=== PATIENT | female | born 1960 | race African-American/Black ===

== ENCOUNTER 2016-12-21 07:24 | Day surgery (SDC) | payer MEDICAID ==
[~2016-12-21 07:24] MED LIST: BUPIVACAINE HCL 0.75% INJ/PF (7.5 MG/1 ML) 10 ML SDV OS PRN; FENTANYL CITRATE INJ/PF 100 MCG/2 ML AMPUL ONE; KETOROLAC TROMETHAMINE 0.45% 4 DROP/0.4 ML DROPERETTE OS PRN; MIDAZOLAM 2 MG/2 ML INJ ONE
[2016-12-21] MEDS ORDERED: LIDOCAINE 1% INJ-PF (10 MG/ML) 30 ML SDV ONE (07:41)
[2016-12-21] MEDS ORDERED: CHONDR SU A NA/HYALUR INTRAOC KIT (SURGICARE) ONE (07:41)
[2016-12-21] MEDS ORDERED: EPINEPHRINE INJ/PF 1 MG/1 ML AMPULE ONE (07:41)
[2016-12-21] MEDS: CYCLOPENTOLATE 0.2%/PHENYLEPHRINE 1% OPH SOLN 2 ML OS PRN ×3 (07:47→08:07)
[2016-12-21] MEDS: BESIFLOXACIN HCL 0.6% OPH SUSP 5 ML BOTTLE OS PRN ×4 (07:47→08:52)
[2016-12-21] MEDS: TROPICAMIDE 1% OPH SOLN 3 ML OS PRN ×3 (07:47→08:07)
[2016-12-21] MEDS: TETRACAINE HCL 0.5% OPH SOLN 2 ML OS PRN ×3 (07:48→08:27)
--- NOTE | 2016-12-24 20:39 | [facility] DISCHARGE SUMMARY E ---
[facility] Discharge Summary NAME: PANCHO ARCE AGE: 56Y ADMITTED: 12/21/2016 DISCHARGED: 12/21/2016 HISTORY OF PRESENT ILLNESS AND HOSPITAL COURSE: This is a 56-year-old female who underwent cataract extraction of the left eye. DIAGNOSIS: Cataract, left eye. HOSPITAL COURSE: She underwent surgery because she was having trouble seeing fine print. DISCHARGE INSTRUCTIONS: 1. She should be on a regular diet. 2. No bending at her waist and no heavy lifting. 3. She should use her Besivance, Ilevro, and Durezol at 3 p.m. and 8 p.m. and sleep with a rigid shield. 4. I will see her for her one-day postoperative tomorrow. DICTATING PHYSICIAN: PAM CRWALEY M.D. [id number] PHY#: [id number] ID: [id number] JOB#: [id number] ACCT: [id number] cc:PAM CRAWLEY M.D. >
--- NOTE | 2016-12-24 20:39 | [facility] OPERATIVE REPORT E ---
[facility] Operative Report NAME: PANCHO ARCE AGE: 56Y DATE OF SURGERY: 12/21/2016 ROOM: PREOPERATIVE DIAGNOSIS: Cataract, left eye. POSTOPERATIVE DIAGNOSIS: Cataract, left eye. OPERATION: Cataract extraction with intraocular lens implant of the left eye. SURGEON: PAM CRAWLEY M.D. ANESTHESIA: Topical. PROCEDURE: After obtaining appropriate consent, the patient's left eye was prepped and draped in sterile fashion as well as the surgeon in a sterile manner and cataract surgery was started. First a paracentesis blade was used to make a small side-port incision. Viscoelastic was used to inflate the anterior chamber. Next a 2.4 mm incision was made with the paracentesis blade. A continuous capsulorrhexis incision was made using a cystotome and Utrata forceps. Following this hydrodissection was carried out to make the lens fully loose and mobile and it was rotated 90 degrees. Following this, a zkqgop-tsn-vltrkvy technique was used to phacoemulsify the lens with a CDE of 5.23. The remaining cortex was removed with irrigation/aspiration. Provisc was instilled into the capsular bag to inflate the bag. A SN60WF, 22.5 diopter lens was placed. The remaining viscoelastic material was removed with irrigation/aspiration. Following this, a 10-0 nylon suture was used to close the incision and it was found to be watertight. Vigamox was instilled in the eye and a protective shield was placed over the eye. The patient returned to the postoperative recovery in stable condition. DICTATING PHYSICIAN: PAM CRAWLEY M.D. [id number] PHY#: [id number] ID: [id number] JOB#: [id number] ACCT: [id number] cc:PAM CRAWLEY M.D. >
== END 2016-12-21 09:35 | disposition home or self-care (01) ==
LOC: SC 07:24
PROVIDERS: ATTEND Internal Medicine
PROC: 08RK3JZ Replacement of Left Lens with Synthetic Substitute, Percutaneous Approach (ICD-10-PCS; principal; 2016-12-21 08:30)
DX: H25.12 Age-related nuclear cataract, left eye (principal); I10 Essential (primary) hypertension; G43.909 Migraine, unspecified, not intractable, without status migrainosus; Z87.891 Personal history of nicotine dependence; Z79.899 Other long term (current) drug therapy; Z79.51 Long term (current) use of inhaled steroids
CPT/HCPCS: 66984; V2632; J2250; J3490 ×4; J0171; J3010; 142

== ENCOUNTER 2017-01-18 07:28 | Day surgery (SDC) | payer MEDICAID ==
[~2017-01-18 07:28] MED LIST changes: -BUPIVACAINE HCL 0.75% INJ/PF (7.5 MG/1 ML) 10 ML SDV OS PRN; -FENTANYL CITRATE INJ/PF 100 MCG/2 ML AMPUL ONE; +KETOROLAC TROMETHAMINE 0.45% 4 DROP/0.4 ML DROPERETTE OD PRN; -KETOROLAC TROMETHAMINE 0.45% 4 DROP/0.4 ML DROPERETTE OS PRN; -MIDAZOLAM 2 MG/2 ML INJ ONE
[2017-01-18] MEDS ORDERED: EPINEPHRINE INJ/PF 1 MG/1 ML AMPULE ONE (09:17)
[2017-01-18] MEDS ORDERED: LIDOCAINE 1% INJ-PF (10 MG/ML) 30 ML SDV ONE (09:17)
[2017-01-18] MEDS ORDERED: CHONDR SU A NA/HYALUR INTRAOC KIT (SURGICARE) ONE (09:17)
[2017-01-18] MEDS: TETRACAINE HCL 0.5% OPH SOLN 2 ML OD PRN ×3 (09:57→10:32)
[2017-01-18] MEDS: CYCLOPENTOLATE 0.2%/PHENYLEPHRINE 1% OPH SOLN 2 ML OD PRN ×3 (09:58→10:16)
[2017-01-18] MEDS: TROPICAMIDE 1% OPH SOLN 3 ML OD PRN ×3 (09:58→10:16)
[2017-01-18] MEDS: BESIFLOXACIN HCL 0.6% OPH SUSP 5 ML BOTTLE OD PRN ×3 (09:59→11:00)
[2017-01-18] MEDS ORDERED: FENTANYL CITRATE INJ/PF 100 MCG/2 ML AMPUL ONE (10:12)
[2017-01-18] MEDS ORDERED: MIDAZOLAM 2 MG/2 ML INJ ONE (10:12)
--- NOTE | 2017-01-18 22:04 | [facility] OPERATIVE REPORT E ---
[facility] Operative Report NAME: PANCHO ARCE AGE: 56Y DATE OF SURGERY: 01/18/2017 ROOM: PREOPERATIVE DIAGNOSIS: Cataract, right eye. POSTOPERATIVE DIAGNOSIS: Cataract, right eye. OPERATION: Cataract extraction with intraocular lens implant of the right eye. SURGEON: PAM CRAWLEY M.D. ANESTHESIA: Topical. PROCEDURE: After obtaining appropriate consent, the patient's right eye was prepped and draped in sterile fashion as well as the surgeon in a sterile manner and cataract surgery was started. First a paracentesis blade was used to make a small side-port incision. Viscoelastic was used to inflate the anterior chamber. Next a 2.4 mm incision was made with the paracentesis blade. A continuous capsulorrhexis incision was made using a cystotome and Utrata forceps. Following this hydrodissection was carried out to make the lens fully loose and mobile and it was rotated 90 degrees. Following this, a nijgim-orb-bovwwve technique was used to phacoemulsify the lens with a CDE of 3.36. The remaining cortex was removed with irrigation/aspiration. Provisc was instilled into the capsular bag to inflate the bag. A SN60WF, 22.0 diopter lens was placed. The remaining viscoelastic material was removed with irrigation/aspiration. Following this, a 10-0 nylon suture was used to close the incision and it was found to be watertight. Vigamox was instilled in the eye and a protective shield was placed over the eye. The patient returned to the postoperative recovery in stable condition. DICTATING PHYSICIAN: PAM CRAWLEY M.D. [id number] [id number] PHY#: [id number] ID: [id number] JOB#: [id number] ACCT: [id number] cc:PAM CRAWLEY M.D. >
--- NOTE | 2017-01-18 22:09 | [facility] DISCHARGE SUMMARY E ---
[facility] Discharge Summary NAME: PANCHO ARCE AGE: 56Y ADMITTED: 01/18/2017 DISCHARGED: 01/18/2017 HISTORY OF PRESENT ILLNESS AND HOSPITAL COURSE: This is a 66-year-old female who underwent cataract extraction of the right eye. DIAGNOSIS: Cataract, right eye. HOSPITAL COURSE: She underwent surgery because she was having difficulty reading road signs and the newspaper. DISCHARGE INSTRUCTIONS: 1. She should be on a regular diet. 2. No bending at her waist and no heavy lifting. 3. She should use her Besivance, Ilevro, and Durezol at 3 p.m. and 8 p.m. and sleep with a rigid shield. 4. I will see her for her one-day postoperative tomorrow. DICTATING PHYSICIAN: PAM CRAWLEY M.D. [id number] PHY#: [id number] ID: [id number] JOB#: [id number] ACCT: [id number] cc:PAM CRAWLEY M.D. >
== END 2017-01-18 12:01 | disposition home or self-care (01) ==
LOC: SC 07:28
PROVIDERS: ATTEND Internal Medicine
PROC: 08RJ3JZ Replacement of Right Lens with Synthetic Substitute, Percutaneous Approach (ICD-10-PCS; principal; 2017-01-18 11:00)
DX: H25.11 Age-related nuclear cataract, right eye (principal); K21.9 Gastro-esophageal reflux disease without esophagitis; B02.33 Zoster keratitis; H43.813 Vitreous degeneration, bilateral; Z96.1 Presence of intraocular lens; I10 Essential (primary) hypertension; J45.909 Unspecified asthma, uncomplicated; G43.909 Migraine, unspecified, not intractable, without status migrainosus; G40.909 Epilepsy, unspecified, not intractable, without status epilepticus; Z79.899 Other long term (current) drug therapy; Z87.891 Personal history of nicotine dependence
CPT/HCPCS: 66984; V2632; J2250; J3490 ×4; J0171; J3010; 142

== ENCOUNTER 2017-07-01 13:38 | Emergency (ER) | payer MEDICAID ==
[2017-07-01] MEDS ORDERED: IPRATROPIUM/ALBUTEROL 0.5-2.5 MG/3 ML AMPUL NEB ONE (15:12)
[2017-07-01] MEDS ORDERED: PREDNISONE 20 MG TABLET PO ONE (15:12)
--- NOTE | 2017-07-01 15:28 | ER Document Report ---
HPI - HPI Patient complains to provider of: Cold symptoms Onset: Last week Onset/Duration: Persistent Quality of pain: Achy Pain Level: 4 Context: Patient presents complaining of cold symptoms for the past week. Patient states she has a sore throat when she coughs. Cough has been nonproductive. Patient denies any fever, nausea, vomiting or diarrhea. Patient does report a nosebleed at home 2 episodes. No active bleeding at this time. Associated Symptoms: Body/muscle aches, Nonproductive cough, Rhinnorhea, Sore throat. denies: Earache, Fever, Nausea Exacerbated by: Denies Relieved by: Denies Similar symptoms previously: Yes Recently seen / treated by doctor: No - ROS ROS below otherwise negative: Yes Systems Reviewed and Negative: Yes All other systems reviewed and negative - CONSTITUTIONAL Constitutional: DENIES: Fever, Chills - EENT EENT: REPORTS: Sore Throat, Nasal Drainage-Clear, Congestion - CARDIOVASCULAR Cardiovascular: DENIES: Chest pain - RESPIRATORY Respiratory: REPORTS: Coughing. DENIES: Trouble Breathing - GASTROINTESTINAL Gastrointestinal: DENIES: Nausea, Patient vomiting - REPRODUCTIVE Reproductive: DENIES: : - MUSCULOSKELETAL Musculoskeletal: DENIES: Back Pain - DERM Skin Color: Normal Skin Problems: None Past Medical History - General Information source: Patient - Social History Smoking Status: Current Every Day Smoker Smoking Education Provided: Yes - For at least 3 minutes Frequency of alcohol use: None Drug Abuse: None Occupation: None Family History: Reviewed & Not Pertinent, Arthritis, CAD, CVA, DM, Hyperlipidemia, Hypertension - Past Medical History Cardiac Medical History: Reports: Hx Hypertension Denies: Hx Heart Attack Pulmonary Medical History: Reports: Hx Asthma - INHALER Neurological Medical History: Reports: Hx Migraine, Hx Seizures - LAST WHEN 15 YRS OLD,CAUSE UNK. Denies: Hx Cerebrovascular Accident Renal/ Medical History: Reports: Hx Kidney Stones GI Medical History: Reports: Hx Gastroesophageal Reflux Disease. Denies: Hx Hepatitis, Hx Hiatal Hernia, Hx Pancreatitis, Hx Ulcer Musculoskeltal Medical History: Reports Hx Arthritis, Reports Hx Musculoskeletal Deformity, Reports Hx Musculoskeletal Trauma Psychiatric Medical History: Reports: Hx Anxiety, Hx Bipolar Disorder, Hx Depression, Hx Schizophrenia Traumatic Medical History: Reports: Hx Fractures - RT ankle ,denies sugery , reports cast application only Infectious Medical History: Denies: Hx Hepatitis Past Surgical History: Reports: Hx Abdominal Surgery, Hx Appendectomy - 1993, "emergency", Hx Hysterectomy, Hx Orthopedic Surgery - right patella replacement. Denies: Hx Mastectomy, Hx Open Heart Surgery, Hx Pacemaker - Immunizations Immunizations up to date: No Hx Diphtheria, Pertussis, Tetanus Vaccination: No - ukn Vertical Provider Document - CONSTITUTIONAL Agree With Documented VS: Yes Exam Limitations: No Limitations General Appearance: WD/WN, No Apparent Distress - INFECTION CONTROL TRAVEL OUTSIDE OF THE [place] IN LAST 30 DAYS: No - HEENT HEENT: Atraumatic, Normal ENT Exam, Normocephalic - NECK Neck: Normal Inspection, Supple. negative: Lymphadenopathy-Left, Lymphadenopathy-Right - RESPIRATORY Respiratory: No Respiratory Distress, Chest Non-Tender, Wheezing - mild with cough O2 Sat by Pulse Oximetry: 98 - CARDIOVASCULAR Cardiovascular: Regular Rate, Regular Rhythm, No Murmur - BACK Back: Normal Inspection - MUSCULOSKELETAL/EXTREMETIES Musculoskeletal/Extremeties: MAEW, FROM - NEURO Level of Consciousness: Awake, Alert, Appropriate Motor/Sensory: No Motor Deficit - DERM Integumentary: Warm, Dry, No Rash Course - Re-evaluation Re-evalutation: 07/01/17 15:51 Patient with decreased wheezing after nebulizer treatment. Patient without any findings concerning for pneumonia. Patient advised of worsening signs or symptoms that she should return mainly for. Patient verbalized understanding and agrees with plan of care. Smoking cessation handout provided the patient - Vital Signs Vital signs: Temp Pulse Resp BP Pulse Ox 98.2 F 80 18 124/71 98 07/01/17 14:26 07/01/17 14:26 07/01/17 14:26 07/01/17 14:26 07/01/17 14:26 Discharge - Discharge Clinical Impression: Upper respiratory infection Qualifiers: URI type: unspecified URI Qualified Code(s): J06.9 - Acute upper respiratory infection, unspecified Asthma Qualifiers: Asthma severity: mild Asthma persistence: unspecified Asthma complication type : unspecified Qualified Code(s): J45.998 - Other asthma Condition: Stable Disposition: HOME, SELF-CARE Additional Instructions: Return immediately for any new or worsening symptoms Followup with your primary care provider, call tomorrow to make a followup appointment UPPER RESPIRATORY ILLNESS: You have a viral infection of the respiratory passages -- a "cold." This common infection causes nasal congestion, drainage, and often sore throat and cough. It is highly contagious. The disease usually lasts about 10 to 14 days. There is no "cure" for the viral infection -- it must run its course. If there is a complication, such as bacterial infection in the nose, sinuses, middle ear, or bronchial tubes, antibiotics may be required. The antibiotics won't affect the virus. Drink plenty of fluids. A humidifier may help. An expectorant medication or decongestant may make you more comfortable. Use acetaminophen or ibuprofen for fever or aches. See the doctor if fever persists over two days, if there is any significant worsening of your symptoms, or if you simply fail to improve as expected. BRONCHOSPASM: You have tightness in the bronchial tubes, called bronchospasm. This often occurs with bronchial infections. Allergies, inhaled chemicals, and polluted or cold air can also provoke bronchospasm. It's more likely in patients with asthma in the family. Emergency treatment of bronchospasm may include adrenaline shots or bronchodilator aerosol. You may feel lightheaded and have a rapid pulse for an hour or two. Rest and get plenty of fluids. At home, we'll treat you with a bronchodilator inhaler. Antibiotics and corticosteroids may be required for some patients. Until you recover, avoid chemical fumes, dusts, pollens, and exercising in very cold or dry air. If you smoke, stop now!! If you develop a fever, increased wheezing, chest pain, or severe shortness of breath, you should contact the doctor immediately. INHALED BRONCHODILATORS: You have received a treatment of and/or prescription for an inhaled bronchodilator -- a medication which stimulates the airways in the lung to dilate. This improves the flow of air in asthma, bronchitis, and emphysema. These medicines have some similarity to adrenaline, and can cause similar side effects: shakiness, racing heart, and a sense of nervousness. These side effects decrease with time. Contact your doctor if these side effects are severe. Do not over-use the medicine. Too-frequent use of the inhaler may make it ineffective. Call your doctor if the inhaler is not controlling your symptoms at the prescribed doses. STEROID MEDICATION: You have been given an injection of or oral medicine of the cortisone/ steroid class. This medication is used to control inflammation or allergy. Maxime t is usually only given for a short period of time, until the acute process subsides. There are usually no side effects from short-term use of cortisone-like medications. Some persons feel an increased sense of well-being and are not sleepy at bedtime. Long-term use of cortisone medications is best avoided, unless required for a severe condition. If your condition does not remit, or relapses after the course of corticosteroid medication, you should consult your physician. USE OF ACETAMINOPHEN (Tylenol): Acetaminophen may be taken for pain relief or fever control. It's much safer than aspirin, offering a wider range of "safe" dosages. It is safe during . Some brand names are Tylenol, Panadol, Datril, Anacin 3, Tempra, and Liquiprin. Acetaminophen can be repeated every four hours. The following are maximum recommended dosages: >89 pounds or adults 650 mg to 900 mg Acetaminophen can be repeated every four hours. Maximum dose not to exceed 4000 mg a day. SMOKING: If you smoke, you should stop smoking. The tar and chemicals in cigarette smoke are harmful. Smoking has been shown to cause: emphysema chronic bronchitis lung cancer mouth and throat cancer stomach and pancreas cancer premature aging defects In addition, smoking increases ear and lung infections in children of smokers. FOLLOW-UP CARE: If you have been referred to a physician for follow-up care, call the physician s office for an appointment as you were instructed or within the next two days. If you experience worsening or a significant change in your symptoms, notify the physician immediately or return to the Emergency Department at any time for re-evaluation. Prescriptions: Benzonatate [Tessalon Perle 100 mg Capsule] 100 mg PO Q8HP PRN #20 cap PRN Reason: Prednisone [Deltasone 20 mg Tablet] 3 tab PO DAILY 4 Days tablet Forms: Smoking Cessation Education Referrals: SNEHAL VERA MD [ACTIVE STAFF] - 07/03/17
[2017-07-01 16:11] VITALS: BP 133/60
== END 2017-07-01 16:11 | disposition home or self-care (01) ==
LOC: ER 13:38
DX: J06.9 Acute upper respiratory infection, unspecified (principal); J45.998 Other asthma; J02.9 Acute pharyngitis, unspecified; R05 Cough; R04.0 Epistaxis; M79.1 Myalgia; F17.200 Nicotine dependence, unspecified, uncomplicated
CPT/HCPCS: 94640; 99283; J7512; J7620

== ENCOUNTER 2017-10-06 11:47 | Emergency (ER) | payer OTHER, MEDICAID ==
[2017-10-06 11:54] VITALS: BP 132/63
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
== END 2017-10-06 14:22 | disposition home or self-care (01) ==
LOC: ER 11:47
DX: S80.01XA Contusion of right knee, initial encounter (principal); S80.02XA Contusion of left knee, initial encounter; M25.571 Pain in right ankle and joints of right foot; M25.561 Pain in right knee; M25.562 Pain in left knee; I10 Essential (primary) hypertension; M79.89 Other specified soft tissue disorders; V87.7XXA Person injured in collision between other specified motor vehicles (traffic), initial encounter; F17.210 Nicotine dependence, cigarettes, uncomplicated; J45.909 Unspecified asthma, uncomplicated
CPT/HCPCS: 99283; 99406

== ENCOUNTER → 2018-01-30 | Outpatient (CLI) | payer MEDICAID ==
--- NOTE | 2018-01-31 09:07 | RADIOLOGY REPORT (SQ) ---
EXAM DESCRIPTION: U/S THYROID/SFT TISS HD NECK COMPLETED DATE/TIME: 01/30/2018 5:24 pm REASON FOR STUDY: E07.89 OTHER SPECIFIED DISORDERS OF THYROID E07.89 OTHER SPECIFIED DISORDERS OF T HYROID COMPARISON: None. TECHNIQUE: Dynamic and static nunez-scale images acquired of the thyroid gland. Selected additional c olor/power Doppler images recorded. All images stored to PACS. LIMITATIONS: None. FINDINGS: The thyroid gland is heterogeneous in echotexture but grossly normal in size. The right lobe thyroid is 4.5 x 2.4 x 2.2 cm in size. Along the medial aspect right lower pole gland , a 2.3 x 1.5 x 1 cm nodule is present with color flow. No calcifications. No cystic change. The left lobe thyroid is 4.6 x 2.7 x 2.6 cm in size. Along the anterior aspect left lobe thyroid, a 2.3 x 1.8 x 1 cm nodule is present with internal color flow. No calcifications. No cystic change. Thyroid isthmus is 6 mm in thickness. 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 TECHNICAL DOCUMENTATION: JOB ID: [id number] [employer]- All Rights Reserved Reading location - IP/workstation name: [email or web address]
== END ==
LOC: RAD 17:50
PROVIDERS: ATTEND Otolaryngology
DX: E04.2 Nontoxic multinodular goiter (principal)
CPT/HCPCS: 76536

== ENCOUNTER → 2018-02-14 | Outpatient (CLI) | payer MEDICAID ==
[2018-02-14 16:12] LABS: FREE T4 (FREE THYROXINE) 1.08 ng/dL (0.78-2.19)
[2018-02-14 16:26] LABS: THYROID STIMULATING HORMONE 0.3 uIU/mL (0.47-4.68)
== END ==
LOC: LAB 13:44
PROVIDERS: ATTEND Otolaryngology
DX: E07.89 Other specified disorders of thyroid (principal); E04.2 Nontoxic multinodular goiter
CPT/HCPCS: 36415; 84439; 84443; 86376

== ENCOUNTER 2018-02-23 10:35 | Emergency (ER) | payer MEDICAID ==
[2018-02-23] MEDS ORDERED: METOCLOPRAMIDE HCL ORAL SOLN 10 MG/10 ML UDCUP PO ONE (11:04)
[2018-02-23] MEDS ORDERED: NORMAL SALINE 1000 ML 1,000 ML IV ONE (11:04)
[2018-02-23] MEDS ORDERED: LIDOCAINE 2% VISCOUS SOLN 20 ML UDCUP PO ONE (11:04)
[2018-02-23] MEDS ORDERED: MAG HYDROX/AL HYDROX/SIMETH SUSP 30 ML UDCUP PO ONE (11:04)
--- NOTE | 2018-02-23 11:09 | RADIOLOGY REPORT (SQ) ---
EXAM DESCRIPTION: CHEST SINGLE VIEW COMPLETED DATE/TIME: 02/23/2018 11:02 am REASON FOR STUDY: Chest Pain COMPARISON: 07/01/2014. EXAM PARAMETERS: NUMBER OF VIEWS: One view. TECHNIQUE: Single frontal radiographic view of the chest acquired. RADIATION DOSE: NA LIMITATIONS: None. FINDINGS: LUNGS AND PLEURA: No opacities, masses or pneumothorax. No pleural effusion. MEDIASTINUM AND HILAR STRUCTURES: No masses. Contour normal. HEART AND VASCULAR STRUCTURES: Heart normal in size. Normal vasculature. BONES: No acute findings. HARDWARE: None in the chest. OTHER: No other significant finding. IMPRESSION: NO ACUTE RADIOGRAPHIC FINDING IN THE CHEST. TECHNICAL DOCUMENTATION: JOB ID: [id number] [employer]- All Rights Reserved Reading location - IP/workstation name: [email or web address]
[2018-02-23 11:22] LABS: ABSOLUTE EOSINOPHILS # (AUTO) 0.1 10^3/uL (0.0-0.6); ABSOLUTE LYMPHOCYTES (AUTO) 1.1 10^3/uL (0.5-4.7); ABSOLUTE MONOCYTES (AUTO) 0.7 10^3/uL (0.1-1.4); ABSOLUTE NEUT (AUTO) 6.3 10^3/uL (1.7-8.2); BASOPHILS % (AUTO) 0.3 % (0-2); HEMATOCRIT 36.2 % (36.0-47.0); HEMOGLOBIN 12.2 g/dL (12.0-15.5); LYMPHOCYTES % (AUTO) 13.4 % (13-45); MEAN CORPUSCULAR HEMOGLOBIN 28.8 pg (27.0-33.4); MEAN CORPUSCULAR HGB CONC 33.8 g/dL (32.0-36.0); MEAN CORPUSCULAR VOLUME 85 fl (80-97); MONOCYTES % (AUTO) 8.1 % (3-13); PLATELET COUNT 208 10^3/uL (150-450); RED BLOOD COUNT 4.24 10^6/uL (3.72-5.28); RED CELL DISTRIBUTION WIDTH 14.2 % (11.5-14.0); SEGMENTED NEUTROPHILS % (AUTO) 77.2 % (42-78); TOTAL CELLS COUNTED % (AUTO) 100 %; WHITE BLOOD COUNT 8.1 10^3/uL (4.0-10.5)
[2018-02-23 11:40] LABS: ALANINE AMINOTRANSFERASE 12 U/L (9-52); ALKALINE PHOSPHATASE 112 U/L (38-126); ANION GAP 16 (5-19); ASPARTATE AMINO TRANSFERASE 18 U/L (14-36); BILIRUBIN,DIRECT 0.4 mg/dL (0.0-0.4); BILIRUBIN,TOTAL 0.5 mg/dL (0.2-1.3); BLOOD UREA NITROGEN 17 mg/dL (7-20); CARBON DIOXIDE 24 mmol/L (22-30); CHLORIDE 103 mmol/L (98-107); CREATINE KINASE 54 U/L (30-135); GLUCOSE 92 mg/dL (75-110); LIPASE 54.5 U/L (23-300); POTASSIUM 4.1 mmol/L (3.6-5.0); SODIUM 143.1 mmol/L (137-145); TOTAL PROTEIN 9.1 g/dL (6.3-8.2)
[2018-02-23 11:58] LABS: CREATINE KINASE MB < 0.22 ng/mL (<4.55); TROPONIN I < 0.012 ng/mL
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
[2018-02-23 12:44] VITALS: BP 107/63
--- NOTE | 2018-02-23 20:43 | EKG REPORT ---
SEVERITY:- ABNORMAL ECG - SINUS RHYTHM APCs : Confirmed by: Anabelle Orozco 23-Feb-2018 20:43:17
== END 2018-02-23 12:48 | disposition home or self-care (01) ==
LOC: ER 10:35
DX: R07.9 Chest pain, unspecified (principal); I10 Essential (primary) hypertension; Z87.442 Personal history of urinary calculi; Z90.710 Acquired absence of both cervix and uterus
CPT/HCPCS: 93005; 99285; 36415; 82553; 82550; 83690; 83735; 85025; 80053; 84484; 71045; 93010; J3490 ×3; J7030

== ENCOUNTER → 2018-03-12 | Outpatient (CLI) | payer MEDICAID ==
--- NOTE | 2018-03-12 11:29 | RADIOLOGY REPORT (SQ) ---
EXAM DESCRIPTION: UPPER GI/SM BOWEL COMPLETED DATE/TIME: 03/12/2018 10:25 am REASON FOR STUDY: EPIGASTIC PAIN R10.13 EPIGASTRIC PAIN COMPARISON: CT chest 02/23/2018 CT abdomen pelvis 08/26/2015 TECHNIQUE: Under fluoroscopic guidance, patient ingested effervescent granules followed by thick an d thin barium. Fluoroscopic spot images and routine radiographic images acquired and stored on PACS . Following evaluation of esophagus and stomach, additional barium administered with serial delayed ab dominal radiographs until colonic identification. Fluoroscopic images recorded of the terminal ileu m. 12 MM BARIUM TABLET GIVEN: Yes No significant delay in passage. FLUOROSCOPY TIME: 1 minutes 53 seconds 30 digital radiographic images saved to PACS. LIMITATIONS: None. FINDINGS: Optomechanical Engineer film demonstrates a normal bowel gas pattern. No ectopic calcifications. Bony stru ctures unremarkable. NEUROMUSCULAR COORDINATION OF SWALLOW: Normal. No aspiration. ESOPHAGEAL MOTILITY: Normal peristalsis. No esophageal spasm. ESOPHAGEAL MUCOSA: Normal mucosa without masses or ulceration. GASTRO-ESOPHAGEAL JUNCTION: No hiatal hernia. Unprovoked gastroesophageal reflux to the mid 3rd of t he esophagus STOMACH: Normal without masses or ulcerations. GASTRIC OUTLET: No delay in emptying. Normal pylorus. DUODENAL BULB: Normal distention. No spasm or ulceration. DUODENUM: Mucosa normal. No extrinsic masses or malrotation. PROXIMAL SMALL BOWEL: Normal as visualized. JEJUNUM: Normal mucosal pattern. No dilatation, segmentation, strictures or masses. ILEUM: Normal mucosal pattern. No dilatation, segmentation, strictures or masses. TERMINAL ILEUM AND ILEO-CECAL VALVE: Normal mucosal pattern without cobble-stoning or stricture. Nor mal compression. PROXIMAL COLON: Incompletely imaged. No abnormality. NON-GI TRACT STRUCTURES: No significant finding. OTHER: No other significant finding. IMPRESSION: No hiatal hernia. Unprovoked gastroesophageal reflux to the mid 3rd of the esophagus. Otherwise unremarkable esophagram/ upper GI/small bowel follow-through COMMENT: Quality ID [id number]: Final reports for procedures using fluoroscopy that document radiation exp osure indices, or exposure time and number of fluorographic images (if radiation exposure indices are not available) TECHNICAL DOCUMENTATION: JOB ID: [id number] [employer]- All Rights Reserved Reading location - IP/workstation name: [facility]
== END ==
LOC: RAD 08:54
PROVIDERS: ATTEND Internal Medicine
DX: R10.13 Epigastric pain (principal); K21.9 Gastro-esophageal reflux disease without esophagitis
CPT/HCPCS: 74249

== ENCOUNTER 2018-10-03 15:29 | Observation (INO) | payer MEDICAID ==
[2018-10-03] MEDS ORDERED: HEPARIN SODIUM,PORCINE/D5W 25,000 UNIT/250 ML RTUINJ IV PRN (18:12)
[2018-10-03] MEDS ORDERED: NITROGLYCERIN/D5W 50 MG/250 ML RTUINJ IV PRN (18:13)
[2018-10-03] MEDS ORDERED: NITROGLYCERIN/D5W 50 MG/250 ML RTUINJ IV ONE (18:16)
[2018-10-03 18:26] LABS: ALANINE AMINOTRANSFERASE 15 U/L (9-52); ALBUMIN 4.1 g/dL (3.5-5.0); ALKALINE PHOSPHATASE 134 U/L (38-126); ANION GAP 11 (5-19); ASPARTATE AMINO TRANSFERASE 21 U/L (14-36); BILIRUBIN,DIRECT 0.3 mg/dL (0.0-0.4); BILIRUBIN,TOTAL 0.3 mg/dL (0.2-1.3); BLOOD UREA NITROGEN 20 mg/dL (7-20); CALCIUM 9.2 mg/dL (8.4-10.2); CARBON DIOXIDE 27 mmol/L (22-30); CHLORIDE 96 mmol/L (98-107); CREATINE KINASE 64 U/L (30-135); GLUCOSE 94 mg/dL (75-110); POTASSIUM 3.4 mmol/L (3.6-5.0); SODIUM 134.2 mmol/L (137-145); TOTAL PROTEIN 9.2 g/dL (6.3-8.2)
[2018-10-03 18:29] LABS: HEMATOCRIT 36.9 % (36.0-47.0); HEMOGLOBIN 12.5 g/dL (12.0-15.5); MEAN CORPUSCULAR HEMOGLOBIN 28.6 pg (27.0-33.4); MEAN CORPUSCULAR HGB CONC 33.8 g/dL (32.0-36.0); MEAN CORPUSCULAR VOLUME 85 fl (80-97); PLATELET COUNT 237 10^3/uL (150-450); RED BLOOD COUNT 4.36 10^6/uL (3.72-5.28); RED CELL DISTRIBUTION WIDTH 14.1 % (11.5-14.0); WHITE BLOOD COUNT 4.8 10^3/uL (4.0-10.5)
[2018-10-03 18:37] LABS: ABSOLUTE LYMPHOCYTES# (MANUAL) 0.8 10^3/uL (0.5-4.7); ABSOLUTE MONOCYTES # (MANUAL) 0.5 10^3/uL (0.1-1.4); ABSOLUTE NEUTROPHILS# (MANUAL) 3.4 10^3/uL (1.7-8.2); BASOPHILS % (MANUAL) 0 % (0-2); EOSINOPHILS % (MANUAL) 2 % (0-6); LYMPHOCYTES % (MANUAL) 17 % (13-45); MONOCYTES % (MANUAL) 10 % (3-13); SEGMENTED NEUTROPHILS % (MAN) 71 % (42-78); TOTAL CELLS COUNTED 100
[2018-10-03 18:37] LABS: CREATINE KINASE MB 0.25 ng/mL (<4.55)
[2018-10-03 18:38] LABS: ANISOCYTOSIS SLIGHT; PLATELET COMMENT ADEQUATE; TOXIC GRANULATION SLIGHT
[2018-10-03 18:45] LABS: FREE T4 (FREE THYROXINE) 1.86 ng/dL (0.78-2.19)
[2018-10-03 18:46] LABS: TROPONIN I < 0.012 ng/mL
[2018-10-03 18:59] LABS: THYROID STIMULATING HORMONE 0.38 uIU/mL (0.47-4.68)
[2018-10-03] MEDS ORDERED: HEPARIN SOD (PORCINE) 1,000 UNIT/ML 10 ML VIAL IV ONE (19:00)
[2018-10-03] MEDS ORDERED: ATORVASTATIN CALCIUM 80 MG TABLET PO ONE ×2 (19:00→22:15)
[2018-10-03 19:28] LABS: INTERNATIONAL RATION (INR) 0.94; PROTHROMBIN TIME 13.1 SEC (11.4-15.4)
[2018-10-03 19:29] LABS: PARTIAL THROMBOPLASTIN TIME 27.9 SEC (23.5-35.8)
--- NOTE | 2018-10-03 19:45 | EKG REPORT ---
SEVERITY:- ABNORMAL ECG - SINUS RHYTHM LVH W/ REPOL ABNORMALITIES, POSSIBLE ISCHEMIA NONSPECIFIC ST-T CHANGES ANTERIOR LEADS : Confirmed by: Sergio Sánchez MD 03-Oct-2018 19:44:47
[2018-10-03 20:16] LABS: APPEARANCE,URINE CLEAR; BILIRUBIN,URINE NEGATIVE (NEGATIVE); COLOR,URINE STRAW; GLUCOSE, URINE NEGATIVE (NEGATIVE); KETONES,URINE NEGATIVE (NEGATIVE); LEUKOCYTE ESTERASE,URINE LARGE (NEGATIVE); NITRITE,URINE NEGATIVE (NEGATIVE); PROTEIN,URINE NEGATIVE (NEGATIVE); URINE SPECIFIC GRAVITY 1.008; UROBILINOGEN,URINE NEGATIVE mg/dL (<2.0)
[2018-10-03] MEDS ORDERED: HEPARIN SOD (PORCINE) 1,000 UNIT/ML 10 ML VIAL IV PRN (21:12)
[2018-10-03 21:42] LABS: UR PRO/CREAT RATIO RESULT 0.5 mg/mg (0.0-0.2); URINE CREATININE 37.5 mg/dL (15-278); URINE PROTEIN 19.7 mg/dL (<12)
--- NOTE | 2018-10-03 21:46 | RADIOLOGY REPORT (SQ) ---
EXAM DESCRIPTION: Chest one view CLINICAL HISTORY: 58 years Female, chest pain; abnormal EKG COMPARISON: 02/23/2018 FINDINGS: Lungs are clear, with no focal infiltrate, pneumothorax, or pleural effusion. Mediastinum is within normal limits for this positioning. Bony structures are unremarkable. IMPRESSION: 1. No acute pulmonary findings.
[2018-10-03] MEDS: ASPIRIN 81 MG TABLET, CHEWABLE PO SCH (22:06)
[2018-10-03] MEDS: METOPROLOL TARTRATE 25 MG TABLET PO SCH (22:06)
--- NOTE | 2018-10-03 22:27 | PDOC H&P ---
History of Present Illness Admission Date/PCP: 10/03/18 15:29 SNEHAL VERA MD History of Present Illness: PANCHO ARCE is a 58 year old female,She came to the office today for eval uation of chest pain, the chest pain is retrosternal, described as tightness, in the office a 12-lead EKG was done, it was sinus rhythm, There was inverted T wave in precordial leads. Patient is a poor historian, she stated in the office that the chest pain felt like she was bloated like gas she did not relate the chest pain to exertion or emotion that would suggest ischemic chest pain at the same time she did not relate the chest pain to food intake that was in the office, I did a 12-lead EKG in the office that was sinus rhythm with inverted T waves in precordial leads. When she arrived into the hospital she told the RN nurse that the pain was pressure-like and intermittent the twelve-lead EKG that was done was sinus rhythm but now demonstrated deep symmetrical inversion of T waves in precordial leads, ultrasound of the gall bladder was done as well,it showed multiple gallstones Past Medical History Cardiac Medical History: Reports: Hypertension Pulmonary Medical History: Reports: Asthma - INHALER Neurological Medical History: Reports: Migraine, Seizures - LAST WHEN 15 YRS OLD,CAUSE UNK GI Medical History: Reports: Gastroesophageal Reflux Disease Musculoskeltal Medical History: Reports: Arthritis Psychiatric Medical History: Reports: Bipolar Disorder, Depression Past Surgical History Past Surgical History: Reports: Appendectomy - 1993, "emergency", Hysterectomy, Orthopedic Surgery - right patella replacement, Other - Cataracts Social History Smoking Status: Current Every Day Smoker Cigarettes Packs Per Day: 0.5 Number of Years Smokin Frequency of Alcohol Use: Occasional Hx Recreational Drug Use: No Drugs: None Hx Prescription Drug Abuse: Yes Family History Family History: Arthritis, CAD, CVA, DM, Hyperlipidemia, Hypertension. denies: COPD, Malignancy, Thyroid Disfunction Parental Family History Reviewed: Yes Children Family History Reviewed: Yes Sibling(s) Family History Reviewed.: Yes Medication/Allergy Home Medications: Amlodipine Besylate [Norvasc 10 mg Tablet] 10 mg PO DAILY 10/04/18 Butalb/Acetaminophen/Caffeine [Fioricet (50-325-40 mg) Tablet] 1 tab PO Q4HP PRN 10/04/18 Citalopram Hydrobromide [Celexa 20 mg Tablet] 20 mg PO DAILY 10/04/18 Clonidine HCl [Catapres 0.1 mg Tablet] 0.1 mg PO QHS 10/04/18 Hydrochlorothiazide [Hydrodiuril 25 mg Tablet] 25 mg PO DAILY 10/04/18 Omeprazole 40 mg PO DAILY 10/04/18 Paliperidone [Invega 6 mg Tab.er] 6 mg PO DAILY 10/04/18 Allergies/Adverse Reactions: No Known Allergies Allergy (Verified 07/01/17 13:43) Review of Systems Constitutional: ABSENT: chills, fever(s), headache(s), weight gain, weight loss Eyes: ABSENT: visual disturbances Ears: ABSENT: hearing changes Cardiovascular: PRESENT: chest pain. ABSENT: dyspnea on exertion, edema, orthropnea, palpitations Respiratory: ABSENT: cough, hemoptysis Gastrointestinal: ABSENT: abdominal pain, constipation, diarrhea, hematemesis, hematochezia, nausea, vomiting Genitourinary: ABSENT: dysuria, hematuria Musculoskeletal: ABSENT: joint swelling Integumentary: ABSENT: rash, wounds Neurological: ABSENT: abnormal gait, abnormal speech, confusion, dizziness, focal weakness, syncope Psychiatric: ABSENT: anxiety, depression, homidical ideation, suicidal ideation Endocrine: ABSENT: cold intolerance, heat intolerance, menstrual abnormalities, polydipsia, polyuria Hematologic/Lymphatic: ABSENT: easy bleeding, easy bruising, lymphadenopathy Physical Exam Vital Signs: Temp Pulse Resp BP Pulse Ox 98.0 F 88 20 115/71 99 10/03/18 20:23 10/03/18 20:23 10/03/18 20:23 10/03/18 21:00 10/03/18 20:23 Intake & Output 10/02/18 10/03/18 10/04/18 06:59 06:59 06:59 Intake Total 2 Balance 2 Weight 99.4 kg General appearance: PRESENT: no acute distress, well-developed, well-nourished Head exam: PRESENT: atraumatic, normocephalic Eye exam: PRESENT: conjunctiva pink, EOMI, PERRLA Ear exam: PRESENT: normal external ear exam Mouth exam: PRESENT: moist, tongue midline Neck exam: PRESENT: full ROM Respiratory exam: PRESENT: clear to auscultation melisa Cardiovascular exam: PRESENT: RRR, +S1, +S2 Pulses: PRESENT: normal dorsalis pedis pul, +2 pedal pulses bilateral Vascular exam: PRESENT: normal capillary refill GI/Abdominal exam: PRESENT: normal bowel sounds, soft Rectal exam: PRESENT: deferred Neurological exam: PRESENT: alert, CN II-XII grossly intact Psychiatric exam: PRESENT: appropriate affect, normal mood Skin exam: PRESENT: dry, intact, warm Results Laboratory Results: 10/03/18 18:20 10/03/18 17:50 10/03/18 10/03/18 10/03/18 17:50 17:50 17:50 WBC Cancelled RBC Cancelled Hgb Cancelled Hct Cancelled MCV Cancelled MCH Cancelled MCHC Cancelled RDW Cancelled Plt Count Cancelled Seg Neutrophils % Cancelled Lymphocytes % Cancelled Monocytes % Cancelled Eosinophils % Cancelled Basophils % Cancelled Absolute Neutrophils Cancelled Absolute Lymphocytes Cancelled Absolute Monocytes Cancelled Absolute Eosinophils Cancelled Absolute Basophils Cancelled Sodium 134.2 L Potassium 3.4 L Chloride 96 L Carbon Dioxide 27 Anion Gap 11 BUN 20 Creatinine 0.81 Est GFR ( Amer) > 60 Est GFR (Non-Af Amer) > 60 Glucose 94 Calcium 9.2 Total Bilirubin 0.3 AST 21 ALT 15 Alkaline Phosphatase 134 H Total Protein 9.2 H Albumin 4.1 TSH 0.38 L Free T4 1.86 Urine Color Urine Appearance Urine pH Ur Specific [place] Urine Protein Urine Glucose (UA) Urine Ketones Urine Blood Urine Nitrite Ur Leukocyte Esterase Urine WBC (Auto) Urine RBC (Auto) 10/03/18 10/03/18 18:20 19:05 WBC 4.8 RBC 4.36 Hgb 12.5 Hct 36.9 MCV 85 MCH 28.6 MCHC 33.8 RDW 14.1 H Plt Count 237 Seg Neutrophils % Not Reportable Lymphocytes % Not Reportable Monocytes % Not Reportable Eosinophils % Not Reportable Basophils % Not Reportable Absolute Neutrophils Not Reportable Absolute Lymphocytes Not Reportable Absolute Monocytes Not Reportable Absolute Eosinophils Not Reportable Absolute Basophils Not Reportable Sodium Potassium Chloride Carbon Dioxide Anion Gap BUN Creatinine Est GFR ( Amer) Est GFR (Non-Af Amer) Glucose Calcium Total Bilirubin AST ALT Alkaline Phosphatase Total Protein Albumin TSH Free T4 Urine Color STRAW Urine Appearance CLEAR Urine pH 6.0 Ur Specific [place] 1.008 Urine Protein NEGATIVE Urine Glucose (UA) NEGATIVE Urine Ketones NEGATIVE Urine Blood SMALL H Urine Nitrite NEGATIVE Ur Leukocyte Esterase LARGE H Urine WBC (Auto) 16 Urine RBC (Auto) 2 10/03/18 10/03/18 17:50 17:50 Creatine Kinase 64 CK-MB (CK-2) 0.25 Troponin I < 0.012 Impressions: Chest X-Ray 10/03/18 21:05 IMPRESSION: 1. No acute pulmonary findings. Assessment & Plan - Diagnosis (1) Unstable angina Is this a current diagnosis for this admission?: Yes Plan: The chest pain is very suspicious for ischemic heart disease with a background of abnormal EKG with symmetric T wave inversion, she will be treated with IV heparin, aspirin, nitroglycerin infusion. She has gallstones but there is no evidence of inflammation of the gallbladder
[2018-10-04 03:32] LABS: CREATINE KINASE MB < 0.22 ng/mL (<4.55); TROPONIN I < 0.012 ng/mL
[2018-10-04] MEDS: ACETAMINOPHEN 325 MG TABLET PO PRN ×2 (03:54→16:17)
[2018-10-04] MEDS: METOPROLOL TARTRATE 25 MG TABLET PO SCH ×3 (06:23→21:31)
[2018-10-04] MEDS: ASPIRIN 81 MG TABLET, CHEWABLE PO SCH (09:47)
--- NOTE | 2018-10-04 09:53 | RADIOLOGY REPORT (SQ) ---
EXAM DESCRIPTION: U/S ABDOMEN LIMITED W/O DOP COMPLETED DATE/TIME: 10/03/2018 9:57 pm REASON FOR STUDY: chest pain, abnormal EKG COMPARISON: 04/29/2013 CT abdomen pelvis, 08/13/2015 TECHNIQUE: Dynamic and static grayscale images acquired of the abdomen and recorded on PACS. Additio nal selected color Doppler and spectral images recorded. LIMITATIONS: None. FINDINGS: PANCREAS: No masses. Visualized pancreatic duct normal caliber. LIVER: Redemonstrated hyperechoic region of the lateral left lobe of the liver in keeping with hypode nsity seen on prior CT dated 2015 and likely focal fatty deposition. Echotexture normal. LIVER VASCULATURE: Normal directional flow of the main portal vein and hepatic veins. GALLBLADDER: Multiple gallstones. Normal wall thickness. No pericholecystic fluid. ULTRASOUND-DETECTED SILVA'S SIGN: Negative. INTRAHEPATIC DUCTS AND COMMON DUCT: CBD and intrahepatic ducts normal caliber. No filling defects. INFERIOR VENA CAVA: Normal flow. AORTA: No aneurysm. RIGHT KIDNEY: Normal size. Normal echogenicity. No solid or suspicious masses. No hydronephrosis. No calcifications. PERITONEAL AND RIGHT PLEURAL SPACE: No ascites or effusions. OTHER: No other significant findings. IMPRESSION: 1. Cholelithiasis without evidence of acute cholecystitis. No gallbladder wall thicken ing. No pericholecystic fluid. No biliary ductal dilation. Negative sonographic Silva's sign. Co nsider CT or MRI to further evaluate unexplained pain. 2. Redemonstrated hyperechoic region of the lateral left lobe of the liver in keeping with hypodensi ty seen on prior CT dated 2015 and likely focal fat deposition. TECHNICAL DOCUMENTATION: JOB ID: [id number]- All Rights Reserved Reading location - IP/workstation name: [email or web address]
[2018-10-04 11:16] LABS: APPEARANCE,URINE CLEAR; BILIRUBIN,URINE NEGATIVE (NEGATIVE); COLOR,URINE YELLOW; GLUCOSE, URINE NEGATIVE (NEGATIVE); KETONES,URINE NEGATIVE (NEGATIVE); LEUKOCYTE ESTERASE,URINE LARGE (NEGATIVE); NITRITE,URINE NEGATIVE (NEGATIVE); PROTEIN,URINE NEGATIVE (NEGATIVE); URINE SPECIFIC GRAVITY 1.012
[2018-10-04 11:17] LABS: CREATINE KINASE MB 0.26 ng/mL (<4.55)
[2018-10-04 11:21] LABS: TROPONIN I < 0.012 ng/mL
--- NOTE | 2018-10-04 18:34 | EKG REPORT ---
SEVERITY:- ABNORMAL ECG - SINUS ARRHYTHMIA, RATE 67-75 MULTIFORM ATRIAL PREMATURE COMPLEXES ABNORMAL T, CONSIDER ISCHEMIA, ANT-LAT LEADS : Confirmed by: Sergio Sánchez MD 04-Oct-2018 18:34:10
[2018-10-04] MEDS: HYDROCHLOROTHIAZIDE 25 MG TABLET PO SCH (19:59)
[2018-10-04] MEDS: PALIPERIDONE 6 MG TAB.ER.24 PO SCH (19:59)
[2018-10-04] MEDS: PANTOPRAZOLE SODIUM 40 MG TABLET.DR PO SCH (19:59)
[2018-10-04] MEDS: AMLODIPINE BESYLATE 10 MG TABLET PO SCH (19:59)
[2018-10-04] MEDS: CITALOPRAM HYDROBROMIDE 20 MG TABLET PO SCH (19:59)
[2018-10-04] MEDS: ATORVASTATIN CALCIUM 80 MG TABLET PO SCH (21:31)
[2018-10-04] MEDS: CLONIDINE HCL 0.1 MG TABLET PO SCH (21:31)
--- NOTE | 2018-10-04 21:40 | PDOC PROGRESS REPORT ---
Subjective Progress Note for:: 10/04/18 Subjective:: Patient was seen by the bedside, she is presently chest pain-free, 3 sets of cardiac enzymes negative for acute NE, the intravenous nitro will be discontinued, IV heparin be discontinued hopefully she can get a stress test before discharge Reason For Visit: CHEST PAIN,ABNORMAL EKG Physical Exam Vital Signs: Temp Pulse Resp BP Pulse Ox 98.3 F 78 18 109/65 99 10/04/18 20:17 10/04/18 20:17 10/04/18 20:17 10/04/18 20:17 10/04/18 20:17 Intake & Output 10/03/18 10/04/18 10/05/18 06:59 06:59 06:59 Intake Total 318 1122 Output Total 500 500 Balance -182 622 Weight 100 kg General appearance: PRESENT: no acute distress Eye exam: PRESENT: PERRLA Respiratory exam: PRESENT: clear to auscultation melisa Cardiovascular exam: PRESENT: +S1, +S2 GI/Abdominal exam: PRESENT: soft Neurological exam: PRESENT: alert Results Laboratory Results: 10/03/18 18:20 10/03/18 17:50 10/03/18 10/03/18 10/04/18 17:50 18:20 02:12 WBC 4.8 RBC 4.36 Hgb 12.5 Hct 36.9 MCV 85 MCH 28.6 MCHC 33.8 RDW 14.1 H Plt Count 237 Seg Neutrophils % Not Reportable Lymphocytes % Not Reportable Monocytes % Not Reportable Eosinophils % Not Reportable Basophils % Not Reportable Absolute Neutrophils Not Reportable Absolute Lymphocytes Not Reportable Absolute Monocytes Not Reportable Absolute Eosinophils Not Reportable Absolute Basophils Not Reportable Total Protein Cancelled Albumin Cancelled Lipase Urine Color Urine Appearance Urine pH Ur Specific [place] Urine Protein Urine Glucose (UA) Urine Ketones Urine Blood Urine Nitrite Ur Leukocyte Esterase Urine WBC (Auto) Urine RBC (Auto) Stool Occult Blood 10/04/18 10/04/18 10/04/18 10:31 10:35 13:30 WBC RBC Hgb Hct MCV MCH MCHC RDW Plt Count Seg Neutrophils % Lymphocytes % Monocytes % Eosinophils % Basophils % Absolute Neutrophils Absolute Lymphocytes Absolute Monocytes Absolute Eosinophils Absolute Basophils Total Protein Albumin Lipase 175.3 Urine Color YELLOW Urine Appearance CLEAR Urine pH 6.0 Ur Specific [place] 1.012 Urine Protein NEGATIVE Urine Glucose (UA) NEGATIVE Urine Ketones NEGATIVE Urine Blood SMALL H Urine Nitrite NEGATIVE Ur Leukocyte Esterase LARGE H Urine WBC (Auto) 24 Urine RBC (Auto) 3 Stool Occult Blood NEGATIVE 10/03/18 10/03/18 10/04/18 17:50 17:50 02:12 Creatine Kinase 64 62 CK-MB (CK-2) 0.25 Troponin I < 0.012 10/04/18 10/04/18 10/04/18 02:12 10:31 10:31 Creatine Kinase 72 CK-MB (CK-2) < 0.22 0.26 Troponin I < 0.012 < 0.012 Impressions: Abdomen Ultrasound 10/03/18 00:00 IMPRESSION: 1. Cholelithiasis without evidence of acute cholecystitis. No gallbladder wall thickening. No pericholecystic fluid. No biliary ductal dilation. Negative sonographic Silva's sign. Consider CT or MRI to further evaluate unexplained pain. 2. Redemonstrated hyperechoic region of the lateral left lobe of the liver in keeping with hypodensity seen on prior CT dated 2015 and likely focal fat deposition. Chest X-Ray 10/03/18 21:05 IMPRESSION: 1. No acute pulmonary findings. Assessment & Plan - Diagnosis (1) Unstable angina Is this a current diagnosis for this admission?: Yes Plan: Discontinue IV heparin, nitroglycerin, continue aspirin (2) Hyperproteinemia Is this a current diagnosis for this admission?: Yes Plan: We need to rule out paraproteinemia, protein electrophoresis is ordered (3) Cholelithiases Qualifiers: Cholelithiasis location: gallbladder Cholecystitis presence: without cholecystitis Biliary obstruction: without biliary obstruction Qualified Code(s): K80.20 - Calculus of gallbladder without cholecystitis without obstruction Is this a current diagnosis for this admission?: Yes
[2018-10-05] MEDS: PANTOPRAZOLE SODIUM 40 MG TABLET.DR PO SCH (10:27)
[2018-10-05] MEDS: HYDROCHLOROTHIAZIDE 25 MG TABLET PO SCH (10:27)
[2018-10-05] MEDS: METOPROLOL TARTRATE 25 MG TABLET PO SCH ×2 (10:27→21:15)
[2018-10-05] MEDS: CITALOPRAM HYDROBROMIDE 20 MG TABLET PO SCH (10:27)
[2018-10-05] MEDS: PALIPERIDONE 6 MG TAB.ER.24 PO SCH (10:28)
[2018-10-05] MEDS: ASPIRIN 81 MG TABLET, CHEWABLE PO SCH (10:28)
[2018-10-05] MEDS: AMLODIPINE BESYLATE 10 MG TABLET PO SCH (10:28)
--- NOTE | 2018-10-05 16:42 | PDOC PROGRESS REPORT ---
Subjective Progress Note for:: 10/05/18 Subjective:: Patient was seen by the bedside she presented with chest pain, she is a very poor historian difficult to make a definitive diagnosis on the basis of history taking, the etiology of the chest pain could be from the multiple gallstones or it could be ischemic chest pain. The EKG that was done demonstrated deep symmetrical T with inversion that suggest ischemia. She is presently chest pain-free she was treated on admission with IV heparin and also IV nitroglycerin infusion, acute MD rule out, IV heparin discontinued, patient will require a Cardiolite stress test on Sunday if negative consultation will be requested from surgery for interval cholecystectomy Reason For Visit: CHEST PAIN Physical Exam Vital Signs: Temp Pulse Resp BP Pulse Ox 98.3 F 72 20 106/72 99 10/05/18 11:04 10/05/18 11:04 10/05/18 11:04 10/05/18 11:04 10/05/18 11:04 Intake & Output 10/04/18 10/05/18 10/06/18 06:59 06:59 06:59 Intake Total 318 1509 Output Total 500 1000 Balance -182 509 Weight 100 kg 100.1 kg General appearance: PRESENT: no acute distress Eye exam: PRESENT: PERRLA Respiratory exam: PRESENT: clear to auscultation melisa Cardiovascular exam: PRESENT: +S1, +S2 GI/Abdominal exam: PRESENT: soft Neurological exam: PRESENT: alert Results Laboratory Results: 10/03/18 18:20 10/03/18 17:50 10/03/18 10/03/18 10/04/18 17:50 17:50 02:12 Creatine Kinase 64 62 CK-MB (CK-2) 0.25 Troponin I < 0.012 10/04/18 10/04/18 10/04/18 02:12 10:31 10:31 Creatine Kinase 72 CK-MB (CK-2) < 0.22 0.26 Troponin I < 0.012 < 0.012 Impressions: Abdomen Ultrasound 10/03/18 00:00 IMPRESSION: 1. Cholelithiasis without evidence of acute cholecystitis. No gallbladder wall thickening. No pericholecystic fluid. No biliary ductal dilation. Negative sonographic Silva's sign. Consider CT or MRI to further evaluate unexplained pain. 2. Redemonstrated hyperechoic region of the lateral left lobe of the liver in keeping with hypodensity seen on prior CT dated 2015 and likely focal fat deposi tion. Chest X-Ray 10/03/18 21:05 IMPRESSION: 1. No acute pulmonary findings. Assessment & Plan - Diagnosis (1) Unstable angina Is this a current diagnosis for this admission?: Yes (2) Hyperproteinemia Is this a current diagnosis for this admission?: Yes Plan: We need to rule out paraproteinemia, protein electrophoresis is ordered (3) Cholelithiases Qualifiers: Cholelithiasis location: gallbladder Cholecystitis presence: without cholecystitis Biliary obstruction: without biliary obstruction Qualified Code(s): K80.20 - Calculus of gallbladder without cholecystitis without obstruction Is this a current diagnosis for this admission?: Yes
[2018-10-05] MEDS: ACETAMINOPHEN 325 MG TABLET PO PRN (20:13)
[2018-10-05] MEDS: CLONIDINE HCL 0.1 MG TABLET PO SCH (21:15)
[2018-10-05] MEDS: ATORVASTATIN CALCIUM 80 MG TABLET PO SCH (21:15)
[2018-10-06] MEDS: PANTOPRAZOLE SODIUM 40 MG TABLET.DR PO SCH (10:17)
[2018-10-06] MEDS: PALIPERIDONE 6 MG TAB.ER.24 PO SCH (10:17)
[2018-10-06] MEDS: CITALOPRAM HYDROBROMIDE 20 MG TABLET PO SCH (10:17)
[2018-10-06] MEDS: ASPIRIN 81 MG TABLET, CHEWABLE PO SCH (10:17)
[2018-10-06] MEDS: METOPROLOL TARTRATE 25 MG TABLET PO SCH ×2 (10:17→21:12)
[2018-10-06] MEDS: HYDROCHLOROTHIAZIDE 25 MG TABLET PO SCH (10:17)
[2018-10-06] MEDS: AMLODIPINE BESYLATE 10 MG TABLET PO SCH (10:17)
[2018-10-06] MEDS: BUTALB/ACETAMINOPHEN/CAFFEINE 1 TAB EACH PO PRN ×2 (14:28→22:32)
--- NOTE | 2018-10-06 19:54 | PDOC PROGRESS REPORT ---
Subjective Progress Note for:: 10/06/18 Subjective:: Patient was seen by the bedside she presented with chest pain, she is a very poor historian difficult to make a definitive diagnosis on the basis of history taking, the etiology of the chest pain could be from the multiple gallstones or it could be ischemic chest pain. The EKG that was done demonstrated deep symmetrical T with inversion that suggest ischemia. She is presently chest pain-free she was treated on admission with IV heparin and also IV nitroglycerin infusion, acute AL rule out, IV heparin discontinued, patient will require a Cardiolite stress test on Sunday if negative consultation will be requested from surgery for interval cholecystectomy Reason For Visit: CHEST PAIN Physical Exam Vital Signs: Temp Pulse Resp BP Pulse Ox 97.4 F 76 20 102/64 98 10/06/18 16:38 10/06/18 16:38 10/06/18 16:38 10/06/18 16:38 10/06/18 16:38 Intake & Output 10/05/18 10/06/18 10/07/18 06:59 06:59 06:59 Intake Total 1509 1000 Output Total 1000 Balance 509 1000 Weight 100.1 kg 98.6 kg General appearance: PRESENT: no acute distress Eye exam: PRESENT: PERRLA Respiratory exam: PRESENT: clear to auscultation melisa Cardiovascular exam: PRESENT: +S1, +S2 Neurological exam: PRESENT: alert, CN II-XII grossly intact Results Laboratory Results: 10/03/18 18:20 10/03/18 17:50 10/03/18 10/03/18 10/04/18 17:50 17:50 02:12 Creatine Kinase 64 62 CK-MB (CK-2) 0.25 Troponin I < 0.012 10/04/18 10/04/18 10/04/18 02:12 10:31 10:31 Creatine Kinase 72 CK-MB (CK-2) < 0.22 0.26 Troponin I < 0.012 < 0.012 Impressions: Abdomen Ultrasound 10/03/18 00:00 IMPRESSION: 1. Cholelithiasis without evidence of acute cholecystitis. No gallbladder wall thickening. No pericholecystic fluid. No biliary ductal dilation. Negative sonographic Silva's sign. Consider CT or MRI to further evaluate unexplained pain. 2. Redemonstrated hyperechoic region of the lateral left lobe of the liver in keeping with hypodensity seen on prior CT dated 2015 and likely focal fat deposition. Chest X-Ray 10/03/18 21:05 IMPRESSION: 1. No acute pulmonary findings. Assessment & Plan - Diagnosis (1) Unstable angina Is this a current diagnosis for this admission?: Yes (2) Hyperproteinemia Is this a current diagnosis for this admission?: Yes (3) Cholelithiases Qualifiers: Cholelithiasis location: gallbladder Cholecystitis presence: without cholecystitis Biliary obstruction: without biliary obstruction Qualified Code(s): K80.20 - Calculus of gallbladder without cholecystitis without obstruction Is this a current diagnosis for this admission?: Yes
[2018-10-06] MEDS: ATORVASTATIN CALCIUM 80 MG TABLET PO SCH (21:12)
[2018-10-06] MEDS: CLONIDINE HCL 0.1 MG TABLET PO SCH (21:12)
[2018-10-06 22:00] LABS: ANION GAP 10 (5-19); BLOOD UREA NITROGEN 18 mg/dL (7-20); CALCIUM 9.3 mg/dL (8.4-10.2); CARBON DIOXIDE 26 mmol/L (22-30); CHLORIDE 98 mmol/L (98-107); GLUCOSE 109 mg/dL (75-110); SODIUM 133.8 mmol/L (137-145)
[2018-10-06] MEDS ORDERED: POTASSIUM CHLORIDE 10 MEQ CAPSULE.ER PO ONE (23:00)
[2018-10-07 05:53] LABS: HEMOGLOBIN 12.6 g/dL (12.0-15.5); MEAN CORPUSCULAR HEMOGLOBIN 28.9 pg (27.0-33.4); MEAN CORPUSCULAR HGB CONC 34.1 g/dL (32.0-36.0); MEAN CORPUSCULAR VOLUME 85 fl (80-97); PLATELET COUNT 233 10^3/uL (150-450); RED BLOOD COUNT 4.37 10^6/uL (3.72-5.28); RED CELL DISTRIBUTION WIDTH 13.8 % (11.5-14.0); WHITE BLOOD COUNT 3.8 10^3/uL (4.0-10.5)
[2018-10-07 06:12] LABS: ANION GAP 10 (5-19); BLOOD UREA NITROGEN 17 mg/dL (7-20); CALCIUM 9.6 mg/dL (8.4-10.2); CARBON DIOXIDE 26 mmol/L (22-30); CHLORIDE 100 mmol/L (98-107); GLUCOSE 100 mg/dL (75-110); POTASSIUM 3.8 mmol/L (3.6-5.0)
[2018-10-07] MEDS: AMLODIPINE BESYLATE 10 MG TABLET PO SCH (11:21)
[2018-10-07] MEDS: HYDROCHLOROTHIAZIDE 25 MG TABLET PO SCH (11:21)
[2018-10-07] MEDS: PANTOPRAZOLE SODIUM 40 MG TABLET.DR PO SCH (11:21)
[2018-10-07] MEDS: PALIPERIDONE 6 MG TAB.ER.24 PO SCH (11:21)
[2018-10-07] MEDS: METOPROLOL TARTRATE 25 MG TABLET PO SCH ×2 (11:21→22:59)
[2018-10-07] MEDS: ASPIRIN 81 MG TABLET, CHEWABLE PO SCH (11:21)
[2018-10-07] MEDS: CITALOPRAM HYDROBROMIDE 20 MG TABLET PO SCH (11:21)
[2018-10-07] MEDS: ACETAMINOPHEN 325 MG TABLET PO PRN (13:20)
[2018-10-07] MEDS ORDERED: REGADENOSON INJ 0.4 MG/5 ML DISP.SYRIN IV ONE (15:17)
[2018-10-07 15:37] LABS: ALBUMIN UR 25.2 % (.); ALPHA-1-GLOBULIN URINE 6.3 % (.); ALPHA-2-GLOBULIN URINE 15.8 % (.); GAMMA GLOBULIN URINE 28.1 % (.); M-SPIKE % UR Not Observed % (Not Observ); PROTEIN TOTAL URINE 5.4 mg/dL (Not Estab.)
--- NOTE | 2018-10-07 17:03 | Physician Advisory Note ---
Physician Advisor ProgressNote .: Pursuant to the plan for [facility], I have reviewed the medical record for this patient. Physician Advisor Statement: 58yo SHAYNA pt w/HTN, asthma, bipolar dep, in w/CP assoc'd w/precordial T inversions, felt to be [place], high suspicion for ischemic CAD. Tx'd initially w/IV heparin/NTG, + ASA, high dose Lipitor. Hyponatremia present, but not stated to be acute - unclear whether felt to be signif or not significant. Mult gallstones w/out definite evidence of inflammation. Total serum protein very high - attg ordered UPEP looking for paraproteinemia. Also ordered stress testing. Day 2: CE's neg, restarted usual BP meds, added metoprolol. Awaiting results UPEP, & awaiting stress testing. That PM, attg ordered EKG due to rhythm change. EKG showed multifocal PACs, cont'd T inversions ant-lat leads. Day 3 (10/05, [facility]): Attg re-ordered stress testing, documented this was urgent & needed to be done before d/c. Day 4 (10/06, [place]): Still waiting for stress testing, results UPEP (send-out lab). That PM, nurse documented PAC's more frequent. Attg ordered labs. K was 3.0. Ordered KCl 40mEq & repeat labs in AM. Day 5: stress testing, hem ck ordered (reason?) Please document: 1. Do you need results of UPEP before pt will be safe for d/c? Why/why not? 2. Has there been a clinical/patient reason pt couldn't have stress test on 10/04, or 10/05, or 10/06? Or was this due to facility logistical issues on Sunday & lack of stress testing capability on weekend? 3. The specific acute dysrhythmia on 10/06 PM, w/cause & assoc'd concerns/tx/re- eval [To explain medical necessity] 4. Whether the hyponatremia is acute or chronic, & signif (i.e. you wanted to re-ck it or do something different due to it) or insignif. Status/medical necessity: All time spent just waiting for stress testing that a pt was ready for do not count r.e. status. However, in this case, pt developed "increasing PACs" per nurse on 4/7PM, required eval (BMP) & tx (KCL) & f/u (repeat labs in AM). Therefore, pt clearly had medical need for further care that prolonged her stay. Appropriate for change to Inpatient status after all. Thanks, CK
--- NOTE | 2018-10-07 21:08 | PDOC CONSULTATION ---
Consultation Consult Date: 10/07/18 Consult reason:: chest pain History of Present Illness Admission Date/PCP: 10/03/18 15:29 SNEHAL VERA MD History of Present Illness: PANCHO ARCE is a 58 year old female admitted for chest pain and EKG changes. Extensive cardiac workup was negative including thallium scan. An US of the gallbladder was done and it was significant for cholelithiasis only, uncomplicated. During the interview, she reported to have suffered from GERD in the past with relieve after the is of oral PPI. Currently, she is pain free. Past Medical History Cardiac Medical History: Reports: Hypertension Denies: Atrial Fibrillation, Congestive Heart Failure, Coronary Artery Disease, Myocardial Infarction, Hyperlipidema, Peripheral Vascular Disease, He art Murmur Pulmonary Medical History: Reports: Asthma - INHALER Neurological Medical History: Reports: Migraine, Seizures - LAST WHEN 15 YRS OLD,CAUSE UNK GI Medical History: Reports: Gastroesophageal Reflux Disease Denies: Crohn's Disease, Hepatitis, Hiatal Hernia Musculoskeltal Medical History: Reports: Arthritis Denies: Fibromyalgia Psychiatric Medical History: Reports: Bipolar Disorder, Depression Denies: Post Traumatic Stress Disorder Hematology: Denies: Anemia, Sickle Cell Disease Past Surgical History Past Surgical History: Reports: Appendectomy - 1993, "emergency", Hysterectomy, Orthopedic Surgery - right patella replacement, Other - Cataracts Denies: Amputation, Section, Cholecystectomy, Colostomy, Coronary Artery Bypass Graft, Gastric Bypass Surgery, Herniorrhaphy, Mastectomy, Pacemaker, Tonsillectomy, Tubal Ligation Social History Smoking Status: Current Every Day Smoker Cigarettes Packs Per Day: 0.5 Number of Years Smokin Frequency of Alcohol Use: Occasional Hx Recreational Drug Use: No Drugs: None Hx Prescription Drug Abuse: Yes Family History Family History: Arthritis, CAD, CVA, DM, Hyperlipidemia, Hypertension. denies: COPD, Malignancy, Thyroid Disfunction Parental Family History Reviewed: No Children Family History Reviewed: No Sibling(s) Family History Reviewed.: No Medication/Allergy Home Medications: Amlodipine Besylate [Norvasc 10 mg Tablet] 10 mg PO DAILY 10/04/18 Butalb/Acetaminophen/Caffeine [Fioricet (50-325-40 mg) Tablet] 1 tab PO Q4HP PRN 10/04/18 Citalopram Hydrobromide [Celexa 20 mg Tablet] 20 mg PO DAILY 10/04/18 Clonidine HCl [Catapres 0.1 mg Tablet] 0.1 mg PO QHS 10/04/18 Hydrochlorothiazide [Hydrodiuril 25 mg Tablet] 25 mg PO DAILY 10/04/18 Omeprazole 40 mg PO DAILY 10/04/18 Paliperidone [Invega 6 mg Tab.er] 6 mg PO DAILY 10/04/18 Allergies/Adverse Reactions: No Known Allergies Allergy (Verified 07/01/17 13:43) Physical Exam Vital Signs: Temp Pulse Resp BP Pulse Ox 98.0 F 74 16 105/62 98 10/07/18 15:42 10/07/18 15:42 10/07/18 15:42 10/07/18 16:00 10/07/18 15:42 Intake & Output 10/06/18 10/07/18 10/08/18 06:59 06:59 06:59 Intake Total 1000 1074 355 Balance 1000 1074 355 Weight 98.6 kg 99.3 kg General appearance: PRESENT: no acute distress Head exam: PRESENT: atraumatic Eye exam: PRESENT: EOMI Mouth exam: PRESENT: moist, neck supple Neck exam: PRESENT: full ROM Respiratory exam: PRESENT: clear to auscultation melisa Cardiovascular exam: PRESENT: RRR GI/Abdominal exam: PRESENT: Silva's sign - negative, negative palpation of the RUQ or epigastrium, normal bowel sounds, soft Neurological exam: PRESENT: alert, awake, oriented to person, oriented to situation Psychiatric exam: PRESENT: appropriate affect Skin exam: PRESENT: warm Results Laboratory Results: 10/07/18 05:07 10/07/18 05:07 10/06/18 10/07/18 10/07/18 21:25 05:07 05:07 WBC 3.8 L RBC 4.37 Hgb 12.6 Hct 37.0 MCV 85 MCH 28.9 MCHC 34.1 RDW 13.8 Plt Count 233 Sodium 133.8 L 136.0 L Potassium 3.0 L* 3.8 Chloride 98 100 Carbon Dioxide 26 26 Anion Gap 10 10 BUN 18 17 Creatinine 1.01 0.77 Est GFR ( Amer) > 60 > 60 Est GFR (Non-Af Amer) 56 L > 60 Glucose 109 100 Calcium 9.3 9.6 10/03/18 10/03/18 10/04/18 17:50 17:50 02:12 Creatine Kinase 64 62 CK-MB (CK-2) 0.25 Troponin I < 0.012 10/04/18 10/04/18 10/04/18 02:12 10:31 10:31 Creatine Kinase 72 CK-MB (CK-2) < 0.22 0.26 Troponin I < 0.012 < 0.012 Impressions: Abdomen Ultrasound 10/03/18 00:00 IMPRESSION: 1. Cholelithiasis without evidence of acute cholecystitis. No gallbladder wall thickening. No pericholecystic fluid. No biliary ductal dilation. Negative sonographic Silva's sign. Consider CT or MRI to further evaluate unexplained pain. 2. Redemonstrated hyperechoic region of the lateral left lobe of the liver in keeping with hypodensity seen on prior CT dated 2015 and likely focal fat deposition. Chest X-Ray 10/03/18 21:05 IMPRESSION: 1. No acute pulmonary findings. Assessment & Plan - Diagnosis (1) Chest pain Qualifiers: Chest pain type: precordial pain Qualified Code(s): R07.2 - Precordial pain Is this a current diagnosis for this admission?: Yes (2) GERD (gastroesophageal reflux disease) Qualifiers: Esophagitis presence: esophagitis presence not specified Qualified Code(s): K21.9 - Gastro-esophageal reflux disease without esophagitis Is this a current diagnosis for this admission?: Yes - Plan Summary Plan Summary: A/ 58 F with hx of chest pain, admitted for cardiac workup, negative US of the gallbladder shows cholelithiasis and is negative for Silva's sign or other gallbladder complications Blood work WNL P/ EGD with biopsy tomorrow Procedure, risks, benefits, complications were discussed with the patient, her questions were answered, and she decided to proceed. The patient will be able to be discharged to home as per Dr. SARAH after the procedure She will need an esophagogram as outpatient
--- NOTE | 2018-10-07 22:00 | PDOC PROGRESS REPORT ---
Subjective Progress Note for:: 10/07/18 Subjective:: Patient was admitted for the management of chest pain she underwent Cardiolite Lexiscan stress test today negative for acute reversibility, she also has multiple gallstones, consultation was obtained from surgery for interval cholecystectomy. She was seen by the surgeon, the surgeon felt symptom is probably from acid reflux, she is scheduled for upper GI endoscopy in a.m. Reason For Visit: CHEST PAIN Physical Exam Vital Signs: Temp Pulse Resp BP Pulse Ox 97.7 F 73 20 104/65 99 10/07/18 19:34 10/07/18 19:34 10/07/18 19:34 10/07/18 19:34 10/07/18 19:34 Intake & Output 10/06/18 10/07/18 10/08/18 06:59 06:59 06:59 Intake Total 1000 1074 355 Balance 1000 1074 355 Weight 98.6 kg 99.3 kg General appearance: PRESENT: no acute distress Eye exam: PRESENT: PERRLA Respiratory exam: PRESENT: clear to auscultation melisa Cardiovascular exam: PRESENT: +S1, +S2 GI/Abdominal exam: PRESENT: soft Neurological exam: PRESENT: alert Results Laboratory Results: 10/07/18 05:07 10/07/18 05:07 10/06/18 10/07/18 10/07/18 21:25 05:07 05:07 WBC 3.8 L RBC 4.37 Hgb 12.6 Hct 37.0 MCV 85 MCH 28.9 MCHC 34.1 RDW 13.8 Plt Count 233 Sodium 133.8 L 136.0 L Potassium 3.0 L* 3.8 Chloride 98 100 Carbon Dioxide 26 26 Anion Gap 10 10 BUN 18 17 Creatinine 1.01 0.77 Est GFR ( Amer) > 60 > 60 Est GFR (Non-Af Amer) 56 L > 60 Glucose 109 100 Calcium 9.3 9.6 10/03/18 10/03/18 10/04/18 17:50 17:50 02:12 Creatine Kinase 64 62 CK-MB (CK-2) 0.25 Troponin I < 0.012 10/04/18 10/04/18 10/04/18 02:12 10:31 10:31 Creatine Kinase 72 CK-MB (CK-2) < 0.22 0.26 Troponin I < 0.012 < 0.012 Impressions: Abdomen Ultrasound 10/03/18 00:00 IMPRESSION: 1. Cholelithiasis without evidence of acute cholecystitis. No gallbladder wall thickening. No pericholecystic fluid. No biliary ductal dilation. Negative sonographic Silva's sign. Consider CT or MRI to further evaluate unexplained pain. 2. Redemonstrated hyperechoic region of the lateral left lobe of the liver in keeping with hypodensity seen on prior CT dated 2015 and likely focal fat deposition. Chest X-Ray 10/03/18 21:05 IMPRESSION: 1. No acute pulmonary findings. Assessment & Plan - Diagnosis (1) Unstable angina Is this a current diagnosis for this admission?: Yes Plan: Resolved (2) Hyperproteinemia Is this a current diagnosis for this admission?: Yes (3) Cholelithiases Qualifiers: Cholelithiasis location: gallbladder Cholecystitis presence: without cholecystitis Biliary obstruction: without biliary obstruction Qualified Code(s): K80.20 - Calculus of gallbladder without cholecystitis without obstruction Is this a current diagnosis for this admission?: Yes Plan: Seen by the surgeon scheduled for upper endoscopy in the morning
--- NOTE | 2018-10-07 22:39 | DRAGON STRESS TEST REPORT ---
Intravenous Lexiscan Cardiolite stress test using single photon emmision computerized tomography. Date of procedure: 10/07/2018. Ordering Provider: Dr. Sanders. Patient's status: Inpatient. Indication: Chest pain. Coronary risk factors: Age, hypertension, dyslipidemia, tobacco abuse disorder, and family history of coronary artery disease. Resting EKG: Sinus Rhythm. T inversion in anterior leads. Stress EKG: No changes of ischemia. Reason for termination: Protocol. Conclusions: Normal EKG and hemodynamic response to IV Lexiscan. Nuclear data: At rest the patient was given 10.78 millicuries of technetium 99m sestamibi injected intravenously. As per protocol rest non gated SPECT images were obtained. Subsequently the patient was given intravenous Lexiscan at a dose of 0.4 mg in 5 mL intravenously, followed by flush with normal saline. Subsequently the stress dose of 32.5 millicuries of technetium 99m sestamibi was injected intravenously. As per protocol stress gated images were obtained. Nuclear interpretation: Review of images showed that this is a poor quality study with there being liver contamination artifact and bowel contamination artifact of the inferior wall and breast attenuation artifact of the anterior wall. There is a small perfusion defect involving the left ventricle apex in both the rest and stress images, with normal motion contraction and thickening by gated study. Hence this is deemed to be a soft tissue attenuation artifact. The rest of the segments of the myocardium had normal perfusion at rest, and normal perfusion post stress with IV Lexiscan. All segments of the myocardium had normal motion, contraction, and thickening by gated study. T. I D. ratio was normal at 1.11. There is no transient ischemic dilatation of the left ventricle. Computer read rest, and stress left ventricular ejection fraction were 61 %, and 55 %, respectively. Visually both the stress and rest ejection fractions were normal, and greater than 60 %. Conclusion: 1. There is no scintigraphic evidence of Lexiscan induced myocardial ischemia. 2. There is no scintigraphic evidence of myocardial infarction/scar. Recommendations: 1. Correlate clinically 2. Aggressive risk factor modification, and treating the underlying co- morbidities. [facility]
[2018-10-07] MEDS: CLONIDINE HCL 0.1 MG TABLET PO SCH (22:59)
[2018-10-07] MEDS: ATORVASTATIN CALCIUM 80 MG TABLET PO SCH (22:59)
[2018-10-07] MEDS: NORMAL SALINE 1000 ML 1,000 ML IV PRN (23:07)
--- NOTE | 2018-10-08 07:39 | PDOC PROGRESS REPORT ---
Subjective Progress Note for:: 10/08/18 Subjective:: There is a 58-year-old female with complaints of chest pain. Patient also reports reflux type symptoms. Her chest pain is worse after eating and laying flat. She denies chest pain at this time, however she has not eaten anything this morning. The patient denies headache, nausea, vomiting, shortness of breath, fevers, chills, malaise, fatigue. Reason For Visit: CHEST PAIN Physical Exam Vital Signs: Temp Pulse Resp BP Pulse Ox 98.0 F 67 20 106/58 L 96 10/08/18 03:44 10/08/18 03:44 10/08/18 03:44 10/08/18 03:44 10/08/18 03:44 Intake & Output 10/07/18 10/08/18 10/09/18 06:59 06:59 06:59 Intake Total 1074 355 Balance 1074 355 Weight 99.3 kg 100.5 kg General appearance: PRESENT: no acute distress, cooperative Head exam: PRESENT: atraumatic, normocephalic Eye exam: PRESENT: EOMI, PERRLA. ABSENT: scleral icterus Neck exam: ABSENT: meningismus, tenderness, thyromegaly, tracheal deviation Cardiovascular exam: PRESENT: RRR Pulses: PRESENT: normal radial pulses GI/Abdominal exam: PRESENT: soft. ABSENT: distended, tenderness Rectal exam: PRESENT: deferred Extremities exam: ABSENT: clubbing Musculoskeletal exam: ABSENT: deformity Neurological exam: PRESENT: alert, awake, oriented to person, oriented to place, oriented to time, oriented to situation, CN II-XII grossly intact Psychiatric exam: ABSENT: agitated, anxious, depressed Focused psych exam: ABSENT: delusional Skin exam: ABSENT: cyanosis, erythema, jaundice Results Laboratory Results: 10/07/18 05:07 10/07/18 05:07 10/03/18 10/03/18 10/04/18 17:50 17:50 02:12 Creatine Kinase 64 62 CK-MB (CK-2) 0.25 Troponin I < 0.012 10/04/18 10/04/18 10/04/18 02:12 10:31 10:31 Creatine Kinase 72 CK-MB (CK-2) < 0.22 0.26 Troponin I < 0.012 < 0.012 Impressions: Abdomen Ultrasound 10/03/18 00:00 IMPRESSION: 1. Cholelithiasis without evidence of acute cholecystitis. No gallbladder wall thickening. No pericholecystic fluid. No biliary ductal dilation. Negative sonographic Silva's sign. Consider CT or MRI to further evaluate unexplained pain. 2. Redemonstrated hyperechoic region of the lateral left lobe of the liver in keeping with hypodensity seen on prior CT dated 2015 and likely focal fat dep osition. Chest X-Ray 10/03/18 21:05 IMPRESSION: 1. No acute pulmonary findings. Assessment & Plan - Diagnosis (1) Chest pain Qualifiers: Chest pain type: precordial pain Qualified Code(s): R07.2 - Precordial pain Is this a current diagnosis for this admission?: Yes (2) Cholelithiases Qualifiers: Cholelithiasis location: gallbladder Cholecystitis presence: without cholecystitis Biliary obstruction: without biliary obstruction Qualified Code(s): K80.20 - Calculus of gallbladder without cholecystitis without obstruction Is this a current diagnosis for this admission?: Yes (3) GERD (gastroesophageal reflux disease) Qualifiers: Esophagitis presence: esophagitis presence not specified Qualified Code(s): K21.9 - Gastro-esophageal reflux disease without esophagitis Is this a current diagnosis for this admission?: Yes - Plan Summary Plan Summary: This a 58-year-old female with chest pain. A cardiac source has been effe ctively ruled out. The patient has gallstones, and symptoms consistent with reflux. Plan for EGD today to image her esophagus and gastric mucosa. If this is completely normal, her symptoms may be related to cholelithiasis. Risks/benefits discussed, informed consent obtained, and all questions answered. We will reassess symptoms after EGD. Patient may require cholecystectomy on this hospital admission.
[2018-10-08] MEDS: NORMAL SALINE 1000 ML 1,000 ML IV PRN (08:36)
[2018-10-08] MEDS ORDERED: PROPOFOL INJ 200 MG/20 ML VIAL IV ONE (11:07)
[2018-10-08] MEDS ORDERED: ONDANSETRON HCL INJ/PF 4 MG/2 ML SDV IV PRN (11:10)
--- NOTE | 2018-10-08 12:03 | Operative Report ---
Nonrecallable Operative Report DATE OF SURGERY: 10/08/18 PREOPERATIVE DIAGNOSIS: Abdominal pain, chest pain POSTOPERATIVE DIAGNOSIS: 1. Severe gastritis with shallow gastric ulcers. 2. Duodenitis. 3. Reflux esophagitis OPERATION: EGD with biopsy SURGEON: SARITHA HEBERT ANESTHESIA: LMAC TISSUE REMOVED OR ALTERED: 1. Antrum biopsy. 2. Duodenal bulb. 3. Distal esophagus COMPLICATIONS: None apparent ESTIMATED BLOOD LOSS: Minimal PROCEDURE: Procedure in detail: After informed consent was obtained, the patient was brought to the operating room and laid in the left lateral decubitus position. The endoscope was passed down the oropharynx, down the esophagus, into the stomach. The stomach was insufflated with air. Immediately there was noted to be a dense inflammatory reaction with shallow gastric ulcerations in the antrum. The scope was pushed through the first portion of the duodenum and into the second portion of the duodenum. The second portion of the duodenum appeared normal. The scope was pulled back into the duodenal bulb, where duodenitis was identified. Biopsy was taken at the most affected portion of the duodenum. The scope was withdrawn back into the antrum. Several biopsies were performed in the antrum, in and around the gastric ulcers. A retroflexion maneuver was then performed in the stomach. No large hiatal hernias could be identified. The scope was straightened, and pulled into the distal esophagus. A large amount of ulceration was found in the distal esophagus. Biopsy was taken in the distal esophagus, to rule out Mann's metaplasia. The scope was then withdrawn up the remainder of the esophagus. The remainder of the esophagus was smooth in contour without masses, lesions, ulcerations, or other abnormalities. Scope was pulled out the oropharynx, and the procedure was concluded. All sponge, instrument, and needle counts were correct x2. Condition: Stable.
[2018-10-08] MEDS: METOPROLOL TARTRATE 25 MG TABLET PO SCH (12:42)
[2018-10-08] MEDS: HYDROCHLOROTHIAZIDE 25 MG TABLET PO SCH (12:42)
[2018-10-08] MEDS: AMLODIPINE BESYLATE 10 MG TABLET PO SCH (12:42)
[2018-10-08] MEDS: ASPIRIN 81 MG TABLET, CHEWABLE PO SCH (12:42)
[2018-10-08] MEDS: PANTOPRAZOLE SODIUM 40 MG TABLET.DR PO SCH (12:42)
[2018-10-08] MEDS: CITALOPRAM HYDROBROMIDE 20 MG TABLET PO SCH (12:42)
[2018-10-08] MEDS: PALIPERIDONE 6 MG TAB.ER.24 PO SCH (12:43)
--- NOTE | 2018-10-08 12:46 | PDOC DISCHARGE SUMMARY ---
General - Admit/Disc Date/PCP Admission Date/Primary Care Provider: 10/03/18 15:29 SNEHAL VERA MD Discharge Date: 10/08/18 - Discharge Diagnosis (1) Gastric ulcer Is this a current diagnosis for this admission?: Yes (2) Unstable angina Is this a current diagnosis for this admission?: Yes (3) Hyperproteinemia Is this a current diagnosis for this admission?: Yes (4) Cholelithiases Is this a current diagnosis for this admission?: Yes - Additional Information Resuscitation Status: Full Code Home Medications: Amlodipine Besylate [Norvasc 10 mg Tablet] 10 mg PO DAILY 10/04/18 Butalb/Acetaminophen/Caffeine [Fioricet (50-325-40 mg) Tablet] 1 tab PO Q4HP PRN 10/04/18 Citalopram Hydrobromide [Celexa 20 mg Tablet] 20 mg PO DAILY 10/04/18 Clonidine HCl [Catapres 0.1 mg Tablet] 0.1 mg PO QHS 10/04/18 Hydrochlorothiazide [Hydrodiuril 25 mg Tablet] 25 mg PO DAILY 10/04/18 Omeprazole 40 mg PO DAILY 10/04/18 Paliperidone [Invega 6 mg Tab.er] 6 mg PO DAILY 10/04/18 Atorvastatin Calcium [Lipitor 80 mg Tablet] 80 mg PO QHS tablet 10/08/18 Metoprolol Tartrate [Lopressor 25 mg Tablet] 25 mg PO Q12H tablet 10/08/18 History of Present Illness History of Present Illness: PANCHO ARCE is a 58 year old female,She came to the office today for evaluation of chest pain, the chest pain is retrosternal, described as tightness, in the office a 12-lead EKG was done, it was sinus rhythm, There was inverted T wave in precordial leads. Patient is a poor historian, she stated in the office that the chest pain felt like she was bloated like gas she did not relate the chest pain to exertion or emotion that would suggest ischemic chest pain at the same time she did not relate the chest pain to food intake that was in the office, I did a 12-lead EKG in the office that was sinus rhythm with inverted T waves in precordial leads. When she arrived into the hospital she told the RN nurse that the pain was pressure-like and intermittent the twelve- lead EKG that was done was sinus rhythm but now demonstrated deep symmetrical inversion of T waves in precordial leads, ultrasound of the gall bladder was done as well,it showed multiple gallstones Hospital Course Hospital Course: Patient was admitted for the management of epigastric pain, the differential diagnosis includes unstable angina, cholelithiasis, gastric ulcer,. She was initially treated empirically for unstable angina, the twelve-lead EKG that was done showed symmetrical inverted T waves in precordial leads, she rule out for CA with serial cardiac enzymes, she was chest pain-free. Consultation was requested from surgery because of the cholelithiasis that was found on ultrasound, she also underwent EGD upper endoscopy today that showed gastric ulc ers. She also had Cardiolite Lexiscan stress test that was negative for any acute reversibility The plan is for patient to have outpatient interval cholecystectomy Physical Exam Vital Signs: Temp Pulse Resp BP Pulse Ox 97.7 F 63 16 116/92 H 99 10/08/18 07:40 10/08/18 07:40 10/08/18 07:40 10/08/18 07:40 10/08/18 07:40 Intake & Output 10/07/18 10/08/18 10/09/18 06:59 06:59 06:59 Intake Total 1074 355 948 Balance 1074 355 948 Weight 99.3 kg 100.5 kg General appearance: PRESENT: no acute distress Head exam: PRESENT: atraumatic, normocephalic Eye exam: PRESENT: conjunctiva pink, EOMI, PERRLA Ear exam: PRESENT: normal external ear exam Mouth exam: PRESENT: moist, tongue midline Neck exam: PRESENT: full ROM Respiratory exam: PRESENT: clear to auscultation melisa Cardiovascular exam: PRESENT: RRR, +S1, +S2 Pulses: PRESENT: normal dorsalis pedis pul, +2 pedal pulses bilateral Vascular exam: PRESENT: normal capillary refill GI/Abdominal exam: PRESENT: normal bowel sounds, soft Rectal exam: PRESENT: deferred Neurological exam: PRESENT: alert, CN II-XII grossly intact Psychiatric exam: PRESENT: appropriate affect, normal mood Skin exam: PRESENT: dry, intact, warm Results Laboratory Results: 10/07/18 05:07 10/07/18 05:07 10/03/18 10/03/18 10/04/18 17:50 17:50 02:12 Creatine Kinase 64 62 CK-MB (CK-2) 0.25 Troponin I < 0.012 10/04/18 10/04/18 10/04/18 02:12 10:31 10:31 Creatine Kinase 72 CK-MB (CK-2) < 0.22 0.26 Troponin I < 0.012 < 0.012 Impressions: Abdomen Ultrasound 10/03/18 00:00 IMPRESSION: 1. Cholelithiasis without evidence of acute cholecystitis. No gallbladder wall thickening. No pericholecystic fluid. No biliary ductal dilation. Negative sonographic Silva's sign. Consider CT or MRI to further evaluate unexplained pain. 2. Redemonstrated hyperechoic region of the lateral left lobe of the liver in keeping with hypodensity seen on prior CT dated 2015 and likely focal fat d eposition. Chest X-Ray 10/03/18 21:05 IMPRESSION: 1. No acute pulmonary findings. Qualifiers - * PATIENT BEING DISCHARGED WITH ANY OF THE FOLLOWING DIAGNOSIS: No
[2018-10-08] MEDS ORDERED: SUCRALFATE 1 GM TABLET PO SCH (16:00)
[2018-10-08 16:04] VITALS: BP 98/55
[2018-10-08 16:38] LABS: A/G RATIO. 0.7 (0.7-1.7); ALBUMIN 3 3.3 g/dL (2.9-4.4); ALPHA-1-GLOBULIN 0.3 g/dL (0.0-0.4); BETA GLOBULIN 1.1 g/dL (0.7-1.3); GAMMA GLOBULINS 2.7 g/dL (0.4-1.8); IMMUNOGLOBULIN A 543 mg/dL (87-352); IMMUNOGLOBULIN G 2855 mg/dL (700-1600); IMMUNOGLOBULIN M 82 mg/dL (26-217); MONOCLONAL-SPIKE Not Observed g/dL (Not Observ); PROTEIN TOTAL SERUM 8.4 g/dL (6.0-8.5)
[2018-10-08] MEDS ORDERED: FAMOTIDINE 20 MG TABLET PO SCH (22:00)
== END 2018-10-08 14:43 | disposition home or self-care (01) ==
LOC: 3S 15:29 → UNDOADMIN 15:29 → INTOOBSV 15:29
PROVIDERS: ADMIT Internal Medicine; ATTEND Internal Medicine
PROC: 0DB68ZX Excision of Stomach, Via Natural or Artificial Opening Endoscopic, Diagnostic (ICD-10-PCS; 2018-10-08)
PROC: 0DB38ZX Excision of Lower Esophagus, Via Natural or Artificial Opening Endoscopic, Diagnostic (ICD-10-PCS; 2018-10-08)
PROC: 0DB98ZX Excision of Duodenum, Via Natural or Artificial Opening Endoscopic, Diagnostic (ICD-10-PCS; principal; 2018-10-08 11:00)
DX: K25.9 Gastric ulcer, unspecified as acute or chronic, without hemorrhage or perforation (principal); I20.0 Unstable angina; E88.09 Other disorders of plasma-protein metabolism, not elsewhere classified; K80.20 Calculus of gallbladder without cholecystitis without obstruction; K29.80 Duodenitis without bleeding; K22.10 Ulcer of esophagus without bleeding; K31.9 Disease of stomach and duodenum, unspecified; K21.0 Gastro-esophageal reflux disease with esophagitis; I10 Essential (primary) hypertension; F17.200 Nicotine dependence, unspecified, uncomplicated; R94.31 Abnormal electrocardiogram [ECG] [EKG]; Z79.899 Other long term (current) drug therapy; Z90.49 Acquired absence of other specified parts of digestive tract; Z90.710 Acquired absence of both cervix and uterus; Z82.49 Family history of ischemic heart disease and other diseases of the circulatory system
CPT/HCPCS: 43239; 36415 ×5; 84439; 82553 ×2; 82550 ×2; 83690; 84156; 84443; 82570; 85025; 85027; 85610; 85730 ×3; 82272; 80048 ×2; 80053; 81001 ×2; 84484 ×2; 86320; 84166; 88342 ×2; 88305 ×2; 93017; 71045; 76705; 78452; 93005 ×2; 93010 ×2; G0378 ×5; G0379; A9500; J2785; J3490 ×40; J1644 ×2; J7030 ×2; J2704; Q9969; 731

== ENCOUNTER 2018-12-11 11:02 | Day surgery (SDC) | payer MEDICAID ==
[2018-12-04 10:59] LABS: HEMATOCRIT 39.3 % (36.0-47.0); HEMOGLOBIN 13.2 g/dL (12.0-15.5); MEAN CORPUSCULAR HEMOGLOBIN 28.5 pg (27.0-33.4); MEAN CORPUSCULAR HGB CONC 33.5 g/dL (32.0-36.0); MEAN CORPUSCULAR VOLUME 85 fl (80-97); PLATELET COUNT 232 10^3/uL (150-450); RED BLOOD COUNT 4.62 10^6/uL (3.72-5.28); WHITE BLOOD COUNT 5.5 10^3/uL (4.0-10.5)
[2018-12-04 11:36] LABS: ALANINE AMINOTRANSFERASE 10 U/L (9-52); ALBUMIN 4.2 g/dL (3.5-5.0); ALKALINE PHOSPHATASE 119 U/L (38-126); AMYLASE 70 U/L (30-110); ANION GAP 14 (5-19); ASPARTATE AMINO TRANSFERASE 16 U/L (14-36); BILIRUBIN,DIRECT 0.3 mg/dL (0.0-0.4); BILIRUBIN,TOTAL 0.5 mg/dL (0.2-1.3); BLOOD UREA NITROGEN 18 mg/dL (7-20); CALCIUM 9.5 mg/dL (8.4-10.2); CARBON DIOXIDE 27 mmol/L (22-30); CHLORIDE 101 mmol/L (98-107); GLUCOSE 96 mg/dL (75-110); POTASSIUM 3.4 mmol/L (3.6-5.0); SODIUM 141.6 mmol/L (137-145); TOTAL PROTEIN 9.3 g/dL (6.3-8.2)
[~2018-12-11 11:02] MED LIST changes: +ACETAMINOPHEN 325 MG TABLET PO PRN; +CEFAZOLIN 1 GM/D5W RTU 1 GM/50 ML RTUPB IV PRN; -KETOROLAC TROMETHAMINE 0.45% 4 DROP/0.4 ML DROPERETTE OD PRN; +LACTATED RINGERS 1000 ML IV PRN; +LIDOCAINE 0.5% INJ-PF (5 MG/ML) 50 ML SDV SUBCUT PRN
[2018-12-11] MEDS ORDERED: CEFAZOLIN 1 GM/D5W RTU 1 GM/50 ML RTUPB IV ONE (12:25)
[2018-12-11] MEDS ORDERED: BUPIVACAINE HCL 0.25 % INJ/PF (2.5 MG/1 ML) 30 ML VIAL ONE (13:57)
[2018-12-11] MEDS ORDERED: ROCURONIUM BROMIDE INJ 50 MG/5 ML VIAL IV ONE (14:17)
[2018-12-11] MEDS ORDERED: METOCLOPRAMIDE HCL INJ/PF 10 MG/2 ML SDV ONE (14:17)
[2018-12-11] MEDS ORDERED: ONDANSETRON HCL INJ/PF 4 MG/2 ML SDV ONE (14:17)
[2018-12-11] MEDS ORDERED: DEXAMETHASONE SOD PHOSPHATE INJ 4 MG/1 ML VIAL ONE (14:17)
[2018-12-11] MEDS ORDERED: SUCCINYLCHOLINE CHLORIDE INJ 200 MG/10 ML VIAL ONE (14:17)
[2018-12-11] MEDS ORDERED: GLYCOPYRROLATE 1 MG/5 ML SYRINGE ONE (14:17)
[2018-12-11] MEDS ORDERED: LIDOCAINE 2% INJ-PF (20 MG/ML) 2 ML AMPUL ONE (14:17)
--- NOTE | 2018-12-11 15:41 | EKG REPORT ---
SEVERITY:- ABNORMAL ECG - SINUS RHYTHM MULTIPLE ATRIAL PREMATURE COMPLEXES FIRST DEGREE AV BLOCK dIFFUSE NONSPECIFIC ST-T CHANGES : Confirmed by: Sergio Sánchez MD 11-Dec-2018 15:39:46
[2018-12-11] MEDS ORDERED: FENTANYL CITRATE INJ/PF 250 MCG/5 ML AMPULE ONE (16:19)
[2018-12-11] MEDS ORDERED: MIDAZOLAM 2 MG/2 ML INJ ONE (16:19)
[2018-12-11] MEDS ORDERED: EPHEDRINE SULFATE INJ 50 MG/1 ML AMPULE ONE (16:20)
[2018-12-11] MEDS ORDERED: DEXMEDETOMIDINE INJ 80 MCG/20 ML VIAL IV ONE (16:20)
[2018-12-11] MEDS ORDERED: ACETAMINOPHEN 1,000 MG/100 ML RTUPB IV ONE (16:20)
[2018-12-11] MEDS ORDERED: PROPOFOL INJ 200 MG/20 ML VIAL IV ONE (16:20)
[2018-12-11] MEDS ORDERED: MEPERIDINE HCL/PF INJ 25 MG/1 ML DISP.SYRIN IV PRN (16:58)
[2018-12-11] MEDS ORDERED: MORPHINE SULFATE 10 MG/ML INJ IV PRN (16:58)
[2018-12-11] MEDS ORDERED: DIPHENHYDRAMINE HCL 50 MG/ML VIAL IV PRN (16:58)
[2018-12-11] MEDS ORDERED: FENTANYL CITRATE INJ/PF 100 MCG/2 ML AMPUL IV PRN ×3 (16:58)
[2018-12-11] MEDS ORDERED: PROMETHAZINE HCL INJ 25 MG/1 ML VIAL IV PRN ×2 (16:58)
[2018-12-11] MEDS ORDERED: ONDANSETRON HCL INJ/PF 4 MG/2 ML SDV IV PRN (16:58)
--- NOTE | 2018-12-11 17:38 | Operative Report ---
Operative Report DATE OF SURGERY: 12/11/18 PREOPERATIVE DIAGNOSIS: Chronic cholecystitis with cholelithiasis POSTOPERATIVE DIAGNOSIS: Same OPERATION: Laparoscopic cholecystectomy SURGEON: JIM ADAME SUPPLIER QUALITY ENGINEER: GISSELL CAMPOS ANESTHESIA: GA TISSUE REMOVED OR ALTERED: gallbladder with contents COMPLICATIONS: None ESTIMATED BLOOD LOSS: Scant INTRAOPERATIVE FINDINGS: See below PROCEDURE: After obtaining informed consent, the patient was taken to the operating room. General Anesthesia was induced; the arms were extended, and the abdomen was exposed, and prepped and draped in a sterile fashion. Instrumentation was set up for laparoscopic cholecystectomy. Surgical plan and surgical timeout were conducted. A vertical incision was made above the umbilicus, and a verres needle was inserted uneventfully into the peritoneal cavity. Pneumoperitoneum was established. The verres needle was removed and a 5 mm trocar was inserted and a 5 mm flexible laparoscope was inserted. Visualization of the peritoneal cavity confirmed safe uneventful entry. There was a small capri made in the right lobe of liver, anterior surface with minimal venous bleeding. Surgicel was applied and bleeding abated. This was related to trocar during insertion of a subcostal 5 mm port.. Under direct visualization 2 additional 5 mm ports were established, one in the subxiphoid position and second in the subcostal position. The adhesions between the gallbladder, and the greater omentum the gastroduodenal area were all taken down using combination of blunt and electrocautery dissection under excellent visualization. Visualization of the hepatobiliary anatomy revealed no anatomic variations. A grasper was placed on the fundus of the gallbladder and the gallbladder is elevated over the right surface of the liver; a second grasper was used to grasp the infundibulum of the gallbladder. The neck of the gallbladder and junction with the cystic duct was dissected out. The Cystic artery was in its usual location medial and cephalad to the cystic duct. The cystic artery was surrounded with a right angle clamp, clipped twice proximally and divided with laparoscopic scissors. We now opened the triangle of Calot by dividing the peritoneal reflection on both the medial and lateral sides of the cystic duct infundibular junction. The critical view was obtained. Photos were taken; we now milked the cystic duct of any possible stones, clipped the cystic duct approximately 2 times once distally and divided with scissors. The gallbladder was now removed from the undersurface of the liver using hook cautery dissection. Graspers were repositioned gallbladder was placed in Endobag, and the gallbladder was removed uneventfully from the abdominal cavity through the super umbilical port site incision. The specimen was examined, then passed off to pathology for permanent analysis. We returned to the peritoneal cavity check for bleeding, and evidence of bile leak, and there was none. We Confirmed satisfactory placement of clips on cystic duct and cystic artery were secured . At this point we felt the operation was complete. The subcutaneous tissue was then anesthetized with quarter percent Marcaine Sponge and needle counts are correct. The supraumbilical port site was closed with a single 0 Vicryl suture using the suture passer all under direct visualization. Closure was felt to be secure. All ports removed under direct visualization pneumoperitoneum evacuated, and 5 mm port wounds closed with 3-0 Vicryl suture, benzoin and Steri-Strips. The patient was extubated, and taken to the recovery room in stable condition. The physician preschool assistant teacher, Ms. Villalpando, provided assistance during this case by: Assisting and port insertion, retracting tissue, instillation of local anesthesia and closure of skin incisions.
[2018-12-11] MEDS ORDERED: OXYCODONE-ACETAMINOPHEN 5-325 MG TABLET PO PRN (17:43)
--- NOTE | 2018-12-11 17:43 | Discharge Summary ---
Discharge Summary (SDC) - Discharge Final Diagnosis: cholelithiasis Date of Surgery: 12/11/18 Discharge Date: 12/11/18 Condition: Good Forms: ASU Anesthesia D/C Instruction, Discharge POC-Surgical Service Treatment or Instructions: [facility] [address], [place] [address] Discharge Instructions: Laparoscopic Surgery 1. General Information: a. DO NOT DRIVE a car or operate dangerous machinery for 3-4 days or while taking narcotic pain pills. b. DO NOT consume alcohol, tranquilizers, sleeping medications or any non- prescribed medications for 24 hours unless approved by your doctor or as long as taking narcotic prescription medications. c. DO NOT make important decisions or sign any important papers for the first 24 hours after surgery. d. When discharged home the same day of surgery have a responsible person with you for the first night. 2. Activity Restrictions: 2 weeks . a. NO heavy lifting, straining abdominal muscles, bending over a lot, yard work, house work, or sports for [address] for 3-4 days. c. It is fine to go for walks, up and down steps, ride in a car. d. Elevate your head when sleeping/resting. 3. Treatment: a. You may shower 24 hours after surgery, no baths or swimming for 2 weeks. Remove band-aids or dressings before shower but leave paper strips (steri- strips) on the skin to fall off on their own. If still on at postoperative visit they will be removed then. b. Drainage of fluid or blood is not unusual from an incision. If occurs, you can clean with peroxide and cotton ball daily and cover with dry gauze until the wound seals. c. If a lot of bleeding occurs, you can hold pressure with a gauze or cloth over the site for 10 minutes and it will usually stop. If bleeding continues you will need to call for possible evaluation in office or emergency room. 4. Medications: a. _Toradol_ may be taken for pain as needed, one tablet every 6 hours. b. You should resume all normal medications unless a change is specified by your doctors. 5. Diet: Begin with clear liquids and may progress to your normal diet if not nauseated. No high fat, high protein foods the day of surgery. 6. The following may occur after laparoscopic surgery: a. Shoulder or upper back ache from retained gas that should resolve in 1-2 days b. Soreness and bruising at incision sites will resolve with time. c. Scrotal swelling (labia in women) and bruising is often seen after hernia surgery. d. Sore throat e. Fatigue may last days to weeks. f. Difficulty urinating may occur and may need to come into emergency room for urinary catheter placement. 7. Notify Physician If: a. Worsening or pain not improved with pain medication b. Persistent nausea and vomiting c. Fever above 101 d. Persistent bleeding or swelling at operative site e. Unable to urinate and uncomfortable bladder 6-8 hours after surgery 8..Follow Up Care: a. Schedule a follow up appointment with your doctor for 2 weeks. In the event of any postoperative problems or questions or you may call the office during business hours or the On-Call physician evenings and weekends at [facility]. [facility] I understand the instructions for my postoperative care as described above and a copy has been given to me. Patient/Significant Other Witness Date Prescriptions: Ketorolac Tromethamine [Toradol 10 mg Tablet] 10 mg PO Q6HP PRN #20 tablet PRN Reason: Referrals: JIM GARCIA MD [ACTIVE STAFF] - 12/23/18 9:15 am Discharge Diet: Other (Comments) - small bland portions then progress Discharge Activity: Activity As Tolerated, No Lifting Over 10 Pounds Report the Following to Your Physician Immediately: Nausea, Vomiting, Increase in Pain, Fever over 101 Degrees, Unusual Bleeding, Redness, Swelling, Warmth, Drainage-Foul Smelling
[2018-12-11] MEDS ORDERED: OXYCODONE-ACETAMINOPHEN 5-325 MG TABLET ONE (18:44)
[2018-12-11 19:51] VITALS: BP 117/88
== END 2018-12-11 19:45 | disposition home or self-care (01) ==
LOC: OROUT 11:02
PROVIDERS: ATTEND Surgery
DX: K80.10 Calculus of gallbladder with chronic cholecystitis without obstruction (principal); J45.909 Unspecified asthma, uncomplicated; I10 Essential (primary) hypertension; R51 Headache; F17.210 Nicotine dependence, cigarettes, uncomplicated; Z79.891 Long term (current) use of opiate analgesic; Z79.899 Other long term (current) drug therapy; Z79.82 Long term (current) use of aspirin; Z79.51 Long term (current) use of inhaled steroids
CPT/HCPCS: 36415 ×2; 82150; 84132; 85027; 80076; 80048; 88304 ×2; 93005; 93010; 00790; 47562; J2250; J0690; J3490 ×3; J1100; J3010; J2765; J0330; J2405; S0020; J2704; J0131; 790

== ENCOUNTER → 2019-08-18 | Outpatient (CLI) | payer MEDICAID ==
[2019-08-18 11:34] LABS: ABSOLUTE EOSINOPHILS # (AUTO) 0.1 10^3/uL (0.0-0.6); ABSOLUTE LYMPHOCYTES (AUTO) 1.1 10^3/uL (0.5-4.7); ABSOLUTE MONOCYTES (AUTO) 0.4 10^3/uL (0.1-1.4); ABSOLUTE NEUT (AUTO) 3.2 10^3/uL (1.7-8.2); BASOPHILS % (AUTO) 0.9 % (0-2); EOSINOPHILS % (AUTO) 1.8 % (0-6); HEMATOCRIT 38.8 % (36.0-47.0); HEMOGLOBIN 12.9 g/dL (12.0-15.5); LYMPHOCYTES % (AUTO) 22.2 % (13-45); MEAN CORPUSCULAR HEMOGLOBIN 28.7 pg (27.0-33.4); MEAN CORPUSCULAR HGB CONC 33.2 g/dL (32.0-36.0); MEAN CORPUSCULAR VOLUME 87 fl (80-97); PLATELET COUNT 216 10^3/uL (150-450); RED BLOOD COUNT 4.48 10^6/uL (3.72-5.28); SEGMENTED NEUTROPHILS % (AUTO) 67.1 % (42-78); TOTAL CELLS COUNTED % (AUTO) 100 %; WHITE BLOOD COUNT 4.8 10^3/uL (4.0-10.5)
[2019-08-18 11:55] LABS: ALKALINE PHOSPHATASE 121 U/L (38-126); ANION GAP 7 (5-19); ASPARTATE AMINO TRANSFERASE 30 U/L (14-36); BILIRUBIN,TOTAL 0.3 mg/dL (0.2-1.3); BLOOD UREA NITROGEN 21 mg/dL (7-20); CARBON DIOXIDE 28 mmol/L (22-30); CHLORIDE 101 mmol/L (98-107); CHOLESTEROL 180.79 mg/dL (0-200); GLUCOSE 88 mg/dL (75-110); POTASSIUM 4.4 mmol/L (3.6-5.0); TOTAL PROTEIN 8.8 g/dL (6.3-8.2); TRIGLYCERIDES 93 mg/dL (<150)
[2019-08-18 12:06] LABS: DIRECT LDL 115 mg/dL (<100)
== END ==
LOC: OD 11:01
PROVIDERS: ATTEND Physician Assistant
DX: F20.9 Schizophrenia, unspecified (principal); Z79.899 Other long term (current) drug therapy
CPT/HCPCS: 36415; 80053; 80061; 83036; 85025

== ENCOUNTER 2020-01-01 14:20 | Emergency (ER) | payer SELFPAY ==
[2020-01-01] MEDS ORDERED: NORMAL SALINE 1000 ML 1,000 ML IV ONE (16:22)
[2020-01-01] MEDS ORDERED: ONDANSETRON HCL INJ/PF 4 MG/2 ML SDV IV ONE (16:23)
--- NOTE | 2020-01-01 16:23 | ER Document Report ---
ED General - General Mode of Arrival: Medic Information source: Patient, Emergency Med Personnel TRAVEL OUTSIDE OF THE [place] IN LAST 30 DAYS: No - HPI Onset: Last week Onset/Duration: Gradual, Persistent Quality of pain: Achy, Dull Severity: Mild Pain Level: 1 Associated symptoms: Diarrhea, Nausea, Vomiting Exacerbated by: Food Relieved by: Denies Similar symptoms previously: Yes Recently seen / treated by doctor: No - Related Data Home Medications: meclizine <SULEMA WESTON - Last Filed: 01/01/20 20:23> <PATIENCE YADAV - Last Filed: 01/02/20 00:54> - General Chief Complaint: Nausea/Vomiting/Diarrhea Stated Complaint: NAUSEA, VOMITING Time Seen by Provider: 01/01/20 16:04 Primary Care Provider: HI RODRÍGUEZ PA-C [Primary Care Provider] - Follow up as needed Notes: Patient is a 59-year-old female presenting to the emergency department chief complaint of nausea vomiting and diarrhea since Sunday. Patient states she has a prior history of acid reflux and hypertension she does smoke cigarettes however denies alcohol denies sick contacts denies bad food exposure. Patient states she has tried broth and water and that also does not settle and she ends up vomiting it back up. (SULEMA WESTON) - Related Data Allergies/Adverse Reactions: No Known Allergies Allergy (Verified 12/11/18 11:22) Past Medical History - General Information source: Patient - Social History Smoking Status: Current Every Day Smoker Cigarette use (# per day): Yes Chew tobacco use (# tins/day): No Smoking Education Provided: Yes Frequency of alcohol use: None Drug Abuse: None Lives with: Family Family History: Arthritis, CAD, CVA, DM, Hyperlipidemia, Hypertension. denies: COPD, Malignancy, Thyroid Disfunction Patient has suicidal ideation: No Patient has homicidal ideation: No - Past Medical History Cardiac Medical History: Reports: Hx Hypertension Denies: Hx Atrial Fibrillation, Hx Congestive Heart Failure, Hx Coronary Artery Disease, Hx Heart Attack, Hx Hypercholesterolemia, Hx Peripheral Vascular Disease, Hx Heart Murmur Pulmonary Medical History: Reports: Hx Asthma - MILD Denies: Hx Bronchitis, Hx COPD, Hx Pneumonia Neurological Medical History: Reports: Hx Migraine, Hx Seizures - OVER 20YRS AGO ONLY ONCE. Denies: Hx Cerebrovascular Accident Renal/ Medical History: Reports: Hx Kidney Stones. Denies: Hx Peritoneal Dialysis GI Medical History: Reports: Hx Gastroesophageal Reflux Disease. Denies: Hx Crohn's Disease, Hx Hepatitis, Hx Hiatal Hernia Musculoskeletal Medical History: Denies Hx Arthritis, Denies Hx Fibromyalgia, Reports Hx Musculoskeletal Deformity, Reports Hx Musculoskeletal Trauma Psychiatric Medical History: Reports: Hx Anxiety, Hx Bipolar Disorder, Hx Depression, Hx Schizophrenia Denies: Hx Post Traumatic Stress Disorder Traumatic Medical History: Reports: Hx Fractures - RT ankle ,denies sugery, reports cast application only Infectious Medical History: Denies: Hx Hepatitis Past Surgical History: Reports: Hx Abdominal Surgery, Hx Appendectomy - 1993, "emergency", Hx Hysterectomy, Hx Nose Surgery, Hx Orthopedic Surgery - right patella replacement, Other - Cataracts. Denies: Hx Section, Hx Cholecystectomy, Hx Colostomy, Hx Coronary Artery Bypass Graft, Hx Gastric Bypass Surgery, Hx Herniorrhaphy, Hx Mastectomy, Hx Pacemaker, Hx Tonsillectomy, Hx Tubal Ligation - Immunizations Immunizations up to date: No Hx Diphtheria, Pertussis, Tetanus Vaccination: Yes <SULEMA WESTON - Last Filed: 01/01/20 20:23> Review of Systems <SULEMA WESTON - Last Filed: 01/01/20 20:23> - Review of Systems Notes: REVIEW OF SYSTEMS: CONSTITUTIONAL : Denies fever, chills, or sweats. Denies recent illness. EENT: Denies eye, ear, throat, or mouth pain or symptoms. Denies nasal or sinus congestion. CARDIOVASCULAR: Denies chest pain. RESPIRATORY: Denies cough, cold, or chest congestion. Denies shortness of breath, difficulty breathing, or wheezing. GASTROINTESTINAL: Per HPI GENITOURINARY: Denies difficulty urinating, painful urination, burning, frequency, or blood in urine. MUSCULOSKELETAL: Denies neck or back pain or joint pain or swelling. SKIN: Denies rash or skin lesions. HEMATOLOGIC : Denies easy bruising or bleeding. NEUROLOGICAL: Denies altered mental status or loss of consciousness. Denies headache. Denies weakness or paralysis or loss of use of either side. Denies problems with gait or speech. Denies sensory or motor loss. PSYCHIATRIC: Denies suicidal or homicidal ideations 10 Systems are negative unless otherwise specified above (SULEMA WESTON) Physical Exam <SULEMA WESTON - Last Filed: 01/01/20 20:23> - Vital signs Vitals: Resp 18 01/01/20 15:02 - Notes Notes: PHYSICAL EXAMINATION: GENERAL: Well-appearing, well-nourished and in no acute distress. HEAD: Atraumatic, normocephalic. EYES: Pupils equal round and reactive to light, extraocular movements intact, sclera anicteric, conjunctiva are normal. ENT: nares patent, oropharynx clear without exudates. Tacky mucous membranes. NECK: Normal range of motion, supple without lymphadenopathy, no appreciable JVD LUNGS: Lungs clear to auscultation bilaterally and equal. No wheezes rales or rhonchi. HEART: Regular rate and rhythm without murmurs ABDOMEN: Soft, nontender, hypoactive bowel sounds. No guarding, no rebound. No masses appreciated. EXTREMITIES: Active full range of motion, no pitting or edema. No cyanosis. 2+ pulses x4 NEUROLOGICAL: No focal neurological deficits. Moves all extremities spontaneously and on command. SKIN: Warm, Dry, and intact. Normal turgor, no rashes or lesions noted. (SULEMA WESTON) Course - Laboratory Result Diagrams: 01/01/20 14:55 01/01/20 14:55 - Diagnostic Test Radiology reviewed: Reports reviewed - EKG Interpretation by Me EKG shows normal: Sinus rhythm Rate: Tachycardia When compared to previous EKG there are: Changes noted - EKG is interpreted by me demonstrates sinus tachycardia rate of 104 bpm to have ventricular bigeminy similar to prior EKG. <SULEMA WESTON - Last Filed: 01/01/20 20:23> - Laboratory Result Diagrams: 01/01/20 14:55 01/01/20 21:45 <PATIENCE YADAV - Last Filed: 01/02/20 00:54> - Re-evaluation Re-evalutation: 01/01/20 20:25 Patient has been maintained on a laboratory monitor while in emergency department. Patient has remained stable without signs of decompensation no episodes of nausea or vomiting but I have been made aware of she has had some bowel movements. Patient has been found to have a urinary tract infection as well as a significantly low potassium level of 2.2. Patient is having her potassium r epleted with 2 each 20 mEq K riders first of which is going in at this time. After the second is completed patient will receive a gram of Rocephin IV for her urinary tract infection. Patient will be reevaluated subsequently for her potassium level and if it is normalized and she feels better patient will be discharged home otherwise patient will need to be admitted to the hospitalist service. Patient will be signed out to oncoming physician. (SULEMA WESTON) 01/02/20 00:49 Magnesium is normal, potassium is actually, quite well despite the fact that she is received fluid. Patient has been able to tolerate oral potassium as well. Patient will be given the choice of admission to the hospital for continued K riders or oral potassium at home over the next 5 days and be rechecked. 01/02/20 00:52 Patient is agreeable to going home with oral potassium and being rechecked. She will return if she has more than 2-3 loose bowel movements a day or if she starts vomiting. (PATIENCE YADAV) - Vital Signs Vital signs: Temp Pulse Resp BP Pulse Ox 97.6 F 95 21 H 129/71 H 93 01/01/20 15:07 01/01/20 15:07 01/02/20 00:01 01/02/20 00:01 01/02/20 00:01 - Laboratory Laboratory results interpreted by me: 01/01/20 01/01/20 01/01/20 14:55 18:08 21:45 Sodium 131.2 L 130.9 L Potassium 2.2 L* 2.6 L* Chloride 86 L 91 L Carbon Dioxide 34 H 32 H Est GFR (MDRD) Non-Af 58 L Glucose 112 H AST 43 H Total Protein 9.0 H Urine Protein 30 H Urine Ketones 20 H Urine Blood SMALL H Urine Urobilinogen 4.0 H Ur Leukocyte Esterase LARGE H Discharge <SULEMA WESTON - Last Filed: 01/01/20 20:23> <PATIENCE YADAV - Last Filed: 01/02/20 00:54> - Discharge Clinical Impression: Nausea vomiting and diarrhea, Hypokalemia due to excessive gastrointestinal loss of potassium UTI (urinary tract infection) Qualifiers: Urinary tract infection type: site unspecified Hematuria presence: without hematuria Qualified Code(s): N39.0 - Urinary tract infection, site not specified Condition: Stable Disposition: HOME, SELF-CARE Instructions: Antinausea Medication ([facility]), Diarrhea, Nonspecific ([facility]), Nitrofurantoin ([facility]), Vomiting ([facility]) Additional Instructions: Take 4 of the potassium pills a day for the next 5 days and then have your potassium checked on day 6. If you have more than 2-3 loose bowel movements a d ay, if you start vomiting or if you just do not feel right please return to emergency department. You may use Imodium as directed on the box [id number] to help your diarrhea. Prescriptions: Potassium Chloride [Klor-Con 10 Meq Tablet ER] 40 meq PO DAILY #20 tablet. Referrals: HI RODRÍGUEZ PA-C [Primary Care Provider] - Follow up as needed
[2020-01-01 16:45] LABS: ABSOLUTE LYMPHOCYTES (AUTO) 0.8 10^3/uL (0.5-4.7); ABSOLUTE MONOCYTES (AUTO) 0.7 10^3/uL (0.1-1.4); ABSOLUTE NEUT (AUTO) 4.5 10^3/uL (1.7-8.2); BASOPHILS % (AUTO) 0.3 % (0-2); EOSINOPHILS % (AUTO) 0.2 % (0-6); HEMATOCRIT 42.8 % (36.0-47.0); HEMOGLOBIN 14.4 g/dL (12.0-15.5); LYMPHOCYTES % (AUTO) 13.2 % (13-45); MEAN CORPUSCULAR HEMOGLOBIN 28.8 pg (27.0-33.4); MEAN CORPUSCULAR HGB CONC 33.7 g/dL (32.0-36.0); MEAN CORPUSCULAR VOLUME 86 fl (80-97); PLATELET COUNT 195 10^3/uL (150-450); RED CELL DISTRIBUTION WIDTH 13.6 % (11.5-14.0); SEGMENTED NEUTROPHILS % (AUTO) 75.3 % (42-78); TOTAL CELLS COUNTED % (AUTO) 100 %
[2020-01-01 16:51] LABS: ALBUMIN 3.9 g/dL (3.5-5.0); ALKALINE PHOSPHATASE 126 U/L (38-126); ANION GAP 11 (5-19); ASPARTATE AMINO TRANSFERASE 43 U/L (14-36); BILIRUBIN,DIRECT 0.2 mg/dL (0.0-0.4); BILIRUBIN,TOTAL 0.8 mg/dL (0.2-1.3); BLOOD UREA NITROGEN 19 mg/dL (7-20); CALCIUM 9.1 mg/dL (8.4-10.2); CARBON DIOXIDE 34 mmol/L (22-30); CHLORIDE 86 mmol/L (98-107); GLUCOSE 112 mg/dL (75-110)
[2020-01-01 16:54] LABS: POTASSIUM 2.2 mmol/L (3.6-5.0)
--- NOTE | 2020-01-01 17:30 | RADIOLOGY REPORT (SQ) ---
EXAM DESCRIPTION: ACUTE ABDOMEN SERIES IMAGES COMPLETED DATE/TIME: 01/01/2020 4:51 pm REASON FOR STUDY: n/v/d/pain COMPARISON: None. NUMBER OF VIEWS: Three views. TECHNIQUE: Frontal chest, supine abdomen and upright/decubitus abdomen radiographic images acquired. LIMITATIONS: None. FINDINGS: CHEST: Lungs clear of infiltrates. FREE AIR: None. No abnormal gas collections. BOWEL GAS PATTERN: Nonobstructive pattern. No dilated loops or air fluid levels. CALCIFICATIONS: No suspicious calcifications. HARDWARE: Right upper quadrant clips. SOFT TISSUES: No gross mass or suggestion of organomegaly. BONES: No acute fracture. No worrisome bone lesions. OTHER: No other significant finding. IMPRESSION: NO RADIOGRAPHIC EVIDENCE FOR ACUTE ABDOMINAL DISEASE. TECHNICAL DOCUMENTATION: JOB ID: [id number] 2010 [employer]- All Rights Reserved Reading location - IP/workstation name: [email or web address]
[2020-01-01 18:34] LABS: APPEARANCE,URINE SLIGHTLY-CLOUDY; BILIRUBIN,URINE NEGATIVE (NEGATIVE); COLOR,URINE AMBER; GLUCOSE, URINE NEGATIVE (NEGATIVE); KETONES,URINE 20 mg/dL (NEGATIVE); LEUKOCYTE ESTERASE,URINE LARGE (NEGATIVE); NITRITE,URINE NEGATIVE (NEGATIVE); PROTEIN,URINE 30 mg/dL (NEGATIVE); URINE SPECIFIC GRAVITY 1.021
[2020-01-01] MEDS: POTASSI CL 20 MEQ/50 ML RIDER 20 MEQ/50 ML RTUPB IV SCH ×2 (18:50→20:41)
--- NOTE | 2020-01-01 19:31 | EKG REPORT ---
SEVERITY:- ABNORMAL ECG - SINUS TACHYCARDIA VENTRICULAR BIGEMINY REPOL ABNRM SUGGESTS ISCHEMIA, ANT-LAT LEADS : Confirmed by: Sumi Wren MD 01-Jan-2020 19:31:22
[2020-01-01] MEDS ORDERED: CEFTRIAXONE 1 GM/D5W RTU 1 GM/50 ML RTUPB IV ONE (20:27)
[2020-01-01] MEDS ORDERED: POTASSIUM CHLORIDE 10 MEQ TABLET.ER PO ONE (20:44)
[2020-01-01 22:17] LABS: ANION GAP 8 (5-19); BLOOD UREA NITROGEN 18 mg/dL (7-20); CALCIUM 8.5 mg/dL (8.4-10.2); CARBON DIOXIDE 32 mmol/L (22-30); CHLORIDE 91 mmol/L (98-107); GLUCOSE 102 mg/dL (75-110)
[2020-01-01 22:23] LABS: POTASSIUM 2.6 mmol/L (3.6-5.0)
[2020-01-02] MEDS ORDERED: ONDANSETRON ODT 4 MG TAB (6 TAB/ER DISP) PO PRN (00:55)
[2020-01-02 01:21] VITALS: BP 118/64
== END 2020-01-02 01:21 | disposition home or self-care (01) ==
LOC: ER 14:20
DX: R11.2 Nausea with vomiting, unspecified (principal); R19.7 Diarrhea, unspecified; N39.0 Urinary tract infection, site not specified; E87.6 Hypokalemia; R00.8 Other abnormalities of heart beat; R00.0 Tachycardia, unspecified; I10 Essential (primary) hypertension; F17.210 Nicotine dependence, cigarettes, uncomplicated; J45.909 Unspecified asthma, uncomplicated; Z87.19 Personal history of other diseases of the digestive system
CPT/HCPCS: 93005; 99284; 36415; 82962; 83690; 83735; 85025; 80053; 81001; 74022; 93010; J2405; J3480; J7030; J0696

== ENCOUNTER 2020-02-22 10:50 | Emergency (ER) | payer SELFPAY ==
[2020-02-22] MEDS ORDERED: NORMAL SALINE 1000 ML 1,000 ML IV ONE (12:55)
[2020-02-22] MEDS ORDERED: ONDANSETRON HCL INJ/PF 4 MG/2 ML SDV IV ONE (12:55)
--- NOTE | 2020-02-22 12:56 | ER Document Report ---
ED General - General Chief Complaint: Nausea/Vomiting/Diarrhea Stated Complaint: VOMITING/DIARRHEA Time Seen by Provider: 02/22/20 12:11 Primary Care Provider: SNEHAL VERA MD [Primary Care Provider] - Follow up in 3-5 days Notes: Patient is a 59-year-old female who presents the emergency department with a chi ef complaint of nausea, vomiting, and diarrhea. Patient states that her symptoms started a few days ago. States that she continues to have her symptoms. States that she has not been able to keep any medications down. Denies any fever, body aches, or chills. Denies any abdominal pain. TRAVEL OUTSIDE OF THE [place] IN LAST 30 DAYS: No - Related Data Allergies/Adverse Reactions: No Known Allergies Allergy (Verified 02/22/20 12:01) Past Medical History - Social History Smoking Status: Former Smoker Frequency of alcohol use: None Drug Abuse: None Family History: Arthritis, CAD, CVA, DM, Hyperlipidemia, Hypertension. denies: COPD, Malignancy, Thyroid Disfunction Patient has homicidal ideation: No - Past Medical History Cardiac Medical History: Reports: Hx Hypertension Denies: Hx Atrial Fibrillation, Hx Congestive Heart Failure, Hx Coronary Artery Disease, Hx Heart Attack, Hx Hypercholesterolemia, Hx Peripheral Vascular Disease, Hx Heart Murmur Pulmonary Medical History: Reports: Hx Asthma - MILD Denies: Hx Bronchitis, Hx COPD, Hx Pneumonia Neurological Medical History: Reports: Hx Migraine, Hx Seizures - OVER 20YRS AGO ONLY ONCE. Denies: Hx Cerebrovascular Accident Renal/ Medical History: Reports: Hx Kidney Stones. Denies: Hx Peritoneal Dialysis GI Medical History: Reports: Hx Gastroesophageal Reflux Disease. Denies: Hx Crohn's Disease, Hx Hepatitis, Hx Hiatal Hernia Musculoskeletal Medical History: Denies Hx Arthritis, Denies Hx Fibromyalgia, Reports Hx Musculoskeletal Deformity, Reports Hx Musculoskeletal Trauma Psychiatric Medical History: Reports: Hx Anxiety, Hx Bipolar Disorder, Hx Depression, Hx Schizophrenia Denies: Hx Post Traumatic Stress Disorder Traumatic Medical History: Reports: Hx Fractures - RT ankle ,denies sugery, reports cast application only Infectious Medical History: Denies: Hx Hepatitis Past Surgical History: Reports: Hx Abdominal Surgery, Hx Appendectomy - 1993, "emergency", Hx Hysterectomy, Hx Nose Surgery, Hx Orthopedic Surgery - right patella replacement, Other - Cataracts. Denies: Hx Section, Hx Cholecystectomy, Hx Colostomy, Hx Coronary Artery Bypass Graft, Hx Gastric Bypass Surgery, Hx Herniorrhaphy, Hx Mastectomy, Hx Pacemaker, Hx Tonsillectomy, Hx Tubal Ligation - Immunizations Immunizations up to date: No Hx Diphtheria, Pertussis, Tetanus Vaccination: Yes Review of Systems - Review of Systems Notes: REVIEW OF SYSTEMS: CONSTITUTIONAL : Denies recent illness. Denies recent unintentional weight loss. Denies fever, chills, or sweats. EENT: Denies eye, ear, throat, or mouth pain, discharge, or symptoms. Denies nasal or sinus congestion. CARDIOVASCULAR: Denies chest pain. RESPIRATORY: Denies shortness of breath, cough, congestion, difficulty breathing, or wheezing. GASTROINTESTINAL: See HPI. GENITOURINARY: Denies difficulty urinating, burning, blood in urine, urgency or frequency. MUSCULOSKELETAL: Denies neck and back pain. Denies joint pain or swelling. SKIN: Denies rash, itchiness, or lesions HEMATOLOGIC : Denies easy bruising or bleeding. LYMPHATIC: Denies swollen, painful, enlarged glands. NEUROLOGICAL: Denies no numbness or tingling denies weakness. Denies headache. Denies altered mental status. Denies alteration in speech. PSYCHIATRIC: Denies stress, anxiety, alteration in sleep patterns, or depression. All other systems reviewed and negative. Physical Exam - Vital signs Vitals: Temp Pulse Resp BP Pulse Ox 97.9 F 93 18 138/76 H 98 02/22/20 11:50 02/22/20 11:50 02/22/20 11:50 02/22/20 11:50 02/22/20 11:50 - Notes Notes: PHYSICAL EXAMINATION: GENERAL: Appears well, healthy, well-nourished, no acute distress. HEAD: Normocephalic, atraumatic. EYES: PERRL, conjunctiva normal, all extraocular movements intact, sclera nonicteric ENT: Moist mucous membranes. NECK: Supple, no noticeable swelling, redness, rash. Normal range of motion. LUNGS: Equal breath sounds bilaterally and clear to auscultation. No wheezes rales or rhonchi. CARDIOVASCULAR: S1-S2, regular rate, regular rhythm. Radial pulses 2+, normal. ABDOMEN: Normoactive bowel sounds. Soft, mildly tender, no guarding, no rebound tenderness, and no masses palpated. EXTREMITIES: Normal strength and range of motion, no pitting or edema. No cyanosis. NEUROLOGICAL: Moves all extremities upon command. Strength 5/5 in all extremities. PSYCH: Normal mood, normal affect. SKIN: Warm, dry. No rash, lesions, ulcerations noted. Normal skin turgor. Course - Re-evaluation Re-evalutation: 02/22/20 16:00 Hematology shows a hemoglobin of 15.7, which is most likely due to dehydration from diarrhea and vomiting. Chemistries needed to be redrawn due to the lab hemolyzing. Patient's potassium is 2.4. Potassium will be replaced p.o. and IV. Sodium was 129.6 and chloride was 88. She received a liter of IV fluids. AST is mildly elevated, most likely due to fatty liver disease. 02/22/20 20:30 Patient states that she feels remarkably better after receiving IV fluids, Rocephin, and potassium. We will start the patient on Keflex for urinary tract infection. Have a low suspicion for appendicitis, ileus, bowel obstruction, mesenteric ischemia, or any life-threatening etiology at this time. Patient will follow-up with her primary care provider to have her potassium rechecked. I added on magnesium. 02/22/20 21:05 Magnesium was unremarkable. Patient will be discharged home. Patient will be started on Keflex. Follow-up precautions were given. Verbal discharge instructions were given to the patient. They verbalized understanding. They are stable for discharge. - Vital Signs Vital signs: Temp Pulse Resp BP Pulse Ox 99.0 F 75 18 116/68 99 02/22/20 20:15 02/22/20 20:15 02/22/20 20:15 02/22/20 20:15 02/22/20 20:15 - Laboratory Result Diagrams: 02/22/20 14:06 02/22/20 15:05 Laboratory results interpreted by me: 02/22/20 02/22/20 02/22/20 14:06 14:06 15:05 RBC 5.33 H Hgb 15.7 H RDW 14.3 H Sodium 129.6 L Potassium 2.4 L* Chloride 88 L AST 46 H Total Protein 9.0 H Urine Protein 30 H Urine Ketones 20 H Urine Blood SMALL H Urine Urobilinogen 2.0 H Ur Leukocyte Esterase LARGE H Discharge - Discharge Clinical Impression: Hypokalemia Nausea and vomiting Qualifiers: Vomiting type: unspecified Vomiting Intractability: unspecified Qualified Code(s): R11.2 - Nausea with vomiting, unspecified Diarrhea Qualifiers: Diarrhea type: unspecified type Qualified Code(s): R19.7 - Diarrhea, unspecified Condition: Stable Disposition: HOME, SELF-CARE Additional Instructions: You were seen today in the emergency department for nausea, vomiting, diarrhea. You have a urinary tract infection. You received a dose of antibiotics here in the emergency department. Please take all your antibiotics as prescribed. You also received IV fluids. Please follow-up with your primary care provider to have your potassium rechecked, because your potassium was low. Take nausea medication as needed as prescribed. Prescriptions: Cephalexin Monohydrate [Keflex 500 mg Capsule] 500 mg PO BID #14 capsule Ondansetron [Zofran Odt 4 mg Tablet] 1 - 2 tab PO Q4H PRN #15 tab.rapdis PRN Reason: For Nausea/Vomiting Referrals: SNEHAL VERA MD [Primary Care Provider] - Follow up in 3-5 days
[2020-02-22 14:24] LABS: ABSOLUTE LYMPHOCYTES (AUTO) 0.9 10^3/uL (0.5-4.7); ABSOLUTE MONOCYTES (AUTO) 0.4 10^3/uL (0.1-1.4); ABSOLUTE NEUT (AUTO) 4.6 10^3/uL (1.7-8.2); BASOPHILS % (AUTO) 0.3 % (0-2); EOSINOPHILS % (AUTO) 0.2 % (0-6); HEMATOCRIT 45.2 % (36.0-47.0); HEMOGLOBIN 15.7 g/dL (12.0-15.5); LYMPHOCYTES % (AUTO) 15.8 % (13-45); MEAN CORPUSCULAR HEMOGLOBIN 29.4 pg (27.0-33.4); MEAN CORPUSCULAR HGB CONC 34.6 g/dL (32.0-36.0); MEAN CORPUSCULAR VOLUME 85 fl (80-97); MONOCYTES % (AUTO) 6.8 % (3-13); PLATELET COUNT 274 10^3/uL (150-450); RED BLOOD COUNT 5.33 10^6/uL (3.72-5.28); RED CELL DISTRIBUTION WIDTH 14.3 % (11.5-14.0); SEGMENTED NEUTROPHILS % (AUTO) 76.9 % (42-78); TOTAL CELLS COUNTED % (AUTO) 100 %; WHITE BLOOD COUNT 5.9 10^3/uL (4.0-10.5)
[2020-02-22 14:29] LABS: APPEARANCE,URINE SLIGHTLY-CLOUDY; BILIRUBIN,URINE NEGATIVE (NEGATIVE); COLOR,URINE YELLOW; GLUCOSE, URINE NEGATIVE (NEGATIVE); KETONES,URINE 20 mg/dL (NEGATIVE); LEUKOCYTE ESTERASE,URINE LARGE (NEGATIVE); NITRITE,URINE NEGATIVE (NEGATIVE); PROTEIN,URINE 30 mg/dL (NEGATIVE); URINE SPECIFIC GRAVITY 1.013
[2020-02-22 15:36] LABS: ALBUMIN 4.1 g/dL (3.5-5.0); ALKALINE PHOSPHATASE 90 U/L (38-126); ASPARTATE AMINO TRANSFERASE 46 U/L (14-36); BILIRUBIN,DIRECT 0.3 mg/dL (0.0-0.4); BILIRUBIN,TOTAL 1.1 mg/dL (0.2-1.3); BLOOD UREA NITROGEN 16 mg/dL (7-20); GLUCOSE 85 mg/dL (75-110)
[2020-02-22] MEDS ORDERED: CEFTRIAXONE INJ 1000 MG VIAL IV ONE (15:38)
[2020-02-22 15:41] LABS: ANION GAP 19 (5-19); CARBON DIOXIDE 23 mmol/L (22-30); CHLORIDE 88 mmol/L (98-107)
[2020-02-22 15:47] LABS: POTASSIUM 2.4 mmol/L (3.6-5.0)
[2020-02-22] MEDS ORDERED: POTASSIUM CHLORIDE 10 MEQ TABLET.ER PO ONE ×2 (15:51→20:18)
[2020-02-22] MEDS ORDERED: POTASSI CL 20 MEQ/50 ML RIDER 20 MEQ/50 ML RTUPB IV ONE (15:51)
[2020-02-22] MEDS ORDERED: ONDANSETRON ODT 4 MG TAB (6 TAB/ER DISP) PO PRN (21:05)
[2020-02-22 22:42] VITALS: BP 103/73
== END 2020-02-22 23:09 | disposition home or self-care (01) ==
LOC: ER 10:50
DX: R11.2 Nausea with vomiting, unspecified (principal); R19.7 Diarrhea, unspecified; E87.6 Hypokalemia; R10.819 Abdominal tenderness, unspecified site; R74.0 Nonspecific elevation of levels of transaminase and lactic acid dehydrogenase [LDH]; I10 Essential (primary) hypertension; J45.909 Unspecified asthma, uncomplicated; Z87.891 Personal history of nicotine dependence; Z87.19 Personal history of other diseases of the digestive system; Z90.49 Acquired absence of other specified parts of digestive tract; Z90.710 Acquired absence of both cervix and uterus
CPT/HCPCS: 99284; 96361; 96375; 96365; 36415; 87086; 83690; 83735; 85025; 87088; 80053; 81001; J0696; J2405; J3480; J7030

== ENCOUNTER 2020-03-11 12:42 | Emergency (ER) | payer SELFPAY ==
--- NOTE | 2020-03-11 13:11 | ER Document Report ---
ED Medical Screen (RME) - General Chief Complaint: Fainting Stated Complaint: FALL/RIGHT SIDE HIP PAIN Time Seen by Provider: 03/11/20 12:51 Primary Care Provider: SNEHAL VERA MD [Primary Care Provider] - Follow up as needed TRAVEL OUTSIDE OF THE [place] IN LAST 30 DAYS: No - HPI Notes: 03/11/20 13:10 59-year-old female to the emergency department with complaints of right hip pain after she sustained a syncopal episode last night. She states she was walking to get some ice when she felt like she was spinning and then 2 hours later she woke up on the kitchen floor. She states her right hip and thigh are hurting her. She is able to walk on it but with pain. She states she has been seeing a little bit of bloody stool. She says is only a little bit. However, she also admits that she is been eating a lot of ice. She denies any other symptoms. She has had a colonoscopy before and she said it was normal. I performed a brief medical screening exam on the patient determined that the patient needs further evaluation and management by main side provider. I have placed initial orders to help expedite care. - Related Data Allergies/Adverse Reactions: No Known Allergies Allergy (Verified 03/11/20 12:57) Past Medical History - Past Medical History Cardiac Medical History: Reports: Hx Hypertension Denies: Hx Atrial Fibrillation, Hx Congestive Heart Failure, Hx Coronary Artery Disease, Hx Heart Attack, Hx Hypercholesterolemia, Hx Peripheral Vascular Disease, Hx Heart Murmur Pulmonary Medical History: Reports: Hx Asthma - MILD Denies: Hx Bronchitis, Hx COPD, Hx Pneumonia Neurological Medical History: Reports: Hx Migraine, Hx Seizures - OVER 20YRS AGO ONLY ONCE. Denies: Hx Cerebrovascular Accident Renal/ Medical History: Reports: Hx Kidney Stones. Denies: Hx Peritoneal Dialysis GI Medical History: Reports: Hx Gastroesophageal Reflux Disease. Denies: Hx Crohn's Disease, Hx Hepatitis, Hx Hiatal Hernia Musculoskeltal Medical History: Denies Hx Arthritis, Denies Hx Fibromyalgia, Reports Hx Musculoskeletal Deformity, Reports Hx Musculoskeletal Trauma Psychiatric Medical History: Reports: Hx Anxiety, Hx Bipolar Disorder, Hx Depression, Hx Schizophrenia Denies: Hx Post Traumatic Stress Disorder Traumatic Medical History: Reports: Hx Fractures - RT ankle ,denies sugery, reports cast application only Infectious Medical History: Denies: Hx Hepatitis Past Surgical History: Reports: Hx Abdominal Surgery, Hx Appendectomy - 1993, "emergency", Hx Hysterectomy, Hx Nose Surgery, Hx Orthopedic Surgery - right patella replacement, Other - Cataracts. Denies: Hx Section, Hx Cholecystectomy, Hx Colostomy, Hx Coronary Artery Bypass Graft, Hx Gastric Bypass Surgery, Hx Herniorrhaphy, Hx Mastectomy, Hx Pacemaker, Hx Tonsillectomy, Hx Tubal Ligation - Immunizations Immunizations up to date: No Hx Diphtheria, Pertussis, Tetanus Vaccination: Yes Physical Exam - Vital signs Vitals: Temp Pulse Resp BP Pulse Ox 97.6 F 92 16 90/61 L 99 03/11/20 12:50 03/11/20 12:50 03/11/20 12:50 03/11/20 12:50 03/11/20 12:50 Course - Vital Signs Vital signs: Temp Pulse Resp BP Pulse Ox 97.6 F 92 16 90/61 L 99 03/11/20 12:50 03/11/20 12:50 03/11/20 12:50 03/11/20 12:50 03/11/20 12:50 Doctor's Discharge - Discharge Referrals: SNEHAL VERA MD [Primary Care Provider] - Follow up as needed
[2020-03-11 14:06] LABS: ABSOLUTE LYMPHOCYTES (AUTO) 1.1 10^3/uL (0.5-4.7); ABSOLUTE MONOCYTES (AUTO) 0.5 10^3/uL (0.1-1.4); ABSOLUTE NEUT (AUTO) 8.8 10^3/uL (1.7-8.2); BASOPHILS % (AUTO) 0.3 % (0-2); HEMATOCRIT 38.8 % (36.0-47.0); HEMOGLOBIN 13.2 g/dL (12.0-15.5); LYMPHOCYTES % (AUTO) 10.8 % (13-45); MEAN CORPUSCULAR HEMOGLOBIN 29.2 pg (27.0-33.4); MEAN CORPUSCULAR VOLUME 86 fl (80-97); MONOCYTES % (AUTO) 4.5 % (3-13); PLATELET COUNT 276 10^3/uL (150-450); RED BLOOD COUNT 4.52 10^6/uL (3.72-5.28); RED CELL DISTRIBUTION WIDTH 15.1 % (11.5-14.0); SEGMENTED NEUTROPHILS % (AUTO) 84.4 % (42-78); TOTAL CELLS COUNTED % (AUTO) 100 %; WHITE BLOOD COUNT 10.5 10^3/uL (4.0-10.5)
[2020-03-11 14:22] LABS: INTERNATIONAL RATION (INR) 0.92; PROTHROMBIN TIME 12.6 SEC (11.4-15.4)
[2020-03-11 14:23] LABS: PARTIAL THROMBOPLASTIN TIME 29.9 SEC (23.5-35.8)
--- NOTE | 2020-03-11 14:29 | RADIOLOGY REPORT (SQ) ---
EXAM DESCRIPTION: CT HEAD WITHOUT IMAGES COMPLETED DATE/TIME: 03/11/2020 2:02 pm REASON FOR STUDY: syncope COMPARISON: 02/04/2020 TECHNIQUE: Axial images acquired through the brain without intravenous contrast. Images reviewed wi th bone, brain and subdural windows. Additional sagittal and coronal reconstructions were generated. Images stored on PACS. All CT scanners at this facility use dose modulation, iterative reconstruction, and/or weight based d osing when appropriate to reduce radiation dose to as low as reasonably achievable (ALARA). [facility]: Dose Right [facility]: CareDose [facility]: Dose Right [facility]: Teradose 4D [facility]: [employer] RADIATION DOSE: CT Rad equipment meets quality standard of care and radiation dose reduction techniq ues were employed. CTDIvol: 53.2 mGy. DLP: 1070 mGy-cm. mGy. LIMITATIONS: None. FINDINGS: VENTRICLES: Normal size and contour. CEREBRUM: No masses. No hemorrhage. No midline shift. No evidence for acute infarction. Normal gra y/white matter differentiation. No areas of low density in the white matter. CEREBELLUM: No masses. No hemorrhage. No alteration of density. No evidence for acute infarction. EXTRAAXIAL SPACES: No fluid collections. No masses. ORBITS AND GLOBE: No intra- or extraconal masses. Normal contour of globe without masses. CALVARIUM: No fracture. PARANASAL SINUSES: No fluid or mucosal thickening. SOFT TISSUES: No mass or hematoma. OTHER: No other significant finding. IMPRESSION: NORMAL BRAIN CT WITHOUT CONTRAST. EVIDENCE OF ACUTE STROKE: NO. COMMENT: Quality ID # [id number]: Final reports with documentation of one or more dose reduction techniques (e.g., Automated exposure control, adjustment of the mA and/or kV according to patient size, use of iterative reconstruction technique) TECHNICAL DOCUMENTATION: JOB ID: [id number] 2010 [employer]- All Rights Reserved Reading location - IP/workstation name: [email or web address]
--- NOTE | 2020-03-11 14:32 | RADIOLOGY REPORT (SQ) ---
EXAM DESCRIPTION: CT CERVICAL SPINE WITHOUT IMAGES COMPLETED DATE/TIME: 03/11/2020 2:02 pm REASON FOR STUDY: cervical injury COMPARISON: None. TECHNIQUE: Axial images acquired through the cervical spine without intravenous contrast. Images re viewed with lung, soft tissue and bone windows. Reconstructed coronal and sagittal MPR images review ed. Images stored on PACS. All CT scanners at this facility use dose modulation, iterative reconstruction, and/or weight based d osing when appropriate to reduce radiation dose to as low as reasonably achievable (ALARA). [facility]: Dose Right [facility]: CareDose [facility]: Dose Right [facility]: Teradose 4D [facility]: [employer] RADIATION DOSE: CT Rad equipment meets quality standard of care and radiation dose reduction techniq ues were employed. CTDIvol: 18.4 mGy. DLP: 408 mGy-cm. mGy. LIMITATIONS: None. FINDINGS: ALIGNMENT: Anatomic. MINERALIZATION: Normal. VERTEBRAL BODIES: No fractures or dislocation. DISCS: Multilevel disc space narrowing with osteophytes. This most significantly affects the C5/6 le wendi. FACETS, LATERAL MASSES, POSTERIOR ELEMENTS: Facet arthropathy. No fractures. No dislocation. No ac bartolo findings. HARDWARE: None in the spine. VISUALIZED RIBS: No fractures. LUNG APICES AND SOFT TISSUES: Enlarged thyroid. OTHER: No other significant finding. IMPRESSION: CHRONIC DEGENERATIVE CHANGES. NO ACUTE FINDINGS. TECHNICAL DOCUMENTATION: JOB ID: [id number] Quality ID # [id number]: Final reports with documentation of one or more dose reduction techniques (e.g., Au tomated exposure control, adjustment of the mA and/or kV according to patient size, use of iterative reconstruction technique) 2010 [employer]- All Rights Reserved Reading location - IP/workstation name: [email or web address]
[2020-03-11 14:35] LABS: ALBUMIN 3.6 g/dL (3.5-5.0); ALKALINE PHOSPHATASE 103 U/L (38-126); ANION GAP 14 (5-19); ASPARTATE AMINO TRANSFERASE 33 U/L (14-36); BILIRUBIN,DIRECT 0.4 mg/dL (0.0-0.4); BILIRUBIN,TOTAL 0.7 mg/dL (0.2-1.3); BLOOD UREA NITROGEN 12 mg/dL (7-20); CALCIUM 8.5 mg/dL (8.4-10.2); CARBON DIOXIDE 27 mmol/L (22-30); CHLORIDE 88 mmol/L (98-107); GLUCOSE 116 mg/dL (75-110); TOTAL PROTEIN 8.1 g/dL (6.3-8.2)
--- NOTE | 2020-03-11 14:36 | RADIOLOGY REPORT (SQ) ---
EXAM DESCRIPTION: CHEST SINGLE VIEW IMAGES COMPLETED DATE/TIME: 03/11/2020 2:17 pm REASON FOR STUDY: syncope COMPARISON: 02/04/2020 EXAM PARAMETERS: NUMBER OF VIEWS: One view. TECHNIQUE: Single frontal radiographic view of the chest acquired. RADIATION DOSE: NA LIMITATIONS: None. FINDINGS: LUNGS AND PLEURA: No opacities, masses or pneumothorax. No pleural effusion. MEDIASTINUM AND HILAR STRUCTURES: No masses. Contour normal. HEART AND VASCULAR STRUCTURES: Heart normal in size. Normal vasculature. BONES: No acute findings. HARDWARE: None in the chest. OTHER: No other significant finding. IMPRESSION: NO ACUTE RADIOGRAPHIC FINDING IN THE CHEST. TECHNICAL DOCUMENTATION: JOB ID: [id number] 2010 [employer]- All Rights Reserved Reading location - IP/workstation name: [email or web address]
--- NOTE | 2020-03-11 14:38 | RADIOLOGY REPORT (SQ) ---
EXAM DESCRIPTION: HIP RIGHT AP/LATERAL IMAGES COMPLETED DATE/TIME: 03/11/2020 2:17 pm REASON FOR STUDY: hip pain, fall COMPARISON: None. NUMBER OF VIEWS: Two views. TECHNIQUE: AP pelvis and additional frog legview of the right hip. LIMITATIONS: None. FINDINGS: MINERALIZATION: Normal. RIGHT HIP: No fracture or dislocation. No worrisome bone lesions. Degenerative changes are present. LEFT HIP: No fracture or dislocation. No worrisome bone lesions. Limited views. Degenerative change s are present peer PUBIS AND ISCHIUM: No fracture. PELVIS: No fracture. SACRUM: No fracture or dislocation. No worrisome bone lesions. LOWER LUMBAR SPINE: No fracture or dislocation. No worrisome bone lesions. No significant disc disea se. SOFT TISSUES: No findings. OTHER: No other significant finding. IMPRESSION: No evidence of acute osseous injury. Background of bilateral femoroacetabular degenerat lizette changes. TECHNICAL DOCUMENTATION: JOB ID: [id number] 2010 [employer]- All Rights Reserved Reading location - IP/workstation name: [email or web address]
[2020-03-11] MEDS ORDERED: NORMAL SALINE 1000 ML 1,000 ML IV ONE ×2 (14:45→16:05)
[2020-03-11 14:54] LABS: POTASSIUM 2.8 mmol/L (3.6-5.0)
--- NOTE | 2020-03-11 15:09 | EKG REPORT ---
SEVERITY:- ABNORMAL ECG - SINUS TACHYCARDIA REPOL ABNRM SUGGESTS ISCHEMIA, ANT-LAT LEADS : Confirmed by: Catarino Tucker MD 11-Mar-2020 15:09:46
[2020-03-11 15:50] LABS: APPEARANCE,URINE SLIGHTLY-CLOUDY; BILIRUBIN,URINE NEGATIVE (NEGATIVE); COLOR,URINE AMBER; GLUCOSE, URINE NEGATIVE (NEGATIVE); KETONES,URINE NEGATIVE (NEGATIVE); LEUKOCYTE ESTERASE,URINE MODERATE (NEGATIVE); NITRITE,URINE NEGATIVE (NEGATIVE); PROTEIN,URINE 30 mg/dL (NEGATIVE); URINE SPECIFIC GRAVITY 1.019
[2020-03-11 16:04] LABS: URINE AMPHETAMINES SCREEN NEGATIVE; URINE BARBITURATES SCREEN NEGATIVE; URINE BENZODIAZEPINES SCREEN NEGATIVE; URINE COCAINE SCREEN NEGATIVE; URINE MARIJUANA (THC) SCREEN NEGATIVE; URINE METHADONE SCREEN NEGATIVE; URINE PHENCYCLIDINE SCREEN NEGATIVE
[2020-03-11] MEDS ORDERED: POTASSIUM CHLORIDE 20 MEQ PACKET PO ONE (16:06)
[2020-03-11] MEDS ORDERED: POTASSI CL 20 MEQ/50 ML RIDER 20 MEQ/50 ML RTUPB IV ONE (16:06)
--- NOTE | 2020-03-11 16:15 | ER Document Report ---
ED General - General Chief Complaint: Fainting Stated Complaint: FALL/RIGHT SIDE HIP PAIN Time Seen by Provider: 03/11/20 12:51 Primary Care Provider: SNEHAL VERA MD [Primary Care Provider] - Follow up as needed TRAVEL OUTSIDE OF THE [place] IN LAST 30 DAYS: No - HPI Notes: Chief complaint: Fall and injury to right hip History of present illness: 59-year-old female patient with history of hypertension and schizophrenia followed by Dr. Vera who states that she has had weakness of her legs over several days and she apparently stumbled and fell in her kitchen last night and remained on the floor for an extended period of time because she was not able to get up without assistance. She is brought to the emergency department today and says that after she was helped up she was able to stand with the use of a cane which she uses from time to time but she does still have pain in the hip. She says she had had some diarrhea several days ago. She denies any vomiting. She denies any fever. She denies dysuria. We note that the patient was previously admitted within the last year by Dr. Vera with weakness and a presyncopal episode associated with electrolyte disturbances. This was felt to be multifactorial but primarily related to her diuretic medication. - Related Data Allergies/Adverse Reactions: No Known Allergies Allergy (Verified 03/11/20 12:57) Past Medical History - General Information source: Patient, [facility] Records - Social History Smoking Status: Former Smoker Chew tobacco use (# tins/day): No Frequency of alcohol use: None Drug Abuse: None Family History: Arthritis, CAD, CVA, DM, Hyperlipidemia, Hypertension. denies: COPD, Malignancy, Thyroid Disfunction Patient has homicidal ideation: No - Past Medical History Cardiac Medical History: Reports: Hx Hypertension Denies: Hx Atrial Fibrillation, Hx Congestive Heart Failure, Hx Coronary Artery Disease, Hx Heart Attack, Hx Hypercholesterolemia, Hx Peripheral Vascular Disease, Hx Heart Murmur Pulmonary Medical History: Reports: Hx Asthma - MILD Denies: Hx Bronchitis, Hx COPD, Hx Pneumonia Neurological Medical History: Reports: Hx Migraine, Hx Seizures - OVER 20YRS AGO ONLY ONCE. Denies: Hx Cerebrovascular Accident Renal/ Medical History: Reports: Hx Kidney Stones. Denies: Hx Peritoneal Dialysis GI Medical History: Reports: Hx Gastroesophageal Reflux Disease. Denies: Hx Crohn's Disease, Hx Hepatitis, Hx Hiatal Hernia Musculoskeletal Medical History: Denies Hx Arthritis, Denies Hx Fibromyalgia, Reports Hx Musculoskeletal Deformity, Reports Hx Musculoskeletal Trauma Psychiatric Medical History: Reports: Hx Anxiety, Hx Bipolar Disorder, Hx Depression, Hx Schizophrenia Denies: Hx Post Traumatic Stress Disorder Traumatic Medical History: Reports: Hx Fractures - RT ankle ,denies sugery, reports cast application only Infectious Medical History: Denies: Hx Hepatitis Past Surgical History: Reports: Hx Abdominal Surgery, Hx Appendectomy - 1993, "emergency", Hx Hysterectomy, Hx Nose Surgery, Hx Orthopedic Surgery - right patella replacement, Other - Cataracts. Denies: Hx Section, Hx Cholecystectomy, Hx Colostomy, Hx Coronary Artery Bypass Graft, Hx Gastric Bypass Surgery, Hx Herniorrhaphy, Hx Mastectomy, Hx Pacemaker, Hx Tonsillectomy, Hx Tubal Ligation - Immunizations Immunizations up to date: No Hx Diphtheria, Pertussis, Tetanus Vaccination: Yes Review of Systems - Review of Systems Notes: Constitutional: Negative for fever. HENT: Negative for sore throat. Eyes: Negative for visual changes. Cardiovascular: Negative for chest pain. Respiratory: Negative for shortness of breath. Gastrointestinal: As per HPI. Genitourinary: Negative for dysuria. Musculoskeletal: As per HPI. Skin: Negative for rash. Neurological: Negative for headaches, focal weakness or numbness. 10 point ROS negative except as marked above and in HPI. Physical Exam - Vital signs Vitals: Temp Pulse Resp BP Pulse Ox 97.6 F 92 16 90/61 L 99 03/11/20 12:50 03/11/20 12:50 03/11/20 12:50 03/11/20 12:50 03/11/20 12:50 - Notes Notes: GENERAL: Well-developed well-nourished appearing in no acute distress. SKIN: Good turgor no rashes. HEAD: Normocephalic atraumatic. EYES: PERRLA. EOMI. Conjunctivae and sclerae clear. EARS: CANALS AND TMS CLEAR. NOSE: CLEAR. MOUTH: Moist mucosa. Good dentition. No stridor or edema. No drooling. NECK: Supple. No masses or thyromegaly. No adenopathy. Carotids 2+ without bruits. No JVD. BACK: Symmetrical without tenderness. CHEST: Respirations unlabored. Breath sounds clear and symmetrical. HEART: Regular rhythm. No murmur gallop or rub. ABDOMEN: Soft nontender without masses, organomegaly or rebound. Bowel sounds normally active. No bruits. GENITALIA: Deferred. EXTREMITIES: Mild tenderness at lateral aspect of right hip. Good range of motion. No shortening or abnormal rotation. No edema. No calf tenderness. Cap refill less than 1.5 seconds. Dorsalis pedis and posterior tibial pulses 3+ and symmetrical. NEUROLOGICAL: GCS 15. Alert and oriented x3. Normal gait. Fluent speech. Cranial nerves II through XII intact. Sensorimotor and cerebellar normal. No rmal tone. PSYCHIATRIC: Appropriate affect. Course - Re-evaluation Re-evalutation: 03/11/20 20:02 Patient received IV and oral potassium. Imaging of the hip was normal. She is walking bearing weight without difficulty. She is not orthostatic. Head scan negative. C-spine negative. Troponin is normal. EKG showed no acute changes. Findings discussed with her private attending Dr. Vera who requests that we discharge her home and he will see her tomorrow morning in the office. - Vital Signs Vital signs: Temp Pulse Resp BP Pulse Ox 97.6 F 92 27 H 101/65 100 03/11/20 12:50 03/11/20 12:50 03/11/20 18:00 03/11/20 14:25 03/11/20 17:00 - Laboratory Result Diagrams: 03/11/20 13:30 03/11/20 13:30 Laboratory results interpreted by me: 03/11/20 03/11/20 03/11/20 13:30 13:30 13:30 RDW 15.1 H Lymph % (Auto) 10.8 L Absolute Neuts (auto) 8.8 H Seg Neutrophils % 84.4 H Sodium 128.7 L Potassium 2.8 L* Chloride 88 L Glucose 116 H Urine Protein 30 H Urine Urobilinogen 2.0 H Ur Leukocyte Esterase MODERATE H - Diagnostic Test Radiology reviewed: Reports reviewed - Head CT negative per radiologist. C- spine CT shows degenerative changes only per radiologist. X-ray of right hip shows no fracture or dislocation per radiologist. Discharge - Discharge Clinical Impression: Syncope, Hypokalemia Condition: Stable Disposition: HOME, SELF-CARE Additional Instructions: Hypokalemia You have an abnormally decreased level of serum potassium. Hypokalemia may cause weakness, fatigue, or heart rhythm abnormalities. Sometimes there are no symptoms at all. Usually, low serum potassium is due to taking diuretics (water pills). It can also be due to excessive vomiting or diarrhea. If no obvious cause is evident, further evaluation will be necessary. Treatment is usually oral potassium supplements. Take these exactly as prescribed. You may also want to select foods which are naturally high in potassium -- fruits (such as bananas, cantaloupe, grapes, oranges, prunes, tomatoes), fresh vegetables (potatoes, spinach, beans, peas), orange or tomato juice, tomato pasta sauce, milk, fish (halibut, tuna, salmon, monica) A follow-up blood test is usually performed to assure that the potassium is returning to normal. Call the physician if you suffer severe weakness, muscle twitching or cramping, palpitations (pounding or irregular heartbeat), or any other new or alarming symptoms. Increase oral fluids. Take medication as prescribed. Continue your other usual medications. Return here as needed for new or worsening symptoms: Pain that is worsening or unimproved Uncontrolled vomiting High fever or shaking chills Overall worsening See Dr. Vera in the office tomorrow. Prescriptions: Potassium Chloride 20 meq PO BID 7 Days #14 [email or web address] Referrals: SNEHAL VERA MD [Primary Care Provider] - Follow up as needed
[2020-03-11 21:01] VITALS: BP 121/79
== END 2020-03-11 21:15 | disposition home or self-care (01) ==
LOC: ER 12:42
DX: R55 Syncope and collapse (principal); E87.6 Hypokalemia; M25.551 Pain in right hip; W01.0XXA Fall on same level from slipping, tripping and stumbling without subsequent striking against object, initial encounter; Y92.000 Kitchen of unspecified non-institutional (private) residence as the place of occurrence of the external cause; I10 Essential (primary) hypertension; F20.9 Schizophrenia, unspecified; Z87.442 Personal history of urinary calculi
CPT/HCPCS: 93005; 99285; 96360; 96361; 86900; 86901; 36415; 86850; 80307 ×2; 82550; 83735; 84132; 85025; 85610; 85730; 80053; 81001; 84484; 71045; 73502; 70450; 72125; 93010; J3480; J7030; J3490

== ENCOUNTER 2020-03-21 10:03 | Inpatient (IN) | payer SELFPAY ==
[2020-03-21 11:53] LABS: ABSOLUTE LYMPHOCYTES (AUTO) 0.9 10^3/uL (0.5-4.7); ABSOLUTE MONOCYTES (AUTO) 0.4 10^3/uL (0.1-1.4); ABSOLUTE NEUT (AUTO) 4.7 10^3/uL (1.7-8.2); BASOPHILS % (AUTO) 0.3 % (0-2); HEMATOCRIT 36.3 % (36.0-47.0); HEMOGLOBIN 12.8 g/dL (12.0-15.5); LYMPHOCYTES % (AUTO) 15.1 % (13-45); MEAN CORPUSCULAR HEMOGLOBIN 29.6 pg (27.0-33.4); MEAN CORPUSCULAR HGB CONC 35.3 g/dL (32.0-36.0); MEAN CORPUSCULAR VOLUME 84 fl (80-97); MONOCYTES % (AUTO) 6.1 % (3-13); PLATELET COUNT 306 10^3/uL (150-450); RED BLOOD COUNT 4.34 10^6/uL (3.72-5.28); RED CELL DISTRIBUTION WIDTH 14.5 % (11.5-14.0); SEGMENTED NEUTROPHILS % (AUTO) 78.5 % (42-78); TOTAL CELLS COUNTED % (AUTO) 100 %
[2020-03-21 12:08] LABS: ALBUMIN 3.5 g/dL (3.5-5.0); ALKALINE PHOSPHATASE 115 U/L (38-126); ANION GAP 12 (5-19); ASPARTATE AMINO TRANSFERASE 54 U/L (14-36); BILIRUBIN,DIRECT 0.4 mg/dL (0.0-0.4); BILIRUBIN,TOTAL 0.8 mg/dL (0.2-1.3); BLOOD UREA NITROGEN 13 mg/dL (7-20); CALCIUM 8.4 mg/dL (8.4-10.2); CARBON DIOXIDE 32 mmol/L (22-30); CHLORIDE 84 mmol/L (98-107); GLUCOSE 93 mg/dL (75-110); TOTAL PROTEIN 7.8 g/dL (6.3-8.2)
[2020-03-21 12:14] LABS: POTASSIUM 2.2 mmol/L (3.6-5.0)
[2020-03-21] MEDS ORDERED: POTASSIUM CHLORIDE 10 MEQ TABLET.ER PO ONE ×4 (13:01→23:59)
[2020-03-21] MEDS ORDERED: NORMAL SALINE 1000 ML 1,000 ML IV ONE (13:02)
--- NOTE | 2020-03-21 16:00 | ER Document Report ---
Entered by MARIBEL MONAE SCRIBE 03/21/20 1312 Acting as scribe for:JERRI GUILLEN MD ED General - General Chief Complaint: Diarrhea Stated Complaint: WEAKNESS Time Seen by Provider: 03/21/20 11:41 Mode of Arrival: Medic Information source: Patient Notes: This 60 year old female patient with a history of hypokalemia and hyponatremia brought in by EMS from home presents to the ED today with complaints of generalized weakness and diarrhea. Per EMS, patient was seen here about x10 days ago for the same complaint and states she has not gotten any better. Patient states that while walking this morning, her legs felt weak and she fell forward. Denies hitting her head, LOC, or pain anywhere else. Dr. Sanders is her PCP. TRAVEL OUTSIDE OF THE [place] IN LAST 30 DAYS: No - Related Data Allergies/Adverse Reactions: No Known Allergies Allergy (Verified 03/11/20 12:57) Past Medical History - General Information source: Transfer Record - Social History Smoking Status: Former Smoker Chew tobacco use (# tins/day): No Smoking Education Provided: No Frequency of alcohol use: None Drug Abuse: None Family History: Reviewed & Not Pertinent, Arthritis, CAD, CVA, DM, Hyperlipidemia, Hypertension Patient has homicidal ideation: No - Past Medical History Cardiac Medical History: Reports: Hx Hypertension Pulmonary Medical History: Reports: Hx Asthma - MILD Neurological Medical History: Reports: Hx Migraine, Hx Seizures - OVER 20YRS AGO ONLY ONCE Renal/ Medical History: Reports: Hx Kidney Stones GI Medical History: Reports: Hx Gastroesophageal Reflux Disease Musculoskeletal Medical History: Reports Hx Musculoskeletal Deformity, Reports Hx Musculoskeletal Trauma Psychiatric Medical History: Reports: Hx Anxiety, Hx Bipolar Disorder, Hx Depression, Hx Schizophrenia Traumatic Medical History: Reports: Hx Fractures - RT ankle ,denies sugery, reports cast application only Past Surgical History: Reports: Hx Abdominal Surgery, Hx Appendectomy - 1993, "emergency", Hx Hysterectomy, Hx Nose Surgery, Hx Orthopedic Surgery - right patella replacement, Other - Cataracts - Immunizations Immunizations up to date: No Hx Diphtheria, Pertussis, Tetanus Vaccination: Yes Review of Systems - Review of Systems Constitutional: See HPI, Weakness EENT: No symptoms reported Cardiovascular: No symptoms reported Respiratory: No symptoms reported Gastrointestinal: See HPI, Diarrhea Genitourinary: No symptoms reported Female Genitourinary: No symptoms reported Musculoskeletal: See HPI. denies: Muscle pain Skin: No symptoms reported Hematologic/Lymphatic: No symptoms reported Neurological/Psychological: See HPI. denies: Lost consciousness, Headaches -: Yes All other systems reviewed and negative Physical Exam - Vital signs Vitals: Temp 97.7 F 03/21/20 10:03 - General General appearance: Alert In distress: None - HEENT Head: Normocephalic, Atraumatic Eyes: Normal Pupils: PERRL - Respiratory Respiratory status: No respiratory distress Chest status: Nontender Breath sounds: Normal Chest palpation: Normal - Cardiovascular Rhythm: Regular Heart sounds: Normal auscultation, S1 appreciated, S2 appreciated Murmur: No Friction rub: No Gallop: None auscultated - Abdominal Inspection: Normal Distension: No distension Bowel sounds: Normal Tenderness: Nontender - Abdomen soft Organomegaly: No organomegaly - Back Back: Normal, Nontender - Extremities General upper extremity: Normal inspection General lower extremity: Normal inspection. 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 - Vital Signs Vital signs: Temp Pulse Resp BP Pulse Ox 97.8 F 101 H 27 H 108/63 99 03/21/20 17:02 03/21/20 10:30 03/21/20 17:02 03/21/20 17:02 03/21/20 17:02 03/21/20 18:31 Signs stable pulse 101. - Laboratory Result Diagrams: 03/21/20 11:22 03/21/20 11:22 Laboratory results interpreted by me: 03/21/20 03/21/20 11:22 11:22 RDW 14.5 H Seg Neutrophils % 78.5 H Sodium 128.4 L Potassium 2.2 L* Chloride 84 L Carbon Dioxide 32 H AST 54 H 03/21/20 18:31 Patient has a potassium of 2.2. Mildly elevated AST CO2 and chloride. Chloride is low. 03/21/20 18:33 Laboratories reported positive for C. difficile and stool. This was discussed with Dr. Nolan. 03/21/20 18:33 03/21/20 11:22 03/21/20 11:22 MCV 84 fl (80-97) 03/21/20 11:22 MCH 29.6 pg (27.0-33.4) 03/21/20 11:22 MCHC 35.3 g/dL (32.0-36.0) 03/21/20 11:22 RDW 14.5 % (11.5-14.0) H 03/21/20 11:22 Seg Neutrophils % 78.5 % (42-78) H 03/21/20 11:22 Chloride 84 mmol/L (98-107) L 03/21/20 11:22 Carbon Dioxide 32 mmol/L (22-30) H 03/21/20 11:22 Anion Gap 12 (5-19) 03/21/20 11:22 Est GFR ( Amer) > 60 (>60) 03/21/20 11:22 Glucose 93 mg/dL (75-110) 03/21/20 11:22 Calcium 8.4 mg/dL (8.4-10.2) 03/21/20 11:22 Magnesium 2.2 mg/dL (1.6-2.3) 03/21/20 11:22 Total Bilirubin 0.8 mg/dL (0.2-1.3) 03/21/20 11:22 AST 54 U/L (14-36) H 03/21/20 11:22 Alkaline Phosphatase 115 U/L (38-126) 03/21/20 11:22 Total Protein 7.8 g/dL (6.3-8.2) 03/21/20 11:22 Albumin 3.5 g/dL (3.5-5.0) 03/21/20 11:22 Stl C.difficile Tox PCR POSITIVE (NEGATIVE) 03/21/20 15:35 - Diagnostic Test Radiology reviewed: Image reviewed, Reports reviewed Radiology results interpreted by me: 03/21/20 18:[address] of head and CT of abdomen and pelvis. Discharge - Discharge Clinical Impression: Hypokalemia, Accident due to mechanical fall without injury, Stool culture positive for Clostridioides difficile Condition: Fair Disposition: ADMITTED INPATIENT Admitting Provider: [facility] Admitted: IMLAYNE I personally performed the services described in the documentation, reviewed and edited the documentation which was dictated to the scribe in my presence, and it accurately records my words and actions.
[2020-03-21 16:46] LABS: C DIFFICILE GDH POSITIVE (NEGATIVE)
[2020-03-21] MEDS ORDERED: ONDANSETRON HCL INJ/PF 4 MG/2 ML SDV IV PRN (17:29)
[2020-03-21] MEDS: POTASSI CL 20 MEQ/50 ML RIDER 20 MEQ/50 ML RTUPB IV SCH ×2 (17:49→20:14)
--- NOTE | 2020-03-21 18:48 | RADIOLOGY REPORT (SQ) ---
EXAM DESCRIPTION: CT HEAD WITHOUT IMAGES COMPLETED DATE/TIME: 03/21/2020 6:29 pm REASON FOR STUDY: acidental fall COMPARISON: 02/04/2020 TECHNIQUE: Axial images acquired through the brain without intravenous contrast. Images reviewed wi th bone, brain and subdural windows. Additional sagittal and coronal reconstructions were generated. Images stored on PACS. All CT scanners at this facility use dose modulation, iterative reconstruction, and/or weight based d osing when appropriate to reduce radiation dose to as low as reasonably achievable (ALARA). [facility]: Dose Right [facility]: CareDose [facility]: Dose Right [facility]: Teradose 4D [facility]: Smart [employer] RADIATION DOSE: CT Rad equipment meets quality standard of care and radiation dose reduction techniq ues were employed. CTDIvol: 53.2 mGy. DLP: 884 mGy-cm. mGy. LIMITATIONS: None. FINDINGS: VENTRICLES: Normal size and contour. CEREBRUM: No masses. No hemorrhage. No midline shift. No evidence for acute infarction. Normal gra y/white matter differentiation. No areas of low density in the white matter. CEREBELLUM: No masses. No hemorrhage. No alteration of density. No evidence for acute infarction. EXTRAAXIAL SPACES: No fluid collections. No masses. ORBITS AND GLOBE: No intra- or extraconal masses. Normal contour of globe without masses. CALVARIUM: No fracture. PARANASAL SINUSES: No fluid or mucosal thickening. SOFT TISSUES: No mass or hematoma. OTHER: No other significant finding. IMPRESSION: NORMAL BRAIN CT WITHOUT CONTRAST. EVIDENCE OF ACUTE STROKE: NO. COMMENT: Quality ID # 436: Final reports with documentation of one or more dose reduction techniques (e.g., Automated exposure control, adjustment of the mA and/or kV according to patient size, use of iterative reconstruction technique) TECHNICAL DOCUMENTATION: JOB ID: [id number] 2010 [employer]- All Rights Reserved Reading location - IP/workstation name: [email or web address]
[2020-03-21] MEDS ORDERED: POTASSI CL 20 MEQ/50 ML RIDER 20 MEQ/50 ML RTUPB IV SCH (20:15)
--- NOTE | 2020-03-21 20:20 | EKG REPORT ---
SEVERITY:- ABNORMAL ECG - SINUS TACHYCARDIA APCs AND VPCs PROBABLE LEFT ATRIAL ABNORMALITY REPOL ABNRM SUGGESTS ISCHEMIA, ANT-LAT LEADS : Confirmed by: Anabelle Orozco 21-Mar-2020 20:19:43
[2020-03-21] MEDS: VANCOMYCIN HCL INJ 500 MG VIAL PO SCH (20:26)
[2020-03-21] MEDS: FAMOTIDINE 20 MG TABLET PO SCH (22:45)
[2020-03-21] MEDS: POTASSI CL 40 MEQ/NS 1L 1,000 ML IV PRN (22:47)
--- NOTE | 2020-03-21 23:31 | RADIOLOGY REPORT (SQ) ---
EXAM DESCRIPTION: CT ABDOMEN PELVIS WITHOUT IV CONTRAST COMPLETED DATE/TME: 03/21/2020 00:00 CLINICAL HISTORY: 60 years, Female, abd pain COMPARISON: August 26, 2015. TECHNIQUE: Non-IV contrast images the abdomen and pelvis were obtained. There is a small amount of oral contrast material or other high density material within the stomach. Images stored on PACS. All CT scanners at this facility use dose modulation, iterative reconstruction, and/or weight based dosing when appropriate to reduce radiation dose to as low as reasonably achievable (ALARA). [facility]: Dose Right [facility]: CareDose [facility]: Dose Right [facility]: Teradose 4D [facility]: eCareDiary LIMITATIONS: None. FINDINGS: Visualized lung bases are clear. There is no urinary tract calculus or hydronephrosis. There is a 15 mm hypodensity lower pole left kidney with an internal Hounsfield density of 2, consistent with a cyst. This was present on the prior study and previously measured 10 mm. There is diffuse fatty infiltration of the liver. Patient is status post interval cholecystectomy. No definite inflammatory changes, masses, or abnormal collections are otherwise seen. There is no lymphadenopathy. The appendix is nonvisualized. There is a reported history of previous appendectomy. Arterial catheter patient are noted. There is no abdominal aortic aneurysm. Disc space narrowing and apparent disc bulge are identified at L4-L5 producing mild to moderate canal stenosis and moderate bilateral foraminal stenosis. No acute or suspicious bony abnormality is seen. IMPRESSION: Chronic appearing findings as above. No acute abnormality is seen. TECHNICAL DOCUMENTATION: Quality ID # 436: Final reports with documentation of one or more dose reduction techniques (e.g., Automated exposure control, adjustment of the mA and/or kV according to patient size, use of iterative reconstruction technique) copyright 2011 [employer]- All Rights Reserved
[2020-03-22] MEDS: VANCOMYCIN HCL INJ 500 MG VIAL PO SCH ×5 (01:57→23:58)
[2020-03-22 05:01] LABS: APPEARANCE,URINE SLIGHTLY-CLOUDY; BILIRUBIN,URINE NEGATIVE (NEGATIVE); COLOR,URINE AMBER; GLUCOSE, URINE NEGATIVE (NEGATIVE); KETONES,URINE 20 mg/dL (NEGATIVE); LEUKOCYTE ESTERASE,URINE MODERATE (NEGATIVE); NITRITE,URINE NEGATIVE (NEGATIVE); PROTEIN,URINE 30 mg/dL (NEGATIVE)
[2020-03-22 06:16] LABS: ANION GAP 9 (5-19); BLOOD UREA NITROGEN 14 mg/dL (7-20); CALCIUM 7.7 mg/dL (8.4-10.2); CARBON DIOXIDE 25 mmol/L (22-30); CHLORIDE 95 mmol/L (98-107); GLUCOSE 96 mg/dL (75-110)
[2020-03-22 06:24] LABS: POTASSIUM 3.2 mmol/L (3.6-5.0)
[2020-03-22] MEDS: FAMOTIDINE 20 MG TABLET PO SCH ×2 (09:36→21:55)
[2020-03-22] MEDS: ENOXAPARIN SODIUM INJ 40 MG/0.4 ML DISP.SYRIN SUBCUT SCH (09:40)
[2020-03-22] MEDS: POTASSI CL 40 MEQ/NS 1L 1,000 ML IV PRN ×2 (09:40→18:49)
--- NOTE | 2020-03-22 20:41 | PDOC PROGRESS REPORT ---
Subjective Progress Note for:: 03/22/20 Subjective:: Patient seen by the bedside, she was admitted for C. difficile colitis with electrolyte derangement Reason For Visit: HYPOKALEMIA Physical Exam Vital Signs: Temp Pulse Resp BP Pulse Ox 97.6 F 111 H 18 102/65 93 03/22/20 15:21 03/22/20 15:21 03/22/20 15:21 03/22/20 15:21 03/22/20 15:21 Intake & Output 03/21/20 03/22/20 03/23/20 06:59 06:59 06:59 Intake Total 450 2155 Balance 450 2155 Weight 83.7 kg General appearance: PRESENT: no acute distress Respiratory exam: PRESENT: clear to auscultation melisa Cardiovascular exam: PRESENT: +S1, +S2 GI/Abdominal exam: PRESENT: soft Neurological exam: PRESENT: alert Results Laboratory Results: 03/21/20 11:22 03/22/20 05:32 03/22/20 03/22/20 03:43 05:32 Sodium 128.6 L Potassium 3.2 L D Chloride 95 L Carbon Dioxide 25 Anion Gap 9 BUN 14 Creatinine 0.66 Est GFR ( Amer) > 60 Glucose 96 Calcium 7.7 L Urine Color CARLOS Urine Appearance SLIGHTLY-CLOUDY Urine pH 6.0 Ur Specific [place] 1.020 Urine Protein 30 H Urine Glucose (UA) NEGATIVE Urine Ketones 20 H Urine Blood NEGATIVE Urine Nitrite NEGATIVE Ur Leukocyte Esterase MODERATE H Urine WBC (Auto) 1 Urine RBC (Auto) 1 Impressions: Abdomen/Pelvis CT 03/21/20 00:00 IMPRESSION: Chronic appearing findings as above. No acute abnormality is seen. TECHNICAL DOCUMENTATION: Quality ID # 436: Final reports with documentation of one or more dose reduction techniques (e.g., Automated exposure control, adjustment of the mA and/or kV according to patient size, use of iterative reconstruction technique) copyright 2011 [employer]- All Rights Reserved Head CT 03/21/20 15:59 IMPRESSION: NORMAL BRAIN CT WITHOUT CONTRAST. EVIDENCE OF ACUTE STROKE: NO. Assessment & Plan - Diagnosis (1) Clostridium difficile enterocolitis Is this a current diagnosis for this admission?: Yes Plan: Continue vancomycin (2) Hypokalemia Is this a current diagnosis for this admission?: Yes (3) Hyponatremia Is this a current diagnosis for this admission?: Yes - Time Time Spent with patient: 35 or more minutes Level of Care: IMCU Medications reviewed and adjusted accordingly: Yes
[2020-03-23] MEDS: POTASSI CL 40 MEQ/NS 1L 1,000 ML IV PRN ×2 (04:42→16:09)
[2020-03-23] MEDS: VANCOMYCIN HCL INJ 500 MG VIAL PO SCH ×3 (05:48→17:08)
[2020-03-23] MEDS: ENOXAPARIN SODIUM INJ 40 MG/0.4 ML DISP.SYRIN SUBCUT SCH (09:22)
[2020-03-23] MEDS: FAMOTIDINE 20 MG TABLET PO SCH ×2 (09:22→22:17)
[2020-03-23] MEDS: ACETAMINOPHEN 325 MG TABLET PO PRN (16:13)
[2020-03-23 18:10] LABS: HEMATOCRIT 33.8 % (36.0-47.0); HEMOGLOBIN 11.8 g/dL (12.0-15.5); MEAN CORPUSCULAR HEMOGLOBIN 29.8 pg (27.0-33.4); MEAN CORPUSCULAR HGB CONC 34.9 g/dL (32.0-36.0); MEAN CORPUSCULAR VOLUME 86 fl (80-97); PLATELET COUNT 222 10^3/uL (150-450); RED BLOOD COUNT 3.96 10^6/uL (3.72-5.28); RED CELL DISTRIBUTION WIDTH 15.2 % (11.5-14.0)
[2020-03-23 18:22] LABS: ALBUMIN 2.4 g/dL (3.5-5.0); ALKALINE PHOSPHATASE 76 U/L (38-126); ANION GAP 5 (5-19); ASPARTATE AMINO TRANSFERASE 44 U/L (14-36); BILIRUBIN,DIRECT 0.4 mg/dL (0.0-0.4); BILIRUBIN,TOTAL 0.4 mg/dL (0.2-1.3); BLOOD UREA NITROGEN 5 mg/dL (7-20); CALCIUM 7.6 mg/dL (8.4-10.2); CARBON DIOXIDE 26 mmol/L (22-30); CHLORIDE 101 mmol/L (98-107); GLUCOSE 98 mg/dL (75-110); POTASSIUM 3.6 mmol/L (3.6-5.0); TOTAL PROTEIN 6.1 g/dL (6.3-8.2)
[2020-03-23 18:36] LABS: ABSOLUTE LYMPHOCYTES# (MANUAL) 0.7 10^3/uL (0.5-4.7); ABSOLUTE MONOCYTES # (MANUAL) 0.6 10^3/uL (0.1-1.4); ANISOCYTOSIS SLIGHT; BASOPHILS % (MANUAL) 0 % (0-2); EOSINOPHILS % (MANUAL) 0 % (0-6); LYMPHOCYTES % (MANUAL) 14 % (13-45); MONOCYTES % (MANUAL) 11 % (3-13); PLATELET COMMENT ADEQUATE; SEGMENTED NEUTROPHILS % (MAN) 75 % (42-78); TOTAL CELLS COUNTED 100
[2020-03-23 18:37] LABS: OVALOCYTES SLIGHT; POIKILOCYTOSIS SLIGHT
--- NOTE | 2020-03-23 21:52 | PDOC PROGRESS REPORT ---
Subjective Progress Note for:: 03/23/20 Subjective:: Patient seen by the bedside, Reason For Visit: HYPOKALEMIA Physical Exam Vital Signs: Temp Pulse Resp BP Pulse Ox 97.3 F 104 H 16 104/63 100 03/23/20 19:35 03/23/20 19:35 03/23/20 19:35 03/23/20 19:35 03/23/20 19:35 Intake & Output 03/22/20 03/23/20 03/24/20 06:59 06:59 06:59 Intake Total 450 3663 1989 Balance 450 3663 1989 Weight 83.7 kg 84.1 kg General appearance: PRESENT: no acute distress Eye exam: PRESENT: PERRLA Respiratory exam: PRESENT: clear to auscultation melisa Cardiovascular exam: PRESENT: +S1, +S2 GI/Abdominal exam: PRESENT: soft Neurological exam: PRESENT: alert Results Laboratory Results: 03/23/20 17:59 03/23/20 17:59 03/23/20 03/23/20 17:59 17:59 WBC 5.0 RBC 3.96 Hgb 11.8 L Hct 33.8 L MCV 86 MCH 29.8 MCHC 34.9 RDW 15.2 H Plt Count 222 Seg Neutrophils % Not Reportable Sodium 131.8 L Potassium 3.6 Chloride 101 Carbon Dioxide 26 Anion Gap 5 BUN 5 L Creatinine 0.56 Est GFR ( Amer) > 60 Glucose 98 Calcium 7.6 L Total Bilirubin 0.4 AST 44 H Alkaline Phosphatase 76 Total Protein 6.1 L Albumin 2.4 L 03/21/20 15:35 Stool - Stool - Final Impressions: Abdomen/Pelvis CT 03/21/20 00:00 IMPRESSION: Chronic appearing findings as above. No acute abnormality is seen. TECHNICAL DOCUMENTATION: Quality ID # 436: Final reports with documentation of one or more dose reduction techniques (e.g., Automated exposure control, adjustment of the mA and/or kV according to patient size, use of iterative reconstruction technique) copyright 2011 [employer]- All Rights Reserved Head CT 03/21/20 15:59 IMPRESSION: NORMAL BRAIN CT WITHOUT CONTRAST. EVIDENCE OF ACUTE STROKE: NO. Assessment & Plan - Diagnosis (1) Clostridium difficile enterocolitis Is this a current diagnosis for this admission?: Yes Plan: Continue vancomycin (2) Hypokalemia Is this a current diagnosis for this admission?: Yes (3) Hyponatremia Is this a current diagnosis for this admission?: Yes - Time Time Spent with patient: 25-34 minutes Level of Care: IMCU Anticipated discharge: Home - Inpatient Certification Based on my medical assessment, after consideration of the patient's comorbidities, presenting symptoms, or acuity I expect that the services needed warrant INPATIENT care.: No I certify that my determination is in accordance with my understanding of Medicare's requirements for reasonable and necessary INPATIENT services [42 CFR 412.3e].: No
[2020-03-24] MEDS: VANCOMYCIN HCL INJ 500 MG VIAL PO SCH ×5 (00:42→23:06)
[2020-03-24] MEDS: ACETAMINOPHEN 325 MG TABLET PO PRN ×3 (00:45→23:02)
[2020-03-24] MEDS: POTASSI CL 40 MEQ/NS 1L 1,000 ML IV PRN ×2 (02:06→12:31)
[2020-03-24] MEDS: FAMOTIDINE 20 MG TABLET PO SCH ×2 (09:19→21:20)
[2020-03-24] MEDS: ENOXAPARIN SODIUM INJ 40 MG/0.4 ML DISP.SYRIN SUBCUT SCH (09:19)
--- NOTE | 2020-03-24 16:26 | PDOC PROGRESS REPORT ---
Subjective Progress Note for:: 03/24/20 Subjective:: Patient seen by the bedside, she is still having diarrhea Reason For Visit: HYPOKALEMIA Physical Exam Vital Signs: Temp Pulse Resp BP Pulse Ox 97.7 F 91 14 96/66 L 97 03/24/20 15:24 03/24/20 15:24 03/24/20 15:24 03/24/20 15:24 03/24/20 12:00 Intake & Output 03/23/20 03/24/20 03/25/20 06:59 06:59 06:59 Intake Total 3663 4035 1550 Balance 3663 4035 1550 Weight 84.1 kg 91.8 kg General appearance: PRESENT: no acute distress Eye exam: PRESENT: PERRLA Cardiovascular exam: PRESENT: +S1, +S2 GI/Abdominal exam: PRESENT: soft Neurological exam: PRESENT: alert Results Laboratory Results: 03/23/20 17:59 03/23/20 17:59 03/23/20 03/23/20 17:59 17:59 WBC 5.0 RBC 3.96 Hgb 11.8 L Hct 33.8 L MCV 86 MCH 29.8 MCHC 34.9 RDW 15.2 H Plt Count 222 Seg Neutrophils % Not Reportable Sodium 131.8 L Potassium 3.6 Chloride 101 Carbon Dioxide 26 Anion Gap 5 BUN 5 L Creatinine 0.56 Est GFR ( Amer) > 60 Glucose 98 Calcium 7.6 L Total Bilirubin 0.4 AST 44 H Alkaline Phosphatase 76 Total Protein 6.1 L Albumin 2.4 L 03/21/20 15:35 Stool - Stool - Final 03/21/20 15:35 Stool - Stool Stool Culture - Final NO SALMONELLA, SHIGELLA, CAMPYLOBACTER, OR E.COLI 0157 RECOVERED. NEGATIVE FOR SHIGA TOXINS 1&2. 03/22/20 03:43 Clean Catch Midstream Urine Culture - Final Mixed Skin. Possible Pathogen Impressions: Abdomen/Pelvis CT 03/21/20 00:00 IMPRESSION: Chronic appearing findings as above. No acute abnormality is seen. TECHNICAL DOCUMENTATION: Quality ID # 436: Final reports with documentation of one or more dose reduction techniques (e.g., Automated exposure control, adjustment of the mA and/or kV according to patient size, use of iterative reconstruction technique) copyright 2011 [employer]- All Rights Reserved Head CT 03/21/20 15:59 IMPRESSION: NORMAL BRAIN CT WITHOUT CONTRAST. EVIDENCE OF ACUTE STROKE: NO. Assessment & Plan - Diagnosis (1) Clostridium difficile enterocolitis Is this a current diagnosis for this admission?: Yes Plan: Continue vancomycin (2) Hypokalemia Is this a current diagnosis for this admission?: Yes (3) Hyponatremia Is this a current diagnosis for this admission?: Yes - Time Time Spent with patient: 25-34 minutes Level of Care: IMCU Medications reviewed and adjusted accordingly: Yes Anticipated discharge: Home Anticipated DC Timeframe: within 36 hours
[2020-03-24 17:12] LABS: ALBUMIN 2.5 g/dL (3.5-5.0); ALKALINE PHOSPHATASE 81 U/L (38-126); ASPARTATE AMINO TRANSFERASE 42 U/L (14-36); BILIRUBIN,DIRECT 0.3 mg/dL (0.0-0.4); BILIRUBIN,TOTAL 0.4 mg/dL (0.2-1.3); BLOOD UREA NITROGEN 4 mg/dL (7-20); CALCIUM 7.8 mg/dL (8.4-10.2); GLUCOSE 92 mg/dL (75-110); POTASSIUM 3.9 mmol/L (3.6-5.0); TOTAL PROTEIN 6.2 g/dL (6.3-8.2)
[2020-03-24 17:18] LABS: ANION GAP 6 (5-19); CARBON DIOXIDE 27 mmol/L (22-30); CHLORIDE 102 mmol/L (98-107)
[2020-03-25] MEDS: VANCOMYCIN HCL INJ 500 MG VIAL PO SCH ×3 (05:35→18:15)
[2020-03-25] MEDS: POTASSI CL 40 MEQ/NS 1L 1,000 ML IV PRN ×2 (05:38→18:15)
[2020-03-25 07:15] LABS: ALBUMIN 2.3 g/dL (3.5-5.0); ALKALINE PHOSPHATASE 76 U/L (38-126); ANION GAP 6 (5-19); ASPARTATE AMINO TRANSFERASE 34 U/L (14-36); BILIRUBIN,DIRECT 0.3 mg/dL (0.0-0.4); BILIRUBIN,TOTAL 0.4 mg/dL (0.2-1.3); BLOOD UREA NITROGEN 5 mg/dL (7-20); CALCIUM 7.6 mg/dL (8.4-10.2); CARBON DIOXIDE 23 mmol/L (22-30); CHLORIDE 104 mmol/L (98-107); GLUCOSE 84 mg/dL (75-110); POTASSIUM 4.3 mmol/L (3.6-5.0); TOTAL PROTEIN 5.8 g/dL (6.3-8.2)
[2020-03-25] MEDS: ENOXAPARIN SODIUM INJ 40 MG/0.4 ML DISP.SYRIN SUBCUT SCH (10:46)
[2020-03-25] MEDS: FAMOTIDINE 20 MG TABLET PO SCH ×2 (10:46→22:02)
[2020-03-25] MEDS: ACETAMINOPHEN 325 MG TABLET PO PRN ×2 (11:31→22:08)
--- NOTE | 2020-03-25 20:27 | PDOC PROGRESS REPORT ---
Subjective Progress Note for:: 03/25/20 Subjective:: Patient seen by the bedside. Reason For Visit: HYPOKALEMIA Physical Exam Vital Signs: Temp Pulse Resp BP Pulse Ox 97.5 F 97 15 113/65 92 03/25/20 12:16 03/25/20 14:00 03/25/20 12:16 03/25/20 12:16 03/25/20 12:16 Intake & Output 03/24/20 03/25/20 03/26/20 06:59 06:59 06:59 Intake Total 4035 3800 2067 Balance 4035 3800 2067 Weight 91.8 kg 90.2 kg General appearance: PRESENT: no acute distress Eye exam: PRESENT: PERRLA Respiratory exam: PRESENT: clear to auscultation melisa Cardiovascular exam: PRESENT: +S1, +S2 GI/Abdominal exam: PRESENT: soft Neurological exam: PRESENT: alert Results Laboratory Results: 03/23/20 17:59 03/25/20 05:34 03/25/20 05:34 Sodium 132.9 L Potassium 4.3 Chloride 104 Carbon Dioxide 23 Anion Gap 6 BUN 5 L Creatinine 0.53 Est GFR ( Amer) > 60 Glucose 84 Calcium 7.6 L Total Bilirubin 0.4 AST 34 Alkaline Phosphatase 76 Total Protein 5.8 L Albumin 2.3 L Impressions: Abdomen/Pelvis CT 03/21/20 00:00 IMPRESSION: Chronic appearing findings as above. No acute abnormality is seen. TECHNICAL DOCUMENTATION: Quality ID # 436: Final reports with documentation of one or more dose reduction techniques (e.g., Automated exposure control, adjustment of the mA and/or kV according to patient size, use of iterative reconstruction technique) copyright 2011 [employer]- All Rights Reserved Head CT 03/21/20 15:59 IMPRESSION: NORMAL BRAIN CT WITHOUT CONTRAST. EVIDENCE OF ACUTE STROKE: NO. Assessment & Plan - Diagnosis (1) Clostridium difficile enterocolitis Is this a current diagnosis for this admission?: Yes Plan: Continue vancomycin (2) Hypokalemia Is this a current diagnosis for this admission?: Yes Plan: Resolved (3) Hyponatremia Is this a current diagnosis for this admission?: Yes - Time Time Spent with patient: 25-34 minutes Level of Care: IMCU Medications reviewed and adjusted accordingly: Yes Anticipated discharge: Home Anticipated DC Timeframe: within 36 hours
[2020-03-26] MEDS: VANCOMYCIN HCL INJ 500 MG VIAL PO SCH ×4 (00:30→18:18)
[2020-03-26 05:36] LABS: HEMATOCRIT 35.1 % (36.0-47.0); HEMOGLOBIN 11.8 g/dL (12.0-15.5); MEAN CORPUSCULAR HEMOGLOBIN 28.9 pg (27.0-33.4); MEAN CORPUSCULAR HGB CONC 33.6 g/dL (32.0-36.0); MEAN CORPUSCULAR VOLUME 86 fl (80-97); PLATELET COUNT 206 10^3/uL (150-450); RED BLOOD COUNT 4.07 10^6/uL (3.72-5.28); RED CELL DISTRIBUTION WIDTH 15.8 % (11.5-14.0); WHITE BLOOD COUNT 3.2 10^3/uL (4.0-10.5)
[2020-03-26 06:05] LABS: ABSOLUTE LYMPHOCYTES# (MANUAL) 1.2 10^3/uL (0.5-4.7); ABSOLUTE MONOCYTES # (MANUAL) 0.4 10^3/uL (0.1-1.4); ANISOCYTOSIS 1+; BAND NEUTROPHILS % (MANUAL) 4 % (3-5); BASOPHILS % (MANUAL) 0 % (0-2); EOSINOPHILS % (MANUAL) 1 % (0-6); LYMPHOCYTES % (MANUAL) 38 % (13-45); MONOCYTES % (MANUAL) 11 % (3-13); PLATELET COMMENT ADEQUATE; SEGMENTED NEUTROPHILS % (MAN) 46 % (42-78); TOTAL CELLS COUNTED 100; TOXIC VACUOLATION PRESENT
[2020-03-26 06:17] LABS: ALBUMIN 2.4 g/dL (3.5-5.0); ALKALINE PHOSPHATASE 81 U/L (38-126); ANION GAP 6 (5-19); ASPARTATE AMINO TRANSFERASE 33 U/L (14-36); BILIRUBIN,DIRECT 0.3 mg/dL (0.0-0.4); BILIRUBIN,TOTAL 0.5 mg/dL (0.2-1.3); BLOOD UREA NITROGEN 5 mg/dL (7-20); CARBON DIOXIDE 24 mmol/L (22-30); CHLORIDE 104 mmol/L (98-107); GLUCOSE 84 mg/dL (75-110); POTASSIUM 4.2 mmol/L (3.6-5.0); TOTAL PROTEIN 6.1 g/dL (6.3-8.2)
[2020-03-26] MEDS: POTASSI CL 40 MEQ/NS 1L 1,000 ML IV PRN (11:27)
[2020-03-26] MEDS: ENOXAPARIN SODIUM INJ 40 MG/0.4 ML DISP.SYRIN SUBCUT SCH (11:27)
[2020-03-26] MEDS: FAMOTIDINE 20 MG TABLET PO SCH (11:28)
[2020-03-26 18:02] VITALS: BP 113/65
--- NOTE | 2020-03-26 20:04 | PDOC H&P ---
History of Present Illness Admission Date/PCP: 03/21/20 16:33 SNEHAL VERA MD History of Present Illness: PANCHO ARCE is a 60 year old female, She came to the emergency room for e valuation of generalized weakness, diarrhea, she was in the emergency room 10 days earlier For evaluation of similar complaints.She was found to have grossly electrolyte derangement, including severe hypokalemia, hyponatremia, dehydration, the stool culture was positive for C. difficile, because of the C. difficile colitis with severe electrolyte derangements, inpatient care was recommended by the ED physicians. Past Medical History Cardiac Medical History: Reports: Hypertension Denies: Atrial Fibrillation, Congestive Heart Failure, Coronary Artery Dis ease, Myocardial Infarction, Hyperlipidema, Peripheral Vascular Disease, Heart Murmur Pulmonary Medical History: Reports: Asthma - MILD Denies: Bronchitis, Chronic Obstructive Pulmonary Disease (COPD), Pneumonia Neurological Medical History: Reports: Migraine, Seizures - OVER 20YRS AGO ONLY ONCE GI Medical History: Reports: Gastroesophageal Reflux Disease Denies: Crohn's Disease, Hepatitis, Hiatal Hernia Musculoskeltal Medical History: Denies: Arthritis, Fibromyalgia Psychiatric Medical History: Reports: Bipolar Disorder, Depression Denies: Post Traumatic Stress Disorder Hematology: Denies: Anemia, Sickle Cell Disease Past Surgical History Past Surgical History: Reports: Appendectomy - 1993, "emergency", Hysterectomy, Orthopedic Surgery - right patella replacement, Other - Cataracts Denies: Amputation, Section, Cholecystectomy, Colostomy, Coronary Artery Bypass Graft, Gastric Bypass Surgery, Herniorrhaphy, Mastectomy, Pacemaker, Tonsillectomy, Tubal Ligation Social History Smoking Status: Former Smoker Electronic Cigarette use?: No Frequency of Alcohol Use: Occasional Hx Recreational Drug Use: No Drugs: None Hx Prescription Drug Abuse: Yes Family History Family History: Reviewed & Not Pertinent, Arthritis, CAD, CVA, DM, Hyperlipidemia, Hypertension Parental Family History Reviewed: Yes Children Family History Reviewed: Yes Sibling(s) Family History Reviewed.: Yes Medication/Allergy Home Medications: Amlodipine Besylate [Norvasc 10 mg Tablet] 10 mg PO DAILY 10/04/18 Clonidine HCl [Catapres 0.1 mg Tablet] 0.1 mg PO DAILY 10/04/18 Hydrochlorothiazide [Hydrodiuril 25 mg Tablet] 25 mg PO DAILY 10/04/18 Albuterol Sulfate [Proair HFA Inhalation Aerosol 8.5 gm MDI] 2 puff IH Q4HP PRN 12/04/18 Ammonium Lactate [Lac-Hydrin 12% Lotion 225Gm/Bottle] 1 applic TP BID 03/22/20 Gabapentin [Neurontin 300 mg Capsule] 300 mg PO QHS 03/22/20 Montelukast Sodium [Singulair 10 mg Tablet] 10 mg PO QHS 03/22/20 Omeprazole 40 mg PO QAM 03/22/20 Topiramate [Topamax 100 mg Tablet] 100 mg PO DAILY 03/22/20 Allergies/Adverse Reactions: No Known Allergies Allergy (Verified 03/11/20 12:57) Review of Systems Constitutional: PRESENT: fatigue, weakness. ABSENT: chills, fever(s), he adache(s), weight gain, weight loss Eyes: ABSENT: visual disturbances Ears: ABSENT: hearing changes Cardiovascular: ABSENT: chest pain, dyspnea on exertion, edema, orthropnea, palpitations Respiratory: ABSENT: cough, hemoptysis Gastrointestinal: PRESENT: diarrhea, nausea Genitourinary: ABSENT: dysuria, hematuria Musculoskeletal: ABSENT: joint swelling Integumentary: ABSENT: rash, wounds Neurological: ABSENT: abnormal gait, abnormal speech, confusion, dizziness, focal weakness, syncope Psychiatric: ABSENT: anxiety, depression, homidical ideation, suicidal ideation Endocrine: ABSENT: cold intolerance, heat intolerance, menstrual abnormalities, polydipsia, polyuria Hematologic/Lymphatic: ABSENT: easy bleeding, easy bruising, lymphadenopathy Physical Exam Vital Signs: Temp Pulse Resp BP Pulse Ox 98.1 F 38 L 18 113/65 89 L 03/26/20 17:41 03/26/20 17:41 03/26/20 17:41 03/26/20 17:41 03/26/20 17:41 Intake & Output 03/25/20 03/26/20 03/27/20 06:59 06:59 06:59 Intake Total 3800 3380 820 Balance 3800 3380 820 Weight 90.2 kg 92.3 kg General appearance: PRESENT: no acute distress, obese Head exam: PRESENT: atraumatic, normocephalic Eye exam: PRESENT: PERRLA Ear exam: PRESENT: normal external ear exam Mouth exam: PRESENT: dry mucosa Neck exam: PRESENT: full ROM Respiratory exam: PRESENT: clear to auscultation melisa Cardiovascular exam: PRESENT: RRR, +S1, +S2 Pulses: PRESENT: normal dorsalis pedis pul, +2 pedal pulses bilateral Vascular exam: PRESENT: normal capillary refill GI/Abdominal exam: PRESENT: normal bowel sounds, soft Rectal exam: PRESENT: deferred Neurological exam: PRESENT: alert Psychiatric exam: PRESENT: appropriate affect, normal mood Skin exam: PRESENT: dry, intact, warm Results Laboratory Results: 03/26/20 05:01 03/26/20 05:01 03/26/20 03/26/20 05:01 05:01 WBC 3.2 L RBC 4.07 Hgb 11.8 L Hct 35.1 L MCV 86 MCH 28.9 MCHC 33.6 RDW 15.8 H Plt Count 206 Seg Neutrophils % Not Reportable Sodium 134.1 L Potassium 4.2 Chloride 104 Carbon Dioxide 24 Anion Gap 6 BUN 5 L Creatinine 0.50 L Est GFR ( Amer) > 60 Glucose 84 Calcium 8.0 L Total Bilirubin 0.5 AST 33 Alkaline Phosphatase 81 Total Protein 6.1 L Albumin 2.4 L 03/21/20 11:30 Blood Blood Culture - Final NO GROWTH IN 5 DAYS 03/21/20 11:22 Blood Blood Culture - Final NO GROWTH IN 5 DAYS Impressions: Abdomen/Pelvis CT 03/21/20 00:00 IMPRESSION: Chronic appearing findings as above. No acute abnormality is seen. TECHNICAL DOCUMENTATION: Quality ID # 436: Final reports with documentation of one or more dose reduction techniques (e.g., Automated exposure control, adjustment of the mA and/or kV according to patient size, use of iterative reconstruction technique) copyright 2011 [employer]- All Rights Reserved Head CT 03/21/20 15:59 IMPRESSION: NORMAL BRAIN CT WITHOUT CONTRAST. EVIDENCE OF ACUTE STROKE: NO. Assessment & Plan - Diagnosis (1) Clostridium difficile enterocolitis Is this a current diagnosis for this admission?: Yes Plan: Patient started on vancomycin. (2) Hypokalemia Is this a current diagnosis for this admission?: Yes Plan: Correct potassium (3) Hyponatremia Is this a current diagnosis for this admission?: Yes Plan: Replace volume depletion - Time Time Spent: Greater than 70 Minutes Medications reviewed and adjusted accordingly: Yes Anticipated Discharge Disposition: Home, Self Care Anticipated Discharge Timeframe: within 72 hours - Inpatient Certification Based on my medical assessment, after consideration of the patient's comorbidities, presenting symptoms, or acuity I expect that the services needed warrant INPATIENT care.: Yes I certify that my determination is in accordance with my understanding of Medicare's requirements for reasonable and necessary INPATIENT services [42 CFR 412.3e].: Yes
--- NOTE | 2020-03-26 20:12 | PDOC DISCHARGE SUMMARY ---
Impression - Admit/DC Date/PCP Admission Date/Primary Care Provider: 03/21/20 16:33 SNEHAL VERA MD Discharge Date: 03/26/20 - Discharge Diagnosis (1) Clostridium difficile enterocolitis Is this a current diagnosis for this admission?: Yes (2) Hypokalemia Is this a current diagnosis for this admission?: Yes (3) Hyponatremia Is this a current diagnosis for this admission?: Yes - Additional Information Discharge Activity: Activity As Tolerated Referrals: SNEHAL VERA MD [Primary Care Provider] - 03/30/20 11:00 am Home Medications: Amlodipine Besylate [Norvasc 10 mg Tablet] 10 mg PO DAILY 10/04/18 Clonidine HCl [Catapres 0.1 mg Tablet] 0.1 mg PO DAILY 10/04/18 Hydrochlorothiazide [Hydrodiuril 25 mg Tablet] 25 mg PO DAILY 10/04/18 Albuterol Sulfate [Proair HFA Inhalation Aerosol 8.5 gm MDI] 2 puff IH Q4HP PRN 12/04/18 Ammonium Lactate [Lac-Hydrin 12% Lotion 225Gm/Bottle] 1 applic TP BID 03/22/20 Gabapentin [Neurontin 300 mg Capsule] 300 mg PO QHS 03/22/20 Montelukast Sodium [Singulair 10 mg Tablet] 10 mg PO QHS 03/22/20 Omeprazole 40 mg PO QAM 03/22/20 Topiramate [Topamax 100 mg Tablet] 100 mg PO DAILY 03/22/20 History of Present Illiness History of Present Illness: PANCHO ARCE is a 60 year old female, She came to the emergency room for evaluation of generalized weakness, diarrhea, she was in the emergency room 10 days earlier For evaluation of similar complaints.She was found to have grossly electrolyte derangement, including severe hypokalemia, hyponatremia, dehydration, the stool culture was positive for C. difficile, because of the C. difficile colitis with severe electrolyte derangements, inpatient care was recommended by the ED physicians. Hospital Course Hospital Course: Patient was admitted for the management of C. difficile colitis associated with hypokalemia, hyponatremia. The C. difficile was treated with p.o. vancomycin, The electrolytes were corrected.Patient feels much better Physical Exam Vital Signs: Temp Pulse Resp BP Pulse Ox 98.1 F 38 L 18 113/65 89 L 03/26/20 17:41 03/26/20 17:41 03/26/20 17:41 03/26/20 17:41 03/26/20 17:41 Intake & Output 03/25/20 03/26/20 03/27/20 06:59 06:59 06:59 Intake Total 3800 3380 820 Balance 3800 3380 820 Weight 90.2 kg 92.3 kg General appearance: PRESENT: no acute distress Eye exam: PRESENT: PERRLA Respiratory exam: PRESENT: clear to auscultation melisa Cardiovascular exam: PRESENT: +S1, +S2 GI/Abdominal exam: PRESENT: soft Neurological exam: PRESENT: alert Results Laboratory Results: WBC 3.2 10^3/uL (4.0-10.5) L 03/26/20 05:01 RBC 4.07 10^6/uL (3.72-5.28) 03/26/20 05:01 Hgb 11.8 g/dL (12.0-15.5) L 03/26/20 05:01 Hct 35.1 % (36.0-47.0) L 03/26/20 05:01 MCV 86 fl (80-97) 03/26/20 05:01 MCH 28.9 pg (27.0-33.4) 03/26/20 05:01 MCHC 33.6 g/dL (32.0-36.0) 03/26/20 05:01 RDW 15.8 % (11.5-14.0) H 03/26/20 05:01 Plt Count 206 10^3/uL (150-450) 03/26/20 05:01 Lymph % (Auto) Not Reportable 03/26/20 05:01 [place] % (Auto) Not Reportable 03/26/20 05:01 Eos % (Auto) Not Reportable 03/26/20 05:01 Baso % (Auto) Not Reportable 03/26/20 05:01 Absolute Neuts (auto) Not Reportable 03/26/20 05:01 Absolute Lymphs (auto) Not Reportable 03/26/20 05:01 Absolute Monos (auto) Not Reportable 03/26/20 05:01 Absolute Eos (auto) Not Reportable 03/26/20 05:01 Absolute Basos (auto) Not Reportable 03/26/20 05:01 Total Counted 100 03/26/20 05:01 Seg Neutrophils % Not Reportable 03/26/20 05:01 Seg Neuts % (Manual) 46 % (42-78) 03/26/20 05:01 Band Neutrophils % 4 % (3-5) 03/26/20 05:01 Lymphocytes % (Manual) 38 % (13-45) 03/26/20 05:01 Monocytes % (Manual) 11 % (3-13) 03/26/20 05:01 Eosinophils % (Manual) 1 % (0-6) 03/26/20 05:01 Basophils % (Manual) 0 % (0-2) 03/26/20 05:01 Abs Neuts (Manual) 1.6 10^3/uL (1.7-8.2) L 03/26/20 05:01 Abs Lymphs (Manual) 1.2 10^3/uL (0.5-4.7) 03/26/20 05:01 Abs Monocytes (Manual) 0.4 10^3/uL (0.1-1.4) 03/26/20 05:01 Absolute Eos (Manual) 0.0 10^3/uL (0.0-0.6) 03/26/20 05:01 Abs Basophils (Manual) 0.0 10^3/uL (0.0-0.2) 03/26/20 05:01 Toxic Vacuolation PRESENT 03/26/20 05:01 Platelet Comment ADEQUATE 03/26/20 05:01 Poikilocytosis SLIGHT 03/23/20 17:59 Anisocytosis 1+ 03/26/20 05:01 Ovalocytes SLIGHT 03/23/20 17:59 Sodium 134.1 mmol/L (137-145) L 03/26/20 05:01 Potassium 4.2 mmol/L (3.6-5.0) 03/26/20 05:01 Chloride 104 mmol/L (98-107) 03/26/20 05:01 Carbon Dioxide 24 mmol/L (22-30) 03/26/20 05:01 Anion Gap 6 (5-19) 03/26/20 05:01 BUN 5 mg/dL (7-20) L 03/26/20 05:01 Creatinine 0.50 mg/dL (0.52-1.25) L 03/26/20 05:01 Est GFR ( Amer) > 60 (>60) 03/26/20 05:01 Est GFR (MDRD) Non-Af > 60 (>60) 03/26/20 05:01 Glucose 84 mg/dL (75-110) 03/26/20 05:01 Calcium 8.0 mg/dL (8.4-10.2) L 03/26/20 05:01 Magnesium 2.2 mg/dL (1.6-2.3) 03/21/20 11:22 Total Bilirubin 0.5 mg/dL (0.2-1.3) 03/26/20 05:01 Direct Bilirubin 0.3 mg/dL (0.0-0.4) 03/26/20 05:01 Neonat Total Bilirubin Not Reportable 03/26/20 05:01 Neonat Direct Bilirubin Not Reportable 03/26/20 05:01 Neonat Indirect Bili Not Reportable 03/26/20 05:01 AST 33 U/L (14-36) 03/26/20 05:01 ALT 21 U/L (<35) 03/26/20 05:01 Alkaline Phosphatase 81 U/L (38-126) 03/26/20 05:01 Total Protein 6.1 g/dL (6.3-8.2) L 03/26/20 05:01 Albumin 2.4 g/dL (3.5-5.0) L 03/26/20 05:01 Urine Color CARLOS 03/22/20 03:43 Urine Appearance SLIGHTLY-CLOUDY 03/22/20 03:43 Urine pH 6.0 (5.0-9.0) 03/22/20 03:43 Ur Specific Reading 1.020 03/22/20 03:43 Urine Protein 30 mg/dL (NEGATIVE) H 03/22/20 03:43 Urine Glucose (UA) NEGATIVE mg/dL (NEGATIVE) 03/22/20 03:43 Urine Ketones 20 mg/dL (NEGATIVE) H 03/22/20 03:43 Urine Blood NEGATIVE (NEGATIVE) 03/22/20 03:43 Urine Nitrite NEGATIVE (NEGATIVE) 03/22/20 03:43 Urine Bilirubin NEGATIVE (NEGATIVE) 03/22/20 03:43 Urine Urobilinogen 2.0 mg/dL (<2.0) H 03/22/20 03:43 Ur Leukocyte Esterase MODERATE (NEGATIVE) H 03/22/20 03:43 Urine WBC (Auto) 1 /HPF 03/22/20 03:43 Urine RBC (Auto) 1 /HPF 03/22/20 03:43 Urine Bacteria (Auto) TRACE /HPF 03/22/20 03:43 Urine Ascorbic Acid NEGATIVE (NEGATIVE) 03/22/20 03:43 Stl C. Difficile GDH Ag POSITIVE (NEGATIVE) 03/21/20 15:35 Stl C.difficile Tox A&B NEGATIVE (NEGATIVE) 03/21/20 15:35 Stl C.difficile Tox PCR POSITIVE (NEGATIVE) 03/21/20 15:35 Impressions: Abdomen/Pelvis CT 03/21/20 00:00 IMPRESSION: Chronic appearing findings as above. No acute abnormality is seen. TECHNICAL DOCUMENTATION: Quality ID # 436: Final reports with documentation of one or more dose reduction techniques (e.g., Automated exposure control, adjustment of the mA and/or kV according to patient size, use of iterative reconstruction technique) copyright 2011 [employer]- All Rights Reserved Head CT 03/21/20 15:59 IMPRESSION: NORMAL BRAIN CT WITHOUT CONTRAST. EVIDENCE OF ACUTE STROKE: NO. Stroke Is this a Stroke Patient?: No Acute Heart Failure Is this a Heart Failure Patient?: No
== END 2020-03-26 18:40 | disposition home or self-care (01) | DRG 372 ==
LOC: ER 10:03 → EH 16:33 → 3W 18:29
PROVIDERS: ADMIT Family Medicine; ATTEND Internal Medicine
DX: A04.72 Enterocolitis due to Clostridium difficile, not specified as recurrent (principal); E87.1 Hypo-osmolality and hyponatremia; E87.6 Hypokalemia; I10 Essential (primary) hypertension; J45.909 Unspecified asthma, uncomplicated; K21.9 Gastro-esophageal reflux disease without esophagitis; F31.9 Bipolar disorder, unspecified; Z90.49 Acquired absence of other specified parts of digestive tract; Z87.891 Personal history of nicotine dependence; Z79.899 Other long term (current) drug therapy
CPT/HCPCS: 36415; 70450; 74176; 80048; 80053; 81001; 83735; 84132; 85025; 87040; 87045; 87086; 87177; 87205; 87324; 87449; 87493; 93005; 93010; 99285; J1650; J2405; J3370; J3480; J7030

== ENCOUNTER 2020-04-04 11:18 | Inpatient (IN) | payer SELFPAY ==
--- NOTE | 2020-04-04 12:00 | ER Document Report ---
ED GI/ - General Chief Complaint: Nausea/Vomiting/Diarrhea Stated Complaint: VOMITING,HEADACHE,DIARRHEA Time Seen by Provider: 04/04/20 11:44 Primary Care Provider: SNEHAL VERA MD [Primary Care Provider] - Follow up as needed Notes: HPI: 60-year-old female that states some persistent vomiting and diarrhea. She states multiple times of each day. She denies any blood in the vomit or diarrhea. Patient was just discharged here on March 26 secondary to C. difficile colitis treated with p.o. vancomycin. She supposedly was admitted around 10 days prior for similar pathology with electrolyte disturbance. Patient states some diffuse abdominal discomfort. She denies any chest pain, fevers, cough, or congestion. ROS: See HPI All other review of systems reviewed and otherwise negative Reviewed vital signs and nursing note as charted by RN. PHYSICAL EXAM: CONSTITUTIONAL: Alert and oriented and responds appropriately to questions. Frail-appearing female HEAD: Normocephalic; atraumatic EYES: Sclerae non-icteric ENT: Normal nose; no rhinorrhea; moist mucous membranes; pharynx without lesions noted NECK: Supple without meningismus; non-tender; no cervical lymphadenopathy, no masses CARD: Tachycardic and irregular; no murmurs; symmetric distal pulses RESP: Normal chest excursion without splinting or tachypnea; breath sounds clear and equal bilaterally; no wheezes, no rhonchi, no rales ABD/GI: Normal bowel sounds; non-distended; soft, nonspecific tenderness to palpation of all 4 quadrants without rebound or guarding. No palpable masses or abdominal bruits BACK: The back appears normal and is non-tender to palpation EXT: Normal ROM in all joints; non-tender to palpation; no edema SKIN: No acute lesions noted NEURO: CN 2-12 intact; 5/5 bilateral upper and lower extremity strength with sensation intact to light touch PSYCH: The patient's mood and manner are appropriate. Grooming and personal hygiene are appropriate. TRAVEL OUTSIDE OF THE [place] IN LAST 30 DAYS: No - Related Data Allergies/Adverse Reactions: No Known Allergies Allergy (Verified 03/11/20 12:57) Past Medical History - Social History Smoking Status: Unknown if Ever Smoked Family History: Reviewed & Not Pertinent, Arthritis, CAD, CVA, DM, Hyperlipidemia, Hypertension - Past Medical History Cardiac Medical History: Reports: Hx Hypertension Denies: Hx Atrial Fibrillation, Hx Congestive Heart Failure, Hx Coronary Artery Disease, Hx Heart Attack, Hx Hypercholesterolemia, Hx Peripheral Vascular Disease, Hx Heart Murmur Pulmonary Medical History: Reports: Hx Asthma - MILD Denies: Hx Bronchitis, Hx COPD, Hx Pneumonia Neurological Medical History: Reports: Hx Migraine, Hx Seizures - OVER 20YRS AGO ONLY ONCE. Denies: Hx Cerebrovascular Accident Renal/ Medical History: Reports: Hx Kidney Stones. Denies: Hx Peritoneal Dialysis GI Medical History: Reports: Hx Gastroesophageal Reflux Disease. Denies: Hx Crohn's Disease, Hx Hepatitis, Hx Hiatal Hernia Musculoskeletal Medical History: Denies Hx Arthritis, Denies Hx Fibromyalgia, Reports Hx Musculoskeletal Deformity, Reports Hx Musculoskeletal Trauma Psychiatric Medical History: Reports: Hx Anxiety, Hx Bipolar Disorder, Hx Depression, Hx Schizophrenia Denies: Hx Post Traumatic Stress Disorder Traumatic Medical History: Reports: Hx Fractures - RT ankle ,denies sugery, reports cast application only Infectious Medical History: Denies: Hx Hepatitis Past Surgical History: Reports: Hx Abdominal Surgery, Hx Appendectomy - 1993, "emergency", Hx Hysterectomy, Hx Nose Surgery, Hx Orthopedic Surgery - right pa tella replacement, Other - Cataracts. Denies: Hx Section, Hx Cholecystectomy, Hx Colostomy, Hx Coronary Artery Bypass Graft, Hx Gastric Bypass Surgery, Hx Herniorrhaphy, Hx Mastectomy, Hx Pacemaker, Hx Tonsillectomy, Hx Tubal Ligation - Immunizations Immunizations up to date: No Hx Diphtheria, Pertussis, Tetanus Vaccination: Yes Physical Exam - Vital signs Vitals: Temp Pulse Resp BP Pulse Ox 98.2 F 43 L 20 107/56 L 100 04/04/20 11:28 04/04/20 11:28 04/04/20 11:28 04/04/20 11:28 04/04/20 11:28 Course - Re-evaluation Re-evalutation: EKG shows sinus tachycardia, heart rate 114, PVCs present. No ST elevation or depression. 04/04/20 12:32 Given the above history and physical now associated with vomiting and some abdominal discomfort, we will recheck the patient's electrolytes as well as obtain a CT scan of the abdomen and pelvis for further evaluation and treatment. I would like to assess for the possibility of severe dehydration or acute intra-abdominal pathology. Patient is tachycardic so I will provide fluids and nausea medications. I will call the patient's son with phone number on file. 04/04/20 17:34 The blood hemolyzed x3. We were able to perform a right EJ. Potassium as recorded. Patient had received a liter of fluid. Urine analysis as recorded. Urine culture has been sent. I have repleted potassium both IV and p.o. I have spoken to the admitting physician who would like me to hold on antibiotics for possible urinary tract infection. - Vital Signs Vital signs: Temp Pulse Resp BP Pulse Ox 98 F 43 L 32 H 90/72 L 100 04/04/20 15:30 04/04/20 11:28 04/04/20 16:18 04/04/20 16:18 04/04/20 15:00 - Laboratory Result Diagrams: 04/04/20 15:23 04/04/20 16:20 Laboratory results interpreted by me: 04/04/20 04/04/20 04/04/20 12:27 15:23 16:20 RDW 15.5 H Sodium 131.7 L Potassium 2.4 L* Chloride 92 L Calcium 7.8 L AST 68 H Alkaline Phosphatase 139 H Albumin 3.3 L Urine Protein 100 H Urine Ketones TRACE H Urine Bilirubin SMALL H Urine Urobilinogen 4.0 H Ur Leukocyte Esterase MODERATE H Discharge - Discharge Clinical Impression: Dehydration, C. difficile colitis, Low blood potassium Diarrhea Qualifiers: Diarrhea type: unspecified type Qualified Code(s): R19.7 - Diarrhea, uns pecified Condition: Good Disposition: ADMITTED OBSERVATION Admitting Provider: Marilyn Unit Admitted: Telemetry Referrals: SNEHAL VERA MD [Primary Care Provider] - Follow up as needed
[2020-04-04] MEDS ORDERED: NORMAL SALINE 1000 ML 1,000 ML IV ONE ×3 (12:24→21:15)
[2020-04-04] MEDS ORDERED: ONDANSETRON HCL INJ/PF 4 MG/2 ML SDV IV ONE (12:25)
[2020-04-04 12:58] LABS: APPEARANCE,URINE CLOUDY; BILIRUBIN,URINE SMALL (NEGATIVE); COLOR,URINE AMBER; GLUCOSE, URINE NEGATIVE (NEGATIVE); KETONES,URINE TRACE mg/dL (NEGATIVE); LEUKOCYTE ESTERASE,URINE MODERATE (NEGATIVE); NITRITE,URINE NEGATIVE (NEGATIVE); PROTEIN,URINE 100 mg/dL (NEGATIVE); URINE SPECIFIC GRAVITY 1.026
[2020-04-04 15:33] LABS: HEMATOCRIT 39.8 % (36.0-47.0); HEMOGLOBIN 13.8 g/dL (12.0-15.5); MEAN CORPUSCULAR HEMOGLOBIN 29.4 pg (27.0-33.4); MEAN CORPUSCULAR HGB CONC 34.7 g/dL (32.0-36.0); MEAN CORPUSCULAR VOLUME 85 fl (80-97); PLATELET COUNT 253 10^3/uL (150-450); RED BLOOD COUNT 4.69 10^6/uL (3.72-5.28); RED CELL DISTRIBUTION WIDTH 15.5 % (11.5-14.0); WHITE BLOOD COUNT 6.8 10^3/uL (4.0-10.5)
[2020-04-04 15:56] LABS: ABSOLUTE LYMPHOCYTES# (MANUAL) 1.2 10^3/uL (0.5-4.7); ABSOLUTE MONOCYTES # (MANUAL) 0.4 10^3/uL (0.1-1.4); BASOPHILS % (MANUAL) 0 % (0-2); EOSINOPHILS % (MANUAL) 0 % (0-6); LYMPHOCYTES % (MANUAL) 17 % (13-45); MONOCYTES % (MANUAL) 6 % (3-13); SEGMENTED NEUTROPHILS % (MAN) 77 % (42-78); TOTAL CELLS COUNTED 100
[2020-04-04 15:57] LABS: ANISOCYTOSIS SLIGHT; PLATELET COMMENT ADEQUATE; PLATELET LARGE PRESENT
--- NOTE | 2020-04-04 16:23 | RADIOLOGY REPORT (SQ) ---
EXAM DESCRIPTION: CT ABDOMEN NO ORAL OR IV IMAGES COMPLETED DATE/TIME: 04/04/2020 4:02 pm REASON FOR STUDY: 6; abdominal pain with vomiting and diarrhea COMPARISON: 03/21/2020. TECHNIQUE: CT scan of the abdomen and pelvis performed without intravenous or oral contrast. Images reviewed with lung, soft tissue, and bone windows. Reconstructed coronal and sagittal MPR images revi ewed. All images stored on PACS. All CT scanners at this facility use dose modulation, iterative reconstruction, and/or weight based d osing when appropriate to reduce radiation dose to as low as reasonably achievable (ALARA). [facility]: Dose Right [facility]: CareDose [facility]: Dose Right [facility]: Teradose 4D [facility]: Smart Infobl[employer] RADIATION DOSE: CT Rad equipment meets quality standard of care and radiation dose reduction techniq ues were employed. CTDIvol: 9.2 mGy. DLP: 474 mGy-cm.mGy. LIMITATIONS: None. FINDINGS: LOWER CHEST: No significant findings. No nodules or infiltrates. NON-CONTRASTED LIVER, SPLEEN, ADRENALS: Evaluation limited by lack of IV contrast. Diffuse fatty inf iltration of the liver. No identified significant masses. PANCREAS: No masses. No peripancreatic inflammatory changes. GALLBLADDER: Surgically absent. RIGHT KIDNEY AND URETER: No solid masses. No significant calcification. No hydronephrosis or hydroure ter. LEFT KIDNEY AND URETER: No solid masses. No significant calcification. No hydronephrosis or hydrouret er. AORTA AND RETROPERITONEUM: No aneurysm. No retroperitoneal masses or adenopathy. BOWEL AND PERITONEAL CAVITY: No obvious masses or inflammatory changes. No free fluid. APPENDIX: Surgically absent. PELVIS, BLADDER, AND ABDOMINAL WALL:No abnormal masses. No free fluid. Bladder normal. BONES: No significant findings. OTHER: No other significant finding. IMPRESSION: DIFFUSE FATTY INFILTRATION OF THE LIVER. OTHERWISE NO SIGNIFICANT OR ACUTE PROCESS IN T HE ABDOMEN OR PELVIS. TECHNICAL DOCUMENTATION: JOB ID: [id number] Quality ID # [id number]: Final reports with documentation of one or more dose reduction techniques (e.g., Au tomated exposure control, adjustment of the mA and/or kV according to patient size, use of iterative reconstruction technique) 2010 [employer]- All Rights Reserved Reading location - IP/workstation name: [email or web address]
[2020-04-04 16:46] LABS: ALBUMIN 3.3 g/dL (3.5-5.0); ALKALINE PHOSPHATASE 139 U/L (38-126); ANION GAP 16 (5-19); ASPARTATE AMINO TRANSFERASE 68 U/L (14-36); BILIRUBIN,DIRECT 0.4 mg/dL (0.0-0.4); BILIRUBIN,TOTAL 1.1 mg/dL (0.2-1.3); BLOOD UREA NITROGEN 12 mg/dL (7-20); CALCIUM 7.8 mg/dL (8.4-10.2); CARBON DIOXIDE 24 mmol/L (22-30); CHLORIDE 92 mmol/L (98-107); GLUCOSE 104 mg/dL (75-110); TOTAL PROTEIN 7.8 g/dL (6.3-8.2)
[2020-04-04 16:49] LABS: POTASSIUM 2.4 mmol/L (3.6-5.0)
[2020-04-04] MEDS ORDERED: LIDOCAINE 1% INJ-PF (10 MG/ML) 30 ML SDV ONE (17:10)
[2020-04-04] MEDS ORDERED: POTASSI CL 20 MEQ/50 ML RIDER 20 MEQ/50 ML RTUPB IV ONE (17:24)
[2020-04-04] MEDS ORDERED: ACETAMINOPHEN 325 MG TABLET PO ONE (17:25)
[2020-04-04] MEDS ORDERED: POTASSIUM CHLORIDE 10 MEQ TABLET.ER PO ONE (17:25)
[2020-04-04] MEDS ORDERED: VANCOMYCIN HCL INJ 500 MG VIAL PO ONE (21:30)
[2020-04-04] MEDS: METRONIDAZOLE 500 MG TABLET PO SCH (23:19)
[2020-04-04] MEDS: POTASSIUM CHLORIDE 20 MEQ/50 ML RTU IV SCH (23:28)
[2020-04-05] MEDS: POTASSIUM CHLORIDE 20 MEQ/50 ML RTU IV SCH ×4 (00:51→14:30)
[2020-04-05] MEDS: VANCOMYCIN HCL INJ 500 MG VIAL PO SCH ×4 (02:23→21:43)
[2020-04-05] MEDS: NORMAL SALINE 1000 ML 1,000 ML IV PRN ×2 (02:41→11:13)
[2020-04-05] MEDS: PANTOPRAZOLE SODIUM 40 MG TABLET.DR PO SCH (05:20)
[2020-04-05 05:48] LABS: ABSOLUTE LYMPHOCYTES (AUTO) 1.1 10^3/uL (0.5-4.7); ABSOLUTE MONOCYTES (AUTO) 0.4 10^3/uL (0.1-1.4); BASOPHILS % (AUTO) 0.5 % (0-2); EOSINOPHILS % (AUTO) 0.7 % (0-6); HEMATOCRIT 31.7 % (36.0-47.0); LYMPHOCYTES % (AUTO) 30.9 % (13-45); MEAN CORPUSCULAR HEMOGLOBIN 29.7 pg (27.0-33.4); MEAN CORPUSCULAR HGB CONC 34.6 g/dL (32.0-36.0); MEAN CORPUSCULAR VOLUME 86 fl (80-97); MONOCYTES % (AUTO) 10.8 % (3-13); PLATELET COUNT 205 10^3/uL (150-450); RED BLOOD COUNT 3.68 10^6/uL (3.72-5.28); RED CELL DISTRIBUTION WIDTH 15.9 % (11.5-14.0); SEGMENTED NEUTROPHILS % (AUTO) 57.1 % (42-78); TOTAL CELLS COUNTED % (AUTO) 100 %; WHITE BLOOD COUNT 3.5 10^3/uL (4.0-10.5)
[2020-04-05 05:59] LABS: HEMOGLOBIN 10.9 g/dL (12.0-15.5)
[2020-04-05 06:15] LABS: ANION GAP 9 (5-19); BLOOD UREA NITROGEN 11 mg/dL (7-20); CARBON DIOXIDE 23 mmol/L (22-30); CHLORIDE 101 mmol/L (98-107); GLUCOSE 91 mg/dL (75-110)
[2020-04-05 06:27] LABS: CALCIUM 6.9 mg/dL (8.4-10.2); POTASSIUM 2.8 mmol/L (3.6-5.0)
[2020-04-05] MEDS: METRONIDAZOLE 500 MG TABLET PO SCH ×3 (09:37→21:43)
[2020-04-05] MEDS: ENOXAPARIN SODIUM INJ 40 MG/0.4 ML DISP.SYRIN SUBCUT SCH (09:38)
[2020-04-05] MEDS: CALCIUM GLUCONATE 1 GM/NS 50 ML RTU IV SCH ×2 (11:13→14:30)
[2020-04-05] MEDS ORDERED: CALCIUM GLUCONATE 1 GM/NS 50 ML RTU IV SCH (15:00)
--- NOTE | 2020-04-05 20:49 | PDOC H&P ---
History of Present Illness Admission Date/PCP: 04/04/20 18:10 SNEHAL VERA MD History of Present Illness: PANCHO ARCE is a 60 year old female, She was recently admitted for the [facility] of Clostridium difficile colitis associated with severe electrolyte derangement, she was treated for prolonged time in the hospital with p.o. vancomycin, she returned today with continued diarrhea hypokalemia and also C. difficile colitis so clearly this is a recurrent C. difficile colitis Past Medical History Cardiac Medical History: Reports: Hypertension Pulmonary Medical History: Reports: Asthma - MILD Neurological Medical History: Reports: Migraine, Seizures - OVER 20YRS AGO ONLY ONCE GI Medical History: Reports: Gastroesophageal Reflux Disease Psychiatric Medical History: Reports: Bipolar Disorder, Depression Denies: Post Traumatic Stress Disorder Past Surgical History Past Surgical History: Reports: Appendectomy - 1993, "emergency", Hysterectomy, Orthopedic Surgery - right patella replacement, Other - Cataracts Social History Smoking Status: Former Smoker Frequency of Alcohol Use: Occasional Hx Recreational Drug Use: No Drugs: None Hx Prescription Drug Abuse: Yes Family History Family History: Reviewed & Not Pertinent, Arthritis, CAD, CVA, DM, Hyperlipidemia, Hypertension Parental Family History Reviewed: Yes Children Family History Reviewed: Yes Sibling(s) Family History Reviewed.: Yes Medication/Allergy Home Medications: Amlodipine Besylate [Norvasc 10 mg Tablet] 10 mg PO DAILY 10/04/18 Clonidine HCl [Catapres 0.1 mg Tablet] 0.1 mg PO DAILY 10/04/18 Hydrochlorothiazide [Hydrodiuril 25 mg Tablet] 25 mg PO DAILY 10/04/18 Albuterol Sulfate [Proair HFA Inhalation Aerosol 8.5 gm MDI] 2 puff IH Q4HP PRN 12/04/18 Ammonium Lactate [Lac-Hydrin 12% Lotion 225Gm/Bottle] 1 applic TP BID 03/22/20 Gabapentin [Neurontin 300 mg Capsule] 300 mg PO QHS 03/22/20 Montelukast Sodium [Singulair 10 mg Tablet] 10 mg PO QHS 03/22/20 Omeprazole 40 mg PO QAM 03/22/20 Topiramate [Topamax 100 mg Tablet] 100 mg PO DAILY 03/22/20 Allergies/Adverse Reactions: No Known Allergies Allergy (Verified 03/11/20 12:57) Review of Systems Constitutional: ABSENT: chills, fever(s), headache(s), weight gain, weight loss Eyes: ABSENT: visual disturbances Ears: ABSENT: hearing changes Cardiovascular: ABSENT: chest pain, dyspnea on exertion, edema, orthropnea, palpitations Respiratory: ABSENT: cough, hemoptysis Gastrointestinal: PRESENT: diarrhea Genitourinary: ABSENT: dysuria, hematuria Musculoskeletal: ABSENT: joint swelling Integumentary: ABSENT: rash, wounds Neurological: ABSENT: abnormal gait, abnormal speech, confusion, dizziness, focal weakness, syncope Psychiatric: ABSENT: anxiety, depression, homidical ideation, suicidal ideation Endocrine: ABSENT: cold intolerance, heat intolerance, menstrual abnormalities, polydipsia, polyuria Hematologic/Lymphatic: ABSENT: easy bleeding, easy bruising, lymphadenopathy Physical Exam Vital Signs: Temp Pulse Resp BP Pulse Ox 97.5 F 101 H 18 103/44 L 100 04/05/20 19:37 04/05/20 19:37 04/05/20 15:31 04/05/20 19:37 04/05/20 19:37 Intake & Output 04/04/20 04/05/20 04/06/20 06:59 06:59 06:59 Intake Total 3695 2353 Output Total 700 Balance 3695 1653 Weight 85.4 kg 85.4 kg General appearance: PRESENT: no acute distress, mild distress Head exam: PRESENT: atraumatic, normocephalic Eye exam: PRESENT: PERRLA Ear exam: PRESENT: normal external ear exam Mouth exam: PRESENT: dry mucosa Neck exam: PRESENT: full ROM Respiratory exam: PRESENT: clear to auscultation melisa Cardiovascular exam: PRESENT: RRR, +S1, +S2 Pulses: PRESENT: normal dorsalis pedis pul, +2 pedal pulses bilateral Vascular exam: PRESENT: normal capillary refill GI/Abdominal exam: PRESENT: normal bowel sounds, soft Rectal exam: PRESENT: deferred Neurological exam: PRESENT: alert Psychiatric exam: PRESENT: appropriate affect, normal mood Skin exam: PRESENT: dry, intact, warm Results Laboratory Results: 04/05/20 05:33 04/05/20 05:33 04/04/20 04/05/20 04/05/20 16:20 05:33 05:33 WBC 3.5 L RBC 3.68 L Hgb 10.9 L D Hct 31.7 L MCV 86 MCH 29.7 MCHC 34.6 RDW 15.9 H Plt Count 205 Seg Neutrophils % 57.1 Sodium 132.9 L Potassium 2.8 L* Chloride 101 Carbon Dioxide 23 Anion Gap 9 BUN 11 Creatinine 0.53 Est GFR ( Amer) > 60 Glucose 91 Calcium 6.9 L* Magnesium 1.8 Impressions: Abdomen CT 04/04/20 12:25 IMPRESSION: DIFFUSE FATTY INFILTRATION OF THE LIVER. OTHERWISE NO SIGNIFICANT OR ACUTE PROCESS IN THE ABDOMEN OR PELVIS. Assessment & Plan - Diagnosis (1) Recurrent colitis due to Clostridioides difficile Is this a current diagnosis for this admission?: Yes Plan: She has recurrent C. difficile colitis, at this stage she will benefit from Dificid 200 mg p.o. twice daily for 10 days, we will consult with pharmacy to obtain this medication because I cannot place an order in [facility] for this medication. But it is presently indicated for this patient she has failed p.o. vancomycin (2) Hypokalemia Is this a current diagnosis for this admission?: Yes Plan: This is due to ongoing GI losses, replace potassium (3) Dehydration Is this a current diagnosis for this admission?: Yes Plan: This is due to volume loss from ongoing diarrhea, replenished volume with IV fluid - Time Time Spent: Greater than 70 Minutes Critical Time spent with patient: 35 or more minutes Medications reviewed and adjusted accordingly: Yes Anticipated Discharge Disposition: Home, Self Care Anticipated Discharge Timeframe: 7 -10 days
[2020-04-06] MEDS: VANCOMYCIN HCL INJ 500 MG VIAL PO SCH ×3 (03:13→14:16)
[2020-04-06 03:15] LABS: C DIFFICILE GDH POSITIVE (NEGATIVE)
[2020-04-06] MEDS: PANTOPRAZOLE SODIUM 40 MG TABLET.DR PO SCH (05:24)
[2020-04-06] MEDS: METRONIDAZOLE 500 MG TABLET PO SCH ×2 (05:24→14:16)
[2020-04-06] MEDS ORDERED: INFLUENZA QUAD (6MOS+) 2020-21 VAC 0.5 ML SYR IM ONE (08:00)
[2020-04-06] MEDS: ENOXAPARIN SODIUM INJ 40 MG/0.4 ML DISP.SYRIN SUBCUT SCH (10:37)
[2020-04-06] MEDS: FIDAXOMICIN 200 MG TABLET PO SCH (17:39)
[2020-04-06] MEDS: NORMAL SALINE 1000 ML 1,000 ML IV PRN (17:39)
--- NOTE | 2020-04-06 19:38 | PDOC PROGRESS REPORT ---
Subjective Progress Note for:: 04/05/20 Subjective:: Patient was admitted yesterday for the management of recurrent C. difficile colitis, hypokalemia and dehydration she was seen today by the bedside Reason For Visit: NAUSEA,VOMITING,DIARRHEA Physical Exam Vital Signs: Temp Pulse Resp BP Pulse Ox 97.2 F 94 19 100/58 L 100 04/06/20 12:44 04/06/20 14:00 04/06/20 12:44 04/06/20 12:44 04/06/20 12:44 Intake & Output 04/05/20 04/06/20 04/07/20 06:59 06:59 06:59 Intake Total 3695 3513 510 Output Total 700 1 Balance 3695 2813 509 Weight 85.4 kg 85.6 kg 85.4 kg General appearance: PRESENT: no acute distress Eye exam: PRESENT: PERRLA Mouth exam: PRESENT: dry mucosa Respiratory exam: PRESENT: clear to auscultation melisa Cardiovascular exam: PRESENT: +S1, +S2 GI/Abdominal exam: PRESENT: soft Neurological exam: PRESENT: alert Results Laboratory Results: 04/05/20 05:33 04/05/20 05:33 04/05/20 23:26 Stl C.difficile Tox PCR POSITIVE 04/04/20 12:27 Clean Catch Midstream Urine Culture - Final Citrobacter Koseri Urogenital Kyra Impressions: Abdomen CT 04/04/20 12:25 IMPRESSION: DIFFUSE FATTY INFILTRATION OF THE LIVER. OTHERWISE NO SIGNIFICANT OR ACUTE PROCESS IN THE ABDOMEN OR PELVIS. Assessment & Plan - Diagnosis (1) Recurrent colitis due to Clostridioides difficile Is this a current diagnosis for this admission?: Yes Plan: Recurrent colitis due to C. difficile, patient needs Dificid (2) Hypokalemia Is this a current diagnosis for this admission?: Yes Plan: Replenish potassium (3) Dehydration Is this a current diagnosis for this admission?: Yes Plan: Continue hydration with fluid - Time Time Spent with patient: 35 or more minutes Level of Care: MEDICAL Medications reviewed and adjusted accordingly: Yes Anticipated discharge: Home Anticipated DC Timeframe: Other
--- NOTE | 2020-04-06 19:43 | PDOC PROGRESS REPORT ---
Subjective Progress Note for:: 04/06/20 Subjective:: Patient seen by the bedside Reason For Visit: NAUSEA,VOMITING,DIARRHEA Physical Exam Vital Signs: Temp Pulse Resp BP Pulse Ox 97.2 F 94 19 100/58 L 100 04/06/20 12:44 04/06/20 14:00 04/06/20 12:44 04/06/20 12:44 04/06/20 12:44 Intake & Output 04/05/20 04/06/20 04/07/20 06:59 06:59 06:59 Intake Total 3695 3513 510 Output Total 700 1 Balance 3695 2813 509 Weight 85.4 kg 85.6 kg 85.4 kg General appearance: PRESENT: no acute distress Eye exam: PRESENT: PERRLA Respiratory exam: PRESENT: clear to auscultation melisa Cardiovascular exam: PRESENT: +S1, +S2 GI/Abdominal exam: PRESENT: soft Neurological exam: PRESENT: alert, CN II-XII grossly intact Results Laboratory Results: 04/05/20 05:33 04/05/20 05:33 04/05/20 23:26 Stl C.difficile Tox PCR POSITIVE 04/04/20 12:27 Clean Catch Midstream Urine Culture - Final Citrobacter Koseri Urogenital Kyra Impressions: Abdomen CT 04/04/20 12:25 IMPRESSION: DIFFUSE FATTY INFILTRATION OF THE LIVER. OTHERWISE NO SIGNIFICANT OR ACUTE PROCESS IN THE ABDOMEN OR PELVIS. Assessment & Plan - Diagnosis (1) Recurrent colitis due to Clostridioides difficile Is this a current diagnosis for this admission?: Yes Plan: Recurrent colitis due to C. difficile, patient needs Dificid (2) Hypokalemia Is this a current diagnosis for this admission?: Yes Plan: Replenish potassium (3) Dehydration Is this a current diagnosis for this admission?: Yes Plan: Change IV fluid to normal saline with potassium - Time Time Spent with patient: 25-34 minutes Level of Care: MEDICAL Medications reviewed and adjusted accordingly: Yes Anticipated discharge: Home Anticipated DC Timeframe: Other
[2020-04-06 20:41] LABS: ALBUMIN 2.2 g/dL (3.5-5.0); ALKALINE PHOSPHATASE 87 U/L (38-126); ANION GAP 8 (5-19); ASPARTATE AMINO TRANSFERASE 29 U/L (14-36); BILIRUBIN,DIRECT 0.3 mg/dL (0.0-0.4); BILIRUBIN,TOTAL 0.3 mg/dL (0.2-1.3); BLOOD UREA NITROGEN 3 mg/dL (7-20); CALCIUM 7.2 mg/dL (8.4-10.2); CARBON DIOXIDE 22 mmol/L (22-30); CHLORIDE 105 mmol/L (98-107); GLUCOSE 100 mg/dL (75-110); TOTAL PROTEIN 5.8 g/dL (6.3-8.2)
[2020-04-06] MEDS: ACETAMINOPHEN 325 MG TABLET PO PRN (21:46)
[2020-04-06] MEDS: POTASSI CL 40 MEQ/NS 1L 1,000 ML IV PRN (21:48)
[2020-04-07 08:40] LABS: ALBUMIN 2.3 g/dL (3.5-5.0); ALKALINE PHOSPHATASE 91 U/L (38-126); ANION GAP 8 (5-19); ASPARTATE AMINO TRANSFERASE 30 U/L (14-36); BILIRUBIN,DIRECT 0.3 mg/dL (0.0-0.4); BILIRUBIN,TOTAL 0.5 mg/dL (0.2-1.3); BLOOD UREA NITROGEN 3 mg/dL (7-20); CALCIUM 7.3 mg/dL (8.4-10.2); CARBON DIOXIDE 22 mmol/L (22-30); CHLORIDE 105 mmol/L (98-107); GLUCOSE 86 mg/dL (75-110); POTASSIUM 3.5 mmol/L (3.6-5.0); TOTAL PROTEIN 6.2 g/dL (6.3-8.2)
[2020-04-07] MEDS: PANTOPRAZOLE SODIUM 40 MG TABLET.DR PO SCH (11:06)
[2020-04-07] MEDS: FIDAXOMICIN 200 MG TABLET PO SCH ×2 (11:09→18:36)
[2020-04-07] MEDS: ENOXAPARIN SODIUM INJ 40 MG/0.4 ML DISP.SYRIN SUBCUT SCH (11:09)
--- NOTE | 2020-04-07 20:26 | PDOC PROGRESS REPORT ---
Subjective Progress Note for:: 04/07/20 Subjective:: Patient seen by the bedside, she is responding to Dificid the stool is getting formed Reason For Visit: NAUSEA,VOMITING,DIARRHEA Physical Exam Vital Signs: Temp Pulse Resp BP Pulse Ox 98.2 F 91 17 90/59 L 100 04/07/20 19:34 04/07/20 19:34 04/07/20 19:34 04/07/20 19:34 04/07/20 19:34 Intake & Output 04/06/20 04/07/20 04/08/20 06:59 06:59 06:59 Intake Total 3513 1060 1700 Output Total 700 3 4 Balance 2813 1057 1696 Weight 85.6 kg 85.4 kg General appearance: PRESENT: no acute distress Eye exam: PRESENT: PERRLA Respiratory exam: PRESENT: clear to auscultation melisa Cardiovascular exam: PRESENT: +S1, +S2 GI/Abdominal exam: PRESENT: soft Results Laboratory Results: 04/05/20 05:33 04/07/20 07:45 04/06/20 04/07/20 20:10 07:45 Sodium 134.8 L 135.1 L Potassium 3.0 L* 3.5 L Chloride 105 105 Carbon Dioxide 22 22 Anion Gap 8 8 BUN 3 L 3 L Creatinine 0.61 0.53 Est GFR ( Amer) > 60 > 60 Glucose 100 86 Calcium 7.2 L 7.3 L Total Bilirubin 0.3 0.5 AST 29 30 Alkaline Phosphatase 87 91 Total Protein 5.8 L 6.2 L Albumin 2.2 L 2.3 L Impressions: Abdomen CT 04/04/20 12:25 IMPRESSION: DIFFUSE FATTY INFILTRATION OF THE LIVER. OTHERWISE NO SIGNIFICANT OR ACUTE PROCESS IN THE ABDOMEN OR PELVIS. Assessment & Plan - Diagnosis (1) Recurrent colitis due to Clostridioides difficile Is this a current diagnosis for this admission?: Yes Plan: She needs Dificid for 10 days, this medication is very expensive, clearly she cannot afford this medication outpatient, she presently does not have Medicaid, she is going through the process of reapplication for Medicaid insurance. She may have to stay in hospital for 10 days (2) Hypokalemia Is this a current diagnosis for this admission?: Yes Plan: Replenish potassium (3) Dehydration Is this a current diagnosis for this admission?: Yes Plan: Change IV fluid to normal saline with potassium - Time Time Spent with patient: 35 or more minutes Level of Care: MEDICAL Anticipated discharge: Home Anticipated DC Timeframe: Other - 10 days
[2020-04-08] MEDS: POTASSI CL 40 MEQ/NS 1L 1,000 ML IV PRN ×2 (02:33→17:56)
[2020-04-08] MEDS: PANTOPRAZOLE SODIUM 40 MG TABLET.DR PO SCH (06:04)
[2020-04-08 08:23] LABS: ALBUMIN 2.3 g/dL (3.5-5.0); ALKALINE PHOSPHATASE 87 U/L (38-126); ANION GAP 6 (5-19); ASPARTATE AMINO TRANSFERASE 31 U/L (14-36); BILIRUBIN,DIRECT 0.4 mg/dL (0.0-0.4); BILIRUBIN,TOTAL 0.6 mg/dL (0.2-1.3); BLOOD UREA NITROGEN 3 mg/dL (7-20); CALCIUM 7.5 mg/dL (8.4-10.2); CARBON DIOXIDE 23 mmol/L (22-30); CHLORIDE 107 mmol/L (98-107); GLUCOSE 88 mg/dL (75-110); POTASSIUM 4.1 mmol/L (3.6-5.0); TOTAL PROTEIN 6.2 g/dL (6.3-8.2)
[2020-04-08] MEDS: FIDAXOMICIN 200 MG TABLET PO SCH ×2 (11:20→17:55)
[2020-04-08] MEDS: ENOXAPARIN SODIUM INJ 40 MG/0.4 ML DISP.SYRIN SUBCUT SCH (11:20)
--- NOTE | 2020-04-08 22:28 | PDOC PROGRESS REPORT ---
Subjective Progress Note for:: 04/08/20 Subjective:: Patient seen by the bedside, she is responding to Dificid the stool is getting formed Reason For Visit: NAUSEA,VOMITING,DIARRHEA Physical Exam Vital Signs: Temp Pulse Resp BP Pulse Ox 98.1 F 86 18 104/81 100 04/08/20 19:52 04/08/20 19:52 04/08/20 19:52 04/08/20 19:52 04/08/20 19:52 Intake & Output 04/07/20 04/08/20 04/09/20 06:59 06:59 06:59 Intake Total 1060 2700 1000 Output Total 3 4 Balance 1057 2696 1000 Weight 85.4 kg 85.4 kg General appearance: PRESENT: no acute distress Eye exam: PRESENT: PERRLA Respiratory exam: PRESENT: clear to auscultation melisa Cardiovascular exam: PRESENT: +S1, +S2 GI/Abdominal exam: PRESENT: soft Neurological exam: PRESENT: alert Results Laboratory Results: 04/05/20 05:33 04/08/20 07:40 04/08/20 07:40 Sodium 136.2 L Potassium 4.1 Chloride 107 Carbon Dioxide 23 Anion Gap 6 BUN 3 L Creatinine 0.45 L Est GFR ( Amer) > 60 Glucose 88 Calcium 7.5 L Total Bilirubin 0.6 AST 31 Alkaline Phosphatase 87 Total Protein 6.2 L Albumin 2.3 L Impressions: Abdomen CT 04/04/20 12:25 IMPRESSION: DIFFUSE FATTY INFILTRATION OF THE LIVER. OTHERWISE NO SIGNIFICANT OR ACUTE PROCESS IN THE ABDOMEN OR PELVIS. Assessment & Plan - Diagnosis (1) Recurrent colitis due to Clostridioides difficile Is this a current diagnosis for this admission?: Yes Plan: She needs Dificid for 10 days, this medication is very expensive, clearly she cannot afford this medication outpatient, she presently does not have Medicaid, she is going through the process of reapplication for Medicaid insurance. She may have to stay in hospital for 10 days (2) Hypokalemia Is this a current diagnosis for this admission?: Yes Plan: Replenish potassium (3) Dehydration Is this a current diagnosis for this admission?: Yes Plan: Change IV fluid to normal saline with potassium - Time Time Spent with patient: 25-34 minutes Level of Care: MEDICAL Medications reviewed and adjusted accordingly: Yes Anticipated discharge: Home Anticipated DC Timeframe: within 72 hours
[2020-04-09] MEDS: POTASSI CL 40 MEQ/NS 1L 1,000 ML IV PRN (05:54)
[2020-04-09] MEDS: PANTOPRAZOLE SODIUM 40 MG TABLET.DR PO SCH (05:54)
[2020-04-09] MEDS: ENOXAPARIN SODIUM INJ 40 MG/0.4 ML DISP.SYRIN SUBCUT SCH (10:00)
[2020-04-09] MEDS: FIDAXOMICIN 200 MG TABLET PO SCH ×2 (10:00→17:16)
[2020-04-09 12:57] LABS: BLOOD UREA NITROGEN 2 mg/dL (7-20); CALCIUM 7.4 mg/dL (8.4-10.2); CARBON DIOXIDE 26 mmol/L (22-30); CHLORIDE 107 mmol/L (98-107); GLUCOSE 87 mg/dL (75-110); POTASSIUM 3.9 mmol/L (3.6-5.0)
[2020-04-09 12:58] LABS: ALBUMIN 2.4 g/dL (3.5-5.0); ALKALINE PHOSPHATASE 90 U/L (38-126); ASPARTATE AMINO TRANSFERASE 35 U/L (14-36); BILIRUBIN,DIRECT 0.3 mg/dL (0.0-0.4); BILIRUBIN,TOTAL 0.3 mg/dL (0.2-1.3); TOTAL PROTEIN 6.2 g/dL (6.3-8.2)
[2020-04-09 13:23] LABS: ANION GAP 4 (5-19)
--- NOTE | 2020-04-09 21:35 | PDOC PROGRESS REPORT ---
Subjective Progress Note for:: 04/09/20 Subjective:: Patient seen by the bedside, she is responding to Dificid the stool is well formed ,there is no diarrhea Reason For Visit: NAUSEA,VOMITING,DIARRHEA Physical Exam Vital Signs: Temp Pulse Resp BP Pulse Ox 97.7 F 87 16 98/56 L 100 04/09/20 15:56 04/09/20 15:56 04/09/20 15:56 04/09/20 15:56 04/09/20 15:56 Intake & Output 04/08/20 04/09/20 04/10/20 06:59 06:59 06:59 Intake Total 2700 2220 1000 Output Total 4 Balance 2696 2220 1000 Weight 85.4 kg 89.5 kg General appearance: PRESENT: no acute distress Eye exam: PRESENT: PERRLA Respiratory exam: PRESENT: clear to auscultation melisa Cardiovascular exam: PRESENT: +S1, +S2 Neurological exam: PRESENT: alert Results Laboratory Results: 04/05/20 05:33 04/09/20 11:39 04/09/20 11:39 Sodium 137.2 Potassium 3.9 Chloride 107 Carbon Dioxide 26 Anion Gap 4 L BUN 2 L Creatinine 0.46 L Est GFR ( Amer) > 60 Glucose 87 Calcium 7.4 L Total Bilirubin 0.3 AST 35 Alkaline Phosphatase 90 Total Protein 6.2 L Albumin 2.4 L Impressions: Abdomen CT 04/04/20 12:25 IMPRESSION: DIFFUSE FATTY INFILTRATION OF THE LIVER. OTHERWISE NO SIGNIFICANT OR ACUTE PROCESS IN THE ABDOMEN OR PELVIS. Assessment & Plan - Diagnosis (1) Recurrent colitis due to Clostridioides difficile Is this a current diagnosis for this admission?: Yes Plan: She needs Dificid for 10 days, this medication is very expensive, clearly she c annot afford this medication outpatient, she presently does not have Medicaid, she is going through the process of reapplication for Medicaid insurance. She may have to stay in hospital for 10 days (2) Hypokalemia Is this a current diagnosis for this admission?: Yes Plan: resolved (3) Dehydration Is this a current diagnosis for this admission?: Yes Plan: Change IV fluid to normal saline with potassium - Time Time Spent with patient: 25-34 minutes Level of Care: IMCU Medications reviewed and adjusted accordingly: Yes Anticipated discharge: Home Anticipated DC Timeframe: within 72 hours
[2020-04-10] MEDS: PANTOPRAZOLE SODIUM 40 MG TABLET.DR PO SCH (05:19)
[2020-04-10] MEDS: ENOXAPARIN SODIUM INJ 40 MG/0.4 ML DISP.SYRIN SUBCUT SCH (09:49)
[2020-04-10] MEDS: FIDAXOMICIN 200 MG TABLET PO SCH ×2 (09:51→18:01)
[2020-04-10 12:09] LABS: ALBUMIN 2.4 g/dL (3.5-5.0); ALKALINE PHOSPHATASE 90 U/L (38-126); ANION GAP 7 (5-19); ASPARTATE AMINO TRANSFERASE 26 U/L (14-36); BILIRUBIN,DIRECT 0.2 mg/dL (0.0-0.4); BILIRUBIN,TOTAL 0.3 mg/dL (0.2-1.3); BLOOD UREA NITROGEN 4 mg/dL (7-20); CALCIUM 7.8 mg/dL (8.4-10.2); CARBON DIOXIDE 25 mmol/L (22-30); CHLORIDE 106 mmol/L (98-107); GLUCOSE 82 mg/dL (75-110); POTASSIUM 3.7 mmol/L (3.6-5.0); TOTAL PROTEIN 6.1 g/dL (6.3-8.2)
--- NOTE | 2020-04-10 14:12 | PDOC PROGRESS REPORT ---
Subjective Progress Note for:: 04/10/20 Subjective:: Patient seen by the bedside no more diarrhea, she could be discharged home but because she has no insurance and she cannot afford Dificid so she has to stay for 10 days Reason For Visit: NAUSEA,VOMITING,DIARRHEA Physical Exam Vital Signs: Temp Pulse Resp BP Pulse Ox 97.9 F 92 16 114/60 74 L 04/10/20 12:24 04/10/20 12:24 04/10/20 12:24 04/10/20 12:24 04/10/20 12:24 Intake & Output 04/09/20 04/10/20 04/11/20 06:59 06:59 06:59 Intake Total 2220 1720 Balance 2220 1720 Weight 89.5 kg 89.5 kg General appearance: PRESENT: no acute distress Eye exam: PRESENT: PERRLA Respiratory exam: PRESENT: clear to auscultation melisa Cardiovascular exam: PRESENT: +S1, +S2 GI/Abdominal exam: PRESENT: soft Neurological exam: PRESENT: alert Results Laboratory Results: 04/05/20 05:33 04/10/20 11:20 04/10/20 11:20 Sodium 138.0 Potassium 3.7 Chloride 106 Carbon Dioxide 25 Anion Gap 7 BUN 4 L Creatinine 0.54 Est GFR ( Amer) > 60 Glucose 82 Calcium 7.8 L Total Bilirubin 0.3 AST 26 Alkaline Phosphatase 90 Total Protein 6.1 L Albumin 2.4 L Impressions: Abdomen CT 04/04/20 12:25 IMPRESSION: DIFFUSE FATTY INFILTRATION OF THE LIVER. OTHERWISE NO SIGNIFICANT OR ACUTE PROCESS IN THE ABDOMEN OR PELVIS. Assessment & Plan - Diagnosis (1) Recurrent colitis due to Clostridioides difficile Is this a current diagnosis for this admission?: Yes Plan: She needs Dificid for 10 days, this medication is very expensive, clearly she cannot afford this medication outpatient, she presently does not have Medicaid, she is going through the process of reapplication for Medicaid insurance. She may have to stay in hospital for 10 days (2) Hypokalemia Is this a current diagnosis for this admission?: Yes Plan: resolved (3) Dehydration Is this a current diagnosis for this admission?: Yes Plan: Change IV fluid to normal saline with potassium - Time Time Spent with patient: 35 or more minutes Level of Care: MEDICAL Medications reviewed and adjusted accordingly: Yes Anticipated discharge: Home Anticipated DC Timeframe: within 72 hours
[2020-04-11] MEDS: PANTOPRAZOLE SODIUM 40 MG TABLET.DR PO SCH (05:17)
[2020-04-11] MEDS: ENOXAPARIN SODIUM INJ 40 MG/0.4 ML DISP.SYRIN SUBCUT SCH (09:04)
[2020-04-11] MEDS: FIDAXOMICIN 200 MG TABLET PO SCH ×2 (10:09→17:16)
[2020-04-11 12:16] LABS: ALBUMIN 2.3 g/dL (3.5-5.0); ALKALINE PHOSPHATASE 85 U/L (38-126); ANION GAP 8 (5-19); ASPARTATE AMINO TRANSFERASE 26 U/L (14-36); BILIRUBIN,DIRECT 0.2 mg/dL (0.0-0.4); BILIRUBIN,TOTAL 0.4 mg/dL (0.2-1.3); BLOOD UREA NITROGEN 6 mg/dL (7-20); CALCIUM 7.7 mg/dL (8.4-10.2); CARBON DIOXIDE 25 mmol/L (22-30); CHLORIDE 104 mmol/L (98-107); GLUCOSE 83 mg/dL (75-110); POTASSIUM 3.9 mmol/L (3.6-5.0); TOTAL PROTEIN 5.6 g/dL (6.3-8.2)
--- NOTE | 2020-04-11 13:57 | PDOC PROGRESS REPORT ---
Subjective Progress Note for:: 04/11/20 Subjective:: Patient seen by the bedside no more diarrhea, she could be discharged home but because she has no insurance and she cannot afford Dificid so she has to stay for 10 days Reason For Visit: NAUSEA,VOMITING,DIARRHEA Physical Exam Vital Signs: Temp Pulse Resp BP Pulse Ox 97.8 F 92 16 105/77 100 04/11/20 11:53 04/11/20 11:53 04/11/20 11:53 04/11/20 11:53 04/11/20 11:57 Intake & Output 04/10/20 04/11/20 04/12/20 06:59 06:59 06:59 Intake Total 1720 1097 567 Balance 1720 1097 567 Weight 89.5 kg 89.5 kg General appearance: PRESENT: no acute distress Eye exam: PRESENT: PERRLA Respiratory exam: PRESENT: clear to auscultation melisa Cardiovascular exam: PRESENT: +S1, +S2 Results Laboratory Results: 04/05/20 05:33 04/11/20 11:25 04/11/20 11:25 Sodium 136.6 L Potassium 3.9 Chloride 104 Carbon Dioxide 25 Anion Gap 8 BUN 6 L Creatinine 0.49 L Est GFR ( Amer) > 60 Glucose 83 Calcium 7.7 L Total Bilirubin 0.4 AST 26 Alkaline Phosphatase 85 Total Protein 5.6 L Albumin 2.3 L Impressions: Abdomen CT 04/04/20 12:25 IMPRESSION: DIFFUSE FATTY INFILTRATION OF THE LIVER. OTHERWISE NO SIGNIFICANT OR ACUTE PROCESS IN THE ABDOMEN OR PELVIS. Assessment & Plan - Diagnosis (1) Recurrent colitis due to Clostridioides difficile Is this a current diagnosis for this admission?: Yes Plan: She needs Dificid for 10 days, this medication is very expensive, clearly she cannot afford this medication outpatient, she presently does not have Medicaid, she is going through the process of reapplication for Medicaid insurance. She may have to stay in hospital for 10 days (2) Hypokalemia Is this a current diagnosis for this admission?: Yes Plan: resolved (3) Dehydration Is this a current diagnosis for this admission?: Yes - Time Time Spent with patient: 15-24 minutes Level of Care: MEDICAL Anticipated discharge: Home
[2020-04-11] MEDS: ACETAMINOPHEN 325 MG TABLET PO PRN (19:41)
[2020-04-12] MEDS: PANTOPRAZOLE SODIUM 40 MG TABLET.DR PO SCH (05:42)
[2020-04-12 08:39] LABS: ALBUMIN 2.1 g/dL (3.5-5.0); ALKALINE PHOSPHATASE 86 U/L (38-126); ANION GAP 6 (5-19); ASPARTATE AMINO TRANSFERASE 24 U/L (14-36); BILIRUBIN,DIRECT 0.2 mg/dL (0.0-0.4); BILIRUBIN,TOTAL 0.4 mg/dL (0.2-1.3); BLOOD UREA NITROGEN 7 mg/dL (7-20); CALCIUM 7.6 mg/dL (8.4-10.2); CARBON DIOXIDE 24 mmol/L (22-30); CHLORIDE 107 mmol/L (98-107); GLUCOSE 90 mg/dL (75-110); POTASSIUM 3.6 mmol/L (3.6-5.0); TOTAL PROTEIN 5.5 g/dL (6.3-8.2)
[2020-04-12] MEDS: FIDAXOMICIN 200 MG TABLET PO SCH ×2 (10:57→17:50)
[2020-04-12] MEDS: ENOXAPARIN SODIUM INJ 40 MG/0.4 ML DISP.SYRIN SUBCUT SCH (10:57)
[2020-04-12] MEDS: ACETAMINOPHEN 325 MG TABLET PO PRN ×2 (11:02→22:13)
--- NOTE | 2020-04-12 18:43 | PDOC PROGRESS REPORT ---
Subjective Progress Note for:: 04/12/20 Subjective:: Patient seen by the bedside no more diarrhea, she could be discharged home but because she has no insurance and she cannot afford Dificid so she has to stay for 10 days Reason For Visit: NAUSEA,VOMITING,DIARRHEA Physical Exam Vital Signs: Temp Pulse Resp BP Pulse Ox 97.3 F 99 18 96/73 L 100 04/12/20 15:35 04/12/20 15:35 04/12/20 15:35 04/12/20 15:35 04/12/20 15:35 Intake & Output 04/11/20 04/12/20 04/13/20 06:59 06:59 06:59 Intake Total 1097 1047 997 Balance 1097 1047 997 Weight 89.5 kg 89.6 kg 88.6 kg General appearance: PRESENT: no acute distress Eye exam: PRESENT: PERRLA Respiratory exam: PRESENT: clear to auscultation melisa Cardiovascular exam: PRESENT: +S1, +S2 GI/Abdominal exam: PRESENT: soft Neurological exam: PRESENT: alert Results Laboratory Results: 04/05/20 05:33 04/12/20 07:50 04/12/20 07:50 Sodium 137.3 Potassium 3.6 Chloride 107 Carbon Dioxide 24 Anion Gap 6 BUN 7 Creatinine 0.43 L Est GFR ( Amer) > 60 Glucose 90 Calcium 7.6 L Total Bilirubin 0.4 AST 24 Alkaline Phosphatase 86 Total Protein 5.5 L Albumin 2.1 L Impressions: Abdomen CT 04/04/20 12:25 IMPRESSION: DIFFUSE FATTY INFILTRATION OF THE LIVER. OTHERWISE NO SIGNIFICANT OR ACUTE PROCESS IN THE ABDOMEN OR PELVIS. Assessment & Plan - Diagnosis (1) Recurrent colitis due to Clostridioides difficile Is this a current diagnosis for this admission?: Yes Plan: She needs Dificid for 10 days, this medication is very expensive, clearly she cannot afford this medication outpatient, she presently does not have Medicaid, she is going through the process of reapplication for Medicaid insurance. She may have to stay in hospital for 10 days (2) Hypokalemia Is this a current diagnosis for this admission?: Yes Plan: resolved (3) Dehydration Is this a current diagnosis for this admission?: Yes - Time Time Spent with patient: 25-34 minutes Level of Care: IMCU Medications reviewed and adjusted accordingly: Yes Anticipated discharge: Home Anticipated DC Timeframe: within 72 hours - Inpatient Certification Based on my medical assessment, after consideration of the patient's comorbidities, presenting symptoms, or acuity I expect that the services needed warrant INPATIENT care.: Yes I certify that my determination is in accordance with my understanding of Medicare's requirements for reasonable and necessary INPATIENT services [42 CFR 412.3e].: Yes
[2020-04-13] MEDS: PANTOPRAZOLE SODIUM 40 MG TABLET.DR PO SCH (06:10)
[2020-04-13] MEDS: ACETAMINOPHEN 325 MG TABLET PO PRN ×3 (08:20→21:40)
[2020-04-13] MEDS: ENOXAPARIN SODIUM INJ 40 MG/0.4 ML DISP.SYRIN SUBCUT SCH (09:53)
[2020-04-13] MEDS: FIDAXOMICIN 200 MG TABLET PO SCH ×2 (09:58→17:34)
[2020-04-13 10:06] LABS: ALBUMIN 2.5 g/dL (3.5-5.0); ALKALINE PHOSPHATASE 75 U/L (38-126); ANION GAP 10 (5-19); ASPARTATE AMINO TRANSFERASE 30 U/L (14-36); BILIRUBIN,DIRECT 0.4 mg/dL (0.0-0.4); BILIRUBIN,TOTAL 0.4 mg/dL (0.2-1.3); BLOOD UREA NITROGEN 7 mg/dL (7-20); CALCIUM 7.8 mg/dL (8.4-10.2); CARBON DIOXIDE 19 mmol/L (22-30); CHLORIDE 109 mmol/L (98-107); GLUCOSE 81 mg/dL (75-110); POTASSIUM 3.5 mmol/L (3.6-5.0); TOTAL PROTEIN 6.4 g/dL (6.3-8.2)
--- NOTE | 2020-04-13 21:03 | PDOC PROGRESS REPORT ---
Subjective Progress Note for:: 04/13/20 Subjective:: Patient seen by the bedside no more diarrhea, she could be discharged home but because she has no insurance and she cannot afford Dificid so she has to stay for 10 days Reason For Visit: NAUSEA,VOMITING,DIARRHEA Physical Exam Vital Signs: Temp Pulse Resp BP Pulse Ox 98.1 F 96 18 104/51 L 100 04/13/20 16:56 04/13/20 19:00 04/13/20 16:56 04/13/20 16:56 04/13/20 16:56 Intake & Output 04/12/20 04/13/20 04/14/20 06:59 06:59 06:59 Intake Total 1047 1747 860 Balance 1047 1747 860 Weight 89.6 kg 91.3 kg 88.6 kg General appearance: PRESENT: no acute distress, well-developed, well-nourished Head exam: PRESENT: atraumatic, normocephalic Eye exam: PRESENT: conjunctiva pink, EOMI, PERRLA Ear exam: PRESENT: normal external ear exam Mouth exam: PRESENT: moist, tongue midline Neck exam: PRESENT: full ROM Respiratory exam: PRESENT: clear to auscultation melisa Cardiovascular exam: PRESENT: RRR, +S1, +S2 Pulses: PRESENT: normal dorsalis pedis pul, +2 pedal pulses bilateral Vascular exam: PRESENT: normal capillary refill GI/Abdominal exam: PRESENT: normal bowel sounds, soft Rectal exam: PRESENT: deferred Neurological exam: PRESENT: alert Psychiatric exam: PRESENT: appropriate affect, normal mood Skin exam: PRESENT: dry, intact, warm. ABSENT: cyanosis, rash Results Laboratory Results: 04/05/20 05:33 04/13/20 09:27 04/13/20 09:27 Sodium 138.0 Potassium 3.5 L Chloride 109 H Carbon Dioxide 19 L Anion Gap 10 BUN 7 Creatinine 0.51 L Est GFR ( Amer) > 60 Glucose 81 Calcium 7.8 L Total Bilirubin 0.4 AST 30 Alkaline Phosphatase 75 Total Protein 6.4 Albumin 2.5 L Impressions: Abdomen CT 04/04/20 12:25 IMPRESSION: DIFFUSE FATTY INFILTRATION OF THE LIVER. OTHERWISE NO SIGNIFICANT OR ACUTE PROCESS IN THE ABDOMEN OR PELVIS. Assessment & Plan - Diagnosis (1) Recurrent colitis due to Clostridioides difficile Is this a current diagnosis for this admission?: Yes Plan: She needs Dificid for 10 days, this medication is very expensive, clearly she cannot afford this medication outpatient, she presently does not have Medicaid, she is going through the process of reapplication for Medicaid insurance. She may have to stay in hospital for 10 days (2) Hypokalemia Is this a current diagnosis for this admission?: Yes Plan: resolved (3) Dehydration Is this a current diagnosis for this admission?: Yes - Time Time Spent with patient: 15-24 minutes Level of Care: IMCU Medications reviewed and adjusted accordingly: Yes Anticipated discharge: Home
[2020-04-14] MEDS: PANTOPRAZOLE SODIUM 40 MG TABLET.DR PO SCH (05:42)
[2020-04-14] MEDS: ACETAMINOPHEN 325 MG TABLET PO PRN ×2 (05:42→19:41)
[2020-04-14 11:05] LABS: ALBUMIN 2.4 g/dL (3.5-5.0); ALKALINE PHOSPHATASE 72 U/L (38-126); ANION GAP 10 (5-19); ASPARTATE AMINO TRANSFERASE 31 U/L (14-36); BILIRUBIN,DIRECT 0.2 mg/dL (0.0-0.4); BILIRUBIN,TOTAL 0.3 mg/dL (0.2-1.3); BLOOD UREA NITROGEN 8 mg/dL (7-20); CARBON DIOXIDE 22 mmol/L (22-30); CHLORIDE 107 mmol/L (98-107); GLUCOSE 84 mg/dL (75-110); POTASSIUM 3.5 mmol/L (3.6-5.0); TOTAL PROTEIN 6.1 g/dL (6.3-8.2)
[2020-04-14] MEDS: ENOXAPARIN SODIUM INJ 40 MG/0.4 ML DISP.SYRIN SUBCUT SCH (11:14)
[2020-04-14] MEDS: FIDAXOMICIN 200 MG TABLET PO SCH ×2 (11:14→17:45)
--- NOTE | 2020-04-14 20:12 | PDOC PROGRESS REPORT ---
Subjective Progress Note for:: 04/14/20 Subjective:: Patient seen by the bedside no more diarrhea, she could be discharged home but because she has no insurance and she cannot afford Dificid so she has to stay for 10 days Reason For Visit: NAUSEA,VOMITING,DIARRHEA Physical Exam Vital Signs: Temp Pulse Resp BP Pulse Ox 99.1 F 108 H 16 131/60 H 100 04/14/20 19:13 04/14/20 19:13 04/14/20 19:13 04/14/20 19:13 04/14/20 19:13 Intake & Output 04/13/20 04/14/20 04/15/20 06:59 06:59 06:59 Intake Total 1747 1460 720 Balance 1747 1460 720 Weight 91.3 kg 92 kg General appearance: PRESENT: no acute distress Eye exam: PRESENT: PERRLA Respiratory exam: PRESENT: clear to auscultation melisa Cardiovascular exam: PRESENT: +S1, +S2 GI/Abdominal exam: PRESENT: soft Neurological exam: PRESENT: alert Results Laboratory Results: 04/05/20 05:33 04/14/20 10:02 04/14/20 10:02 Sodium 138.5 Potassium 3.5 L Chloride 107 Carbon Dioxide 22 Anion Gap 10 BUN 8 Creatinine 0.51 L Est GFR ( Amer) > 60 Glucose 84 Calcium 8.0 L Total Bilirubin 0.3 AST 31 Alkaline Phosphatase 72 Total Protein 6.1 L Albumin 2.4 L Impressions: Abdomen CT 04/04/20 12:25 IMPRESSION: DIFFUSE FATTY INFILTRATION OF THE LIVER. OTHERWISE NO SIGNIFICANT OR ACUTE PROCESS IN THE ABDOMEN OR PELVIS. Assessment & Plan - Diagnosis (1) Recurrent colitis due to Clostridioides difficile Is this a current diagnosis for this admission?: Yes Plan: She needs Dificid for 10 days, this medication is very expensive, clearly she c annot afford this medication outpatient, she presently does not have Medicaid, she is going through the process of reapplication for Medicaid insurance. She may have to stay in hospital for 10 days (2) Hypokalemia Is this a current diagnosis for this admission?: Yes Plan: resolved (3) Dehydration Is this a current diagnosis for this admission?: Yes - Time Time Spent with patient: 25-34 minutes Level of Care: IMCU Medications reviewed and adjusted accordingly: Yes Anticipated discharge: Home
[2020-04-15] MEDS: PANTOPRAZOLE SODIUM 40 MG TABLET.DR PO SCH (06:05)
[2020-04-15 09:53] LABS: ALBUMIN 2.5 g/dL (3.5-5.0); ALKALINE PHOSPHATASE 78 U/L (38-126); ANION GAP 7 (5-19); ASPARTATE AMINO TRANSFERASE 35 U/L (14-36); BILIRUBIN,DIRECT 0.3 mg/dL (0.0-0.4); BILIRUBIN,TOTAL 0.4 mg/dL (0.2-1.3); BLOOD UREA NITROGEN 5 mg/dL (7-20); CALCIUM 7.7 mg/dL (8.4-10.2); CARBON DIOXIDE 24 mmol/L (22-30); CHLORIDE 107 mmol/L (98-107); GLUCOSE 99 mg/dL (75-110); POTASSIUM 3.2 mmol/L (3.6-5.0); TOTAL PROTEIN 6.2 g/dL (6.3-8.2)
[2020-04-15] MEDS: ENOXAPARIN SODIUM INJ 40 MG/0.4 ML DISP.SYRIN SUBCUT SCH (10:45)
[2020-04-15] MEDS: FIDAXOMICIN 200 MG TABLET PO SCH ×2 (10:47→17:49)
[2020-04-15] MEDS: ACETAMINOPHEN 325 MG TABLET PO PRN ×2 (10:47→23:18)
--- NOTE | 2020-04-15 22:03 | PDOC PROGRESS REPORT ---
Subjective Progress Note for:: 04/15/20 Subjective:: Patient seen by the bedside no more diarrhea, she could be discharged home but because she has no insurance and she cannot afford Dificid so she has to stay for 10 days Reason For Visit: NAUSEA,VOMITING,DIARRHEA Physical Exam Vital Signs: Temp Pulse Resp BP Pulse Ox 97.9 F 77 17 97/51 L 98 04/15/20 11:51 04/15/20 11:51 04/15/20 11:51 04/15/20 11:51 04/15/20 11:51 Intake & Output 04/14/20 04/15/20 04/16/20 06:59 06:59 06:59 Intake Total 1460 1380 1180 Balance 1460 1380 1180 Weight 92 kg 93 kg 90.5 kg Results Laboratory Results: 04/05/20 05:33 04/15/20 08:50 04/15/20 08:50 Sodium 137.8 Potassium 3.2 L Chloride 107 Carbon Dioxide 24 Anion Gap 7 BUN 5 L Creatinine 0.51 L Est GFR ( Amer) > 60 Glucose 99 Calcium 7.7 L Total Bilirubin 0.4 AST 35 Alkaline Phosphatase 78 Total Protein 6.2 L Albumin 2.5 L Impressions: Abdomen CT 04/04/20 12:25 IMPRESSION: DIFFUSE FATTY INFILTRATION OF THE LIVER. OTHERWISE NO SIGNIFICANT OR ACUTE PROCESS IN THE ABDOMEN OR PELVIS. Assessment & Plan - Diagnosis (1) Recurrent colitis due to Clostridioides difficile Is this a current diagnosis for this admission?: Yes Plan: She needs Dificid for 10 days, this medication is very expensive, clearly she cannot afford this medication outpatient, she presently does not have Medicaid, she is going through the process of reapplication for Medicaid insurance. She may have to stay in hospital for 10 days (2) Hypokalemia Is this a current diagnosis for this admission?: Yes Plan: resolved (3) Dehydration Is this a current diagnosis for this admission?: Yes - Time Time Spent with patient: 15-24 minutes Level of Care: IMCU Medications reviewed and adjusted accordingly: Yes Anticipated discharge: Home
[2020-04-16] MEDS: PANTOPRAZOLE SODIUM 40 MG TABLET.DR PO SCH (05:49)
[2020-04-16 06:30] LABS: ALBUMIN 2.4 g/dL (3.5-5.0); ALKALINE PHOSPHATASE 70 U/L (38-126); ANION GAP 6 (5-19); ASPARTATE AMINO TRANSFERASE 35 U/L (14-36); BILIRUBIN,DIRECT 0.3 mg/dL (0.0-0.4); BILIRUBIN,TOTAL 0.5 mg/dL (0.2-1.3); BLOOD UREA NITROGEN 5 mg/dL (7-20); CALCIUM 7.7 mg/dL (8.4-10.2); CARBON DIOXIDE 25 mmol/L (22-30); CHLORIDE 107 mmol/L (98-107); GLUCOSE 86 mg/dL (75-110); POTASSIUM 3.4 mmol/L (3.6-5.0); TOTAL PROTEIN 5.8 g/dL (6.3-8.2)
[2020-04-16] MEDS: ENOXAPARIN SODIUM INJ 40 MG/0.4 ML DISP.SYRIN SUBCUT SCH (10:05)
[2020-04-16] MEDS: FIDAXOMICIN 200 MG TABLET PO SCH (10:06)
[2020-04-16] MEDS: ACETAMINOPHEN 325 MG TABLET PO PRN (16:30)
[2020-04-16 16:37] VITALS: BP 111/62
--- NOTE | 2020-04-16 20:58 | PDOC DISCHARGE SUMMARY ---
Impression - Admit/DC Date/PCP Admission Date/Primary Care Provider: 04/04/20 18:10 SNEHAL VERA MD Discharge Date: 04/16/20 - Discharge Diagnosis (1) Recurrent colitis due to Clostridioides difficile Is this a current diagnosis for this admission?: Yes (2) Hypokalemia Is this a current diagnosis for this admission?: Yes (3) Dehydration Is this a current diagnosis for this admission?: Yes - Additional Information Referrals: SNEHAL VERA MD [Primary Care Provider] - Follow up as needed Home Medications: Amlodipine Besylate [Norvasc 10 mg Tablet] 10 mg PO DAILY 10/04/18 Clonidine HCl [Catapres 0.1 mg Tablet] 0.1 mg PO DAILY 10/04/18 Hydrochlorothiazide [Hydrodiuril 25 mg Tablet] 25 mg PO DAILY 10/04/18 Albuterol Sulfate [Proair HFA Inhalation Aerosol 8.5 gm MDI] 2 puff IH Q4HP PRN 12/04/18 Ammonium Lactate [Lac-Hydrin 12% Lotion 225Gm/Bottle] 1 applic TP BID 03/22/20 Gabapentin [Neurontin 300 mg Capsule] 300 mg PO QHS 03/22/20 Montelukast Sodium [Singulair 10 mg Tablet] 10 mg PO QHS 03/22/20 Omeprazole 40 mg PO QAM 03/22/20 Topiramate [Topamax 100 mg Tablet] 100 mg PO DAILY 03/22/20 History of Present Illiness History of Present Illness: PANCHO ARCE is a 60 year old female, She was recently admitted for the management of Clostridium difficile colitis associated with severe electrolyte derangement, she was treated for prolonged time in the hospital with p.o. vancomycin, she returned today with continued diarrhea hypokalemia and also C. difficile colitis so clearly this is a recurrent C. difficile colitis Hospital Course Hospital Course: Patient was admitted for the management of recurrent C. difficile colitis, she was treated with Dificid on this admission with good result. She also had electrolyte derangement with hypokalemia, this was replaced She was treated for 10 days partly because she has no medical insurance and she cannot afford the medication outpatient. Physical Exam Vital Signs: Temp Pulse Resp BP Pulse Ox 98.7 F 93 18 111/62 100 04/16/20 16:23 04/16/20 16:23 04/16/20 16:23 04/16/20 16:23 04/16/20 16:23 Intake & Output 04/15/20 04/16/20 04/17/20 06:59 06:59 06:59 Intake Total 1380 1180 1216 Balance 1380 1180 1216 Weight 93 kg 92.1 kg General appearance: PRESENT: no acute distress Eye exam: PRESENT: PERRLA Respiratory exam: PRESENT: clear to auscultation melisa Cardiovascular exam: PRESENT: +S1, +S2 GI/Abdominal exam: PRESENT: soft Neurological exam: PRESENT: alert, CN II-XII grossly intact Results Laboratory Results: WBC 3.5 10^3/uL (4.0-10.5) L 04/05/20 05:33 RBC 3.68 10^6/uL (3.72-5.28) L 04/05/20 05:33 Hgb 10.9 g/dL (12.0-15.5) L D 04/05/20 05:33 Hct 31.7 % (36.0-47.0) L 04/05/20 05:33 MCV 86 fl (80-97) 04/05/20 05:33 MCH 29.7 pg (27.0-33.4) 04/05/20 05:33 MCHC 34.6 g/dL (32.0-36.0) 04/05/20 05:33 RDW 15.9 % (11.5-14.0) H 04/05/20 05:33 Plt Count 205 10^3/uL (150-450) 04/05/20 05:33 Lymph % (Auto) 30.9 % (13-45) 04/05/20 05:33 [place] % (Auto) 10.8 % (3-13) 04/05/20 05:33 Eos % (Auto) 0.7 % (0-6) 04/05/20 05:33 Baso % (Auto) 0.5 % (0-2) 04/05/20 05:33 Absolute Neuts (auto) 2.0 10^3/uL (1.7-8.2) 04/05/20 05:33 Absolute Lymphs (auto) 1.1 10^3/uL (0.5-4.7) 04/05/20 05:33 Absolute Monos (auto) 0.4 10^3/uL (0.1-1.4) 04/05/20 05:33 Absolute Eos (auto) 0.0 10^3/uL (0.0-0.6) 04/05/20 05:33 Absolute Basos (auto) 0.0 10^3/uL (0.0-0.2) 04/05/20 05:33 Total Counted 100 04/04/20 15:23 Seg Neutrophils % 57.1 % (42-78) 04/05/20 05:33 Seg Neuts % (Manual) 77 % (42-78) 04/04/20 15:23 Lymphocytes % (Manual) 17 % (13-45) 04/04/20 15:23 Monocytes % (Manual) 6 % (3-13) 04/04/20 15:23 Eosinophils % (Manual) 0 % (0-6) 04/04/20 15:23 Basophils % (Manual) 0 % (0-2) 04/04/20 15:23 Abs Neuts (Manual) 5.2 10^3/uL (1.7-8.2) 04/04/20 15:23 Abs Lymphs (Manual) 1.2 10^3/uL (0.5-4.7) 04/04/20 15:23 Abs Monocytes (Manual) 0.4 10^3/uL (0.1-1.4) 04/04/20 15:23 Absolute Eos (Manual) 0.0 10^3/uL (0.0-0.6) 04/04/20 15:23 Abs Basophils (Manual) 0.0 10^3/uL (0.0-0.2) 04/04/20 15:23 Platelet Estimate Cancelled 04/04/20 14:10 Large Platelets PRESENT 04/04/20 15:23 Platelet Comment ADEQUATE 04/04/20 15:23 Anisocytosis SLIGHT 04/04/20 15:23 Sodium 137.7 mmol/L (137-145) 04/16/20 05:58 Potassium 3.4 mmol/L (3.6-5.0) L 04/16/20 05:58 Chloride 107 mmol/L (98-107) 04/16/20 05:58 Carbon Dioxide 25 mmol/L (22-30) 04/16/20 05:58 Anion Gap 6 (5-19) 04/16/20 05:58 BUN 5 mg/dL (7-20) L 04/16/20 05:58 Creatinine 0.45 mg/dL (0.52-1.25) L 04/16/20 05:58 Est GFR ( Amer) > 60 (>60) 04/16/20 05:58 Est GFR (Non-Af Amer) Cancelled 04/04/20 15:23 Est GFR (MDRD) Non-Af > 60 (>60) 04/16/20 05:58 Glucose 86 mg/dL (75-110) 04/16/20 05:58 Calcium 7.7 mg/dL (8.4-10.2) L 04/16/20 05:58 Magnesium 1.8 mg/dL (1.6-2.3) 04/04/20 16:20 Total Bilirubin 0.5 mg/dL (0.2-1.3) 04/16/20 05:58 Direct Bilirubin 0.3 mg/dL (0.0-0.4) 04/16/20 05:58 Neonat Total Bilirubin Not Reportable 04/16/20 05:58 Neonat Direct Bilirubin Not Reportable 04/16/20 05:58 Neonat Indirect Bili Not Reportable 04/16/20 05:58 AST 35 U/L (14-36) 04/16/20 05:58 ALT 18 U/L (<35) 04/16/20 05:58 Alkaline Phosphatase 70 U/L (38-126) 04/16/20 05:58 Total Protein 5.8 g/dL (6.3-8.2) L 04/16/20 05:58 Albumin 2.4 g/dL (3.5-5.0) L 04/16/20 05:58 Lipase 39.4 U/L (23-300) 04/04/20 16:20 EGFR Cancelled 04/04/20 15:23 Urine Color CARLOS 04/04/20 12:27 Urine Appearance CLOUDY 04/04/20 12:27 Urine pH 5.0 (5.0-9.0) 04/04/20 12:27 Ur Specific [place] 1.026 04/04/20 12:27 Urine Protein 100 mg/dL (NEGATIVE) H 04/04/20 12:27 Urine Glucose (UA) NEGATIVE mg/dL (NEGATIVE) 04/04/20 12:27 Urine Ketones TRACE mg/dL (NEGATIVE) H 04/04/20 12:27 Urine Blood NEGATIVE (NEGATIVE) 04/04/20 12:27 Urine Nitrite NEGATIVE (NEGATIVE) 04/04/20 12:27 Urine Bilirubin SMALL (NEGATIVE) H 04/04/20 12:27 Urine Urobilinogen 4.0 mg/dL (<2.0) H 04/04/20 12:27 Ur Leukocyte Esterase MODERATE (NEGATIVE) H 04/04/20 12:27 Urine WBC (Auto) 37 /HPF 04/04/20 12:27 Urine RBC (Auto) 2 /HPF 04/04/20 12:27 Squamous Epi Cells Auto 13 /HPF 04/04/20 12:27 Urine Mucus (Auto) MANY /LPF 04/04/20 12:27 Urine Ascorbic Acid NEGATIVE (NEGATIVE) 04/04/20 12:27 Stl C. Difficile GDH Ag POSITIVE (NEGATIVE) 04/05/20 23:26 Stl C.difficile Tox A&B NEGATIVE (NEGATIVE) 04/05/20 23:26 Stl C.difficile Tox PCR POSITIVE (NEGATIVE) 04/05/20 23:26 Slides for Path Review Cancelled 04/04/20 14:10 Impressions: Abdomen CT 04/04/20 12:25 IMPRESSION: DIFFUSE FATTY INFILTRATION OF THE LIVER. OTHERWISE NO SIGNIFICANT OR ACUTE PROCESS IN THE ABDOMEN OR PELVIS. Stroke Is this a Stroke Patient?: No Acute Heart Failure Is this a Heart Failure Patient?: No
== END 2020-04-16 19:30 | disposition home or self-care (01) | DRG 373 ==
LOC: ER 11:18 → EH 18:10 → OBSVTOIN 18:10 → 4S 20:34
PROVIDERS: ADMIT Internal Medicine Geriatric Medicine; ATTEND Internal Medicine
DX: A04.71 Enterocolitis due to Clostridium difficile, recurrent (principal); E87.6 Hypokalemia; E86.0 Dehydration; Z79.899 Other long term (current) drug therapy; I10 Essential (primary) hypertension; J45.20 Mild intermittent asthma, uncomplicated; K21.9 Gastro-esophageal reflux disease without esophagitis; F31.9 Bipolar disorder, unspecified; Z87.891 Personal history of nicotine dependence; Z82.49 Family history of ischemic heart disease and other diseases of the circulatory system
CPT/HCPCS: 36415; 74150; 80048; 80053; 81001; 83690; 83735; 85025; 87086; 87088; 87186; 87324; 87449; 87493; 96360; 96361; 99285; J0610; J1650; J2405; J3370; J3480; J3490; J7030